=== PATIENT | female | born 1985 | race Caucasian/White ===

== ENCOUNTER → 2016-06-10 | Outpatient (CLI) | payer BC ==
[~2016-06-10] MED LIST: DOCO200C7 PO; ESOM20CA PO; HYDR-3989 PO; LEVO50TA4 PO
== END ==
LOC: LAB 12:55
PROVIDERS: ATTEND Obstetrics & Gynecology Reproductive Endocrinology
DX: N97.9 Female infertility, unspecified (principal)
CPT/HCPCS: 36415; 82670; 84144; 84702

== ENCOUNTER 2017-07-24 15:45 | Inpatient (IN) ==
[2017-07-24] MEDS ORDERED: FAMOTIDINE PB 20 MG/50 ML BAG IV ONE (18:03)
[2017-07-24] MEDS ORDERED: CEFAZOLIN PREMIX (MC ONLY) 2 GM/50 ML BAG IV ONE (18:03)
[2017-07-24] MEDS ORDERED: CEFAZOLIN 1 G INJECTION IVP ONE (18:03)
[2017-07-24] MEDS ORDERED: CITRIC ACID/SODIUM CITRATE 30ml PO ONE (18:03)
--- OUTSIDE RECORDS SUMMARY | 2017-07-24 18:21 | External Medical Summary | Continuity of Care Document ---
:1985 Author Organization [facility] Address [address] [place], [place] [address] Phone Care Team Providers Name Role Phone Slava Cullen MD Unavailable Unavailable Allergies, Adverse Reactions, Alerts Substance Reaction Severity Status ciprofloxacin Hives & Nausea Unknown Active CIPROFLOXACIN HCL Hives & Nausea Unknown Active Medications Medication Instructions Dosage Effective Status Comments Dates (start - stop) MICRhoGAM - - Active Ultra-Filtered PLUS 250 unit (50 mcg) intramuscular syringe Synthroid 75 mcg take 1 tablet by 75 MCG - Active tablet oral route every day 27 mg-0.8 take 1 tablet by Not Available - Active mg tablet oral route every day Synthroid 50 mcg TAKE ONE TABLET BY - No Longer tablet MOUTH DAILY Active Endometrin 100 mg insert 1 vaginal 100 MG - No Longer vaginal inserts insert by vaginal Active route 2 times every day Problems Condition Effective Dates (start - stop) Clinical Status 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) w/o 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 Follow-Up, Routine - Supervision of other high risk - pregnancies, first trimester Twin , - dichorionic/diamniotic, first trimester Encntr screen for infections w sexl - mode of transmiss Encounter for screening for oth - infec/parastc diseases Encounter for screening of - mother 10 weeks gestation of - Hemorrhage in early , - unspecified Twin , - dichorionic/diamniotic, first trimester 12 weeks gestation of - Hypothyroidism, unspecified Follow-Up, Routine Hypothyroidism, unspecified Spotting complicating , first - trimester 12 weeks gestation of - Spotting complicating , first - trimester 13 weeks gestation of - Thyroid Dysfunction w/ Routine Care, Multigravida 38 weeks gestation of - Active Procedures Procedure Date Initial OB Visit No 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 Culture OB Panel With An HIV TSH Venpnctr fngr/heel/ear stick routne Infct antign, chlamydia trac, ampl Neisseria Gonorrhoeae, Amplification Cult, bactr, ident isolate, urine Results Test Name Date and Time Measure Units Reference Range Abnormal Flag Comments Panel Description: OBSTETRIC PANEL WHITE BLOOD CELL 13.2 Thousand/uL 3.8-10.8 H COUNT 13:44:00 RED BLOOD CELL 4.67 Million/uL 3.80-5.10 N COUNT 13:44:00 HEMOGLOBIN 13.4 g/dL 11.7-15.5 N 13:44:00 HEMATOCRIT 40.6 % 35.0-45.0 N 13:44:00 MCV 86.9 fL 80.0-100.0 N 13:44:00 MCH 28.7 pg 27.0-33.0 N 13:44:00 MCHC 33.0 g/dL 32.0-36.0 N 13:44:00 RDW 13.7 % 11.0-15.0 N 13:44:00 PLATELET COUNT 294 Thousand/uL 140-400 N 13:44:00 MPV 10.8 fL 7.5-12.5 N 13:44:00 ABSOLUTE 97797 cells/uL 8963-4242 H NEUTROPHILS 13:44:00 ABSOLUTE 2416 cells/uL 850-3900 N LYMPHOCYTES 13:44:00 ABSOLUTE 541 cells/uL 200-950 N MONOCYTES 13:44:00 ABSOLUTE 79 cells/uL 15-500 N EOSINOPHILS 13:44:00 ABSOLUTE 40 cells/uL 0-200 N BASOPHILS 13:44:00 NEUTROPHILS 76.7 % N 13:44:00 LYMPHOCYTES 18.3 % N 13:44:00 MONOCYTES 4.1 % N 13:44:00 EOSINOPHILS 0.6 % N 13:44:00 BASOPHILS 0.3 % N 13:44:00 ANTIBODY SCREEN, NO ANTIBODIES N RBC W/REFL ID, 13:44:00 DETECTED Reference range TITER AND AG No antibodies detected This assay is a screening test for the detection of red blood cell antibodies. The test is not to be used for pretransfusion screening or for the medical management of an alloimmunized . ABO GROUP A 13:44:00 RH TYPE RH (D) 13:44:00 NEGATIVE RPR (DX) W/REFL NON-REACTIVE NON-REACTIV N TITER AND 13:44:00 E CONFIRMATORY TESTING HEPATITIS B NON-REACTIVE NON-REACTIV N SURFACE ANTIGEN 13:44:00 E RUBELLA ANTIBODY 3.86 index N Index (IGG) 13:44:00 Interpretation ----- <0.90 Not consistent with Immunity 0.90-0.99 Equivocal > or=1.00 Consistent with Immunity The presence of rubella IgG antibody suggests immunization or past or current infection withrubella virus.Test performed at [facility] [id number] [place] [address]Gcuacmr r: SHY CRUZ DO,MPH Panel Description: HIV 1/2 ANTIGEN/ANTIBODY,FOURTH GENERATION W/RFL HIV NON-REACTIVE NON-REACTIVE N HIV-1 antigen and HIV-1/HIV- 2 antibodies were AG/AB, 13:44:00 notdetected. There is no laboratory evidence of 4TH GEN HIVinfection. PLEASE NOTE: This information has been disclosed toyou from records whose confidentiality may beprotected by state law. If your state requires suchprotection, then the state law prohibits you frommaking any further disclosure of the informationwithout the specific written consent of the personto whom it pertains, or as otherwise permitted by law.A general authorization for the release of medical orother information is NOT sufficient for this purpose. For additional information please refer tohttp://education.[employer]/faq/IMI131(This link is being provided for informational/educational purposes only.) The performance of this assay has not been clinicallyvalidated in patients less than 2 years old. [place] [id number]: SHY CRUZ DO,MPH Panel Description: Thyrotropin [Units/volume] in Serum or Plasma TSH 13:44:00 0.70 mIU/L N Reference Range > or=20 Years 0.40-4.50 Ranges First trimester 0.26-2.66 Second trimester 0.55-2.73 Third trimester 0.43-2.91REPORT COMMENT:FASTING:NOTest performed at [facility] [address]Csxhoxqb: SHY CRUZ DO,MPH Panel Description: Bacteria identified in Urine by Culture CULTURE, URINE, SEE NOTE CULTURE, URINE, ROUTINE MICRO ROUTINE 13:46:00 NUMBER: [id number] TEST STATUS: FINAL SPECIMEN SOURCE: URINE SPECIMEN QUALITY: ADEQUATE RESULT: Multiple organisms present, each less than 10,000 CFU/mL. These organisms, commonly found on external and internal genitalia, are considered to be colonizers. No further testing performed.REPORT COMMENT:RFASTING:[place]KNOWNTest [place] [address]Hdllnjmg: SHY CRUZ DO,MPH Panel Description: CHLAMYDIA/N. GONORRHOEAE RNA, TMA CHLAMYDIA NOT DETECTED NOT DETECTED N TRACHOMATIS RNA, 13:44:00 TMA NEISSERIA NOT DETECTED NOT DETECTED N GONORRHOEAE RNA, 13:44:00 TMA [id number] SEE NOTE This test was 13:44:00 performed using the APTIMA COMBO2 Assay([employer] The analytical performance characteristics of this assay, when used to test [employer] specimens havebeen determined by [facility]. REPORT COMMENT:FASTING:UNKNO WNTest performed at [facility] [id number] [place] [address]Tbvdbehq: SHY CRUZ DO,MPH Panel Description: Pap Smear With HPV Reflex If ASCUS Document Pap Smear 13:15:00 See scanned report Advance Directives Directive Yes / No Effective Date File Name Unknown Encounters Encounter Practice Location Reason(s) Diagnoses Date Provider Care Team Description For Visit Members Ben Corbett Spotting Dec-0 Cordell Referring In Womens complicating 5-201 El. 700 Provider: Gustavo DIMAS, , first 7 Medical El [address] [id number] weeks [place] Cordell R, 1522, gestation of Jori Lopezta, 120, Medical [facility] [id number], [place], [facility] 120, [place] [id number] [place], tel:+[phone] , [place]. [place], tel: [phone]. [id number] tel:[phone] Ben Corbett Spotting Nov-3 Cordell Referring In Womens complicating 0-201 El. 700 Provider: Gustavo DIMAS, , first 7 Medical El [address] [id number] weeks Center Cordell R, 1522, gestation of Jori Lopez, 120, Medical [facility] [id number], [place], [facility] 120, [place] [id number] [place], tel:+[phone] , . [place], tel: [phone]. [id number] tel:[phone] Ben Corbett Hemorrhage in early Nov-2 [place] Referring In Womens , 9-201 [place]. Provider: Gustavo DIMAS, aylaTwin 7 700 El [address] , Medical Cordell R, 1522, dichorionic/diamnio Center 700 [place], tay, first , [facility], [id number] weeks 120, [place] [id number], gestation of Corbett, [facility] 120, Aric IBARRA, tel: [phone] [place], , [place]. [id number]. tel: tel: [phone] Ben Corbett Supervision of Cordell Referring In Womens other high risk 5-201 Printer. 700 Provider: Health JUDIE, pregnancies, first 7 Medical Printer PO Box trimesterTwin Center Cordell R, 1522, , , Jori 700 [place], dichorionic/diamnio 120, Medical STACEY, [facility], [facility] Aric, [place] [id number], trimesterEncntr [place], [facility] 120, screen for [id number] Corbett, tel: infections w sexl , [place]. [place], mode of tel: [phone]. 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 700 Provider: Gustavo DIMAS, w/o 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 6 [facility] Tommy [facility] PO Box Center L, [address], , Jori 609, [place], [facility], [place], [place], [place], [address]. , [place], tel: [place] [phone] tel: , [place]. tel: [phone] Ben Corbett Hypothyroidism, Apr- Cordell Referring In Womens unspecified 6-201 Printer. 700 Provider: Gustavo DIMAS, 6 Medical [facility] PO Box Center L, [address], , Jori [address], [place], 120, [place], [place], [place], [address]. , [place], tel: [place] [phone] tel: , [place]. tel: [phone] Ben Corbett Hypothyroidism, Dec-0 Cordell Referring In Womens unspecifiedPostpart 1-201 Printer. 700 Provider: Gustavo DIMAS, Follow-Up, 5 Medical Tommy [place] PO Box Routine Center L, [address], , Jori [address], [place], 120, [place], [place], [place], [address]. [id number], [place], tel: [place] [phone] tel: , [place]. tel: [phone] Ben Corbett Oct-2 Cordell Referring In Womens Follow-Up, Routine 0-201 Printer. 700 Provider: Gustavo DIMAS, Medical Tommy Ruiz PO Box Center L, [address], , Jori [address], [place], 120, [place], [place], [place], [address]. [id number], [place], tel: [phone] tel: , [place]. tel: [phone] Ben Corbett Thyroid Dysfunction Oct-0 Cordell Referring In Womens w/ PregnancyRoutine 1-201 Printer. 700 Provider: Gustavo DIMAS, [facility], 5 Medical Tommy [facility] PO Box [id number] Center L, [address], weeks gestation of , Jori [address], [place], 120, [place], [place], [place], [address]. [id number], [place], tel: [phone] tel: , [place]. tel: [phone] Ben Corbett Sep-1 [place] Referring In Womens 7-201 [place]. Provider: Gustavo DIMAS, [address] [place] [address] PO Box Medical Cordell R, 1522, Center [address] Dr Chang, [facility], 120, [place] [id number], [place], [facility] 120, [facility], A[place], tel:[phone] [place], , [place]. [id number]. tel: tel: [phone] Ben Corbett Mayo-1 Cordlel Referring In Womens 6-201 Printer. 700 Provider: Gustavo DIMAS, 5 Medical Printer PO Box Center Cordell R, 1522, , Jori 700 [place], [facility], Medical [place], [facility] [id number], [place], [facility] 120, [id number] [place], tel: , . [place], tel: [phone]. [id number] tel:[phone] Associates [place] Jesus-3 Cordell Referring In Womens 0-201 Printer. 700 Provider: Health PA, 3 [facility] PO Box Center L, [address], , Jori [address], [place], [facility], [place], [place], [place], [address]. , [place], tel: [phone] tel: , . tel: [phone] Associates [place] Mar-0 Cordell Referring In Womens 3-201 Printer. 700 Provider: Health PA, 2 Medical [facility] PO Box Center L, [address], , Jori [address], [place], [facility], [place], [place], [place], [address]. , [place], tel: [phone] tel: , [place]. tel: [phone] Family History Family Member Diagnosis Age At Onset Maternal Grandmother Cardiovascular Disease Close relative Cancer, breast Sister Gynecological Problem No family history of Ovarian Cancer Paternal Grandmother Thyroid Disorder No family history of Hypertension Paternal Grandmother Renal disease Maternal Grandmother Uterine Cancer Sister Cardiovascular Disorder No family history of Colon Cancer Maternal Grandmother Cancer, breast No family history of Diabetes Immunizations Vaccine Date Status Comments Influenza, injectable, completed Source: Source Unspecified quadrivalent, preservative free, 3 yrs or older Tdap completed Source: New Immunization Record Influenza, seasonal, injectable, completed Source: New Immunization Record preservative free, 3 yrs or older Rhophylac completed Source: New Immunization Record Payers Payer name Insurance type Covered alliance party ID Authorization(s) [facility] [place] [id number] [facility] [place] [id number] [place] [id number] [place] [id number] Social History Type Description Quantity Date Captured Alcohol Use Details No Caffeine Use Details No Tobacco Use Status Never smoked tobacco Smoking Status Never smoker Vital Signs Date / Height Weight BMI Pulse Blood Temperature Respiratory Body Head BMI Time: Rate Pressure Rate Surface Circumference percentile Area 261.10 40.8 132/72 -2017 lbs 9 mm[Hg] 1:18 kg/m PM eter (2) 261.10 40.8 -2017 lbs 9 1:17 kg/m PM eter (2) Chief Complaint And Reason For Visit Unknown Chief Complaint And Reason For Visit Reason For Referral Reason For Referral Unknown Plan Of Care Date Type Action Status Appointment Biju Pollard BOOKED Future Order: Lab Order Pap Smear With HPV Reflex If ASCUS Ordered ([id number]) Date Type Problem Goal Intervention Status Start Date Unknown. History Of Present Illness Encounter Date Complaint History Of Present Illness This patient has no known history of present illness Functional Status Encounter Date Functional Assessment Cognitive Assessment Unknown Medications Administered Medication Instructions Dosage Effective Dates (start - stop) Status Comments Drug Treatment Unknown Instructions Date Instruction Additional Information travel use of any medications (including supplements, vitamins, herbs, OTC drugs) domestic violence seat belt use childbirth classes / hospital facilities hospital registration genetic testing HIV and other routine tests risk factors identified by history anticipated course of care nutrition and weight gain counseling, special diet toxoplasmosis precautions (cats / raw meat) sexual activity exercise indications for ultrasound influenza vaccine environmental / work hazards
--- OUTSIDE RECORDS SUMMARY | 2017-07-24 18:21 | External Medical Summary | Continuity of Care Document ---
:1985 Author Organization [facility] [employer] [facility] Address [address] [place], [place] [address] Phone Care Team Providers Name Role Phone Slava Cullen MD Unavailable Unavailable Allergies, Adverse Reactions, Alerts Substance Reaction Severity Status ciprofloxacin Hives & Nausea Unknown Active CIPROFLOXACIN HCL Hives & Nausea Unknown Active No Known Drug Allergies Unknown No longer active Medications Medication Instructions Dosage Effective Dates Status Comments (start - stop) MICRhoGAM - - Active Ultra-Filtered PLUS 250 unit (50 mcg) intramuscular syringe Synthroid 75 mcg take 1 tablet by 75 MCG - Active tablet oral route every day 27 mg-0.8 take 1 tablet by Not Available - Active mg tablet oral route every day Problems Condition Effective Dates (start - stop) Clinical Status 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) w/o 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 Follow-Up, Routine - Hemorrhage in early , - unspecified Twin , - dichorionic/diamniotic, first trimester 12 weeks gestation of - Supervision of other high risk - pregnancies, first trimester Twin , - dichorionic/diamniotic, first trimester Encntr screen for infections w sexl - mode of transmiss Encounter for screening for oth - infec/parastc diseases Encounter for screening of - mother 10 weeks gestation of - Hypothyroidism, unspecified Follow-Up, Routine Hypothyroidism, unspecified Spotting complicating , first - trimester 12 weeks gestation of - Spotting complicating , first - trimester 13 weeks gestation of - Spotting complicating , - second trimester Twin , - dichorionic/diamniotic, second trimester 14 weeks gestation of - Thyroid Dysfunction w/ Routine Care, Multigravida 38 weeks gestation of - Active Procedures Procedure Date OB Visit No Charge RhIG, human, mini-dose, intramuscular use Injection Administration Results Test Name Date and Time Measure Units Reference Range Abnormal Flag Comments Unknown Advance Directives Directive Yes / No Effective Date File Name Unknown Encounters Encounter Practice Location Reason(s) Diagnoses Date Provider Care Team Description For Visit Members Ben Corbett Spotting Dec-1 [place]ell Referring In Womens complicating 3-201 El. 700 Provider: Gustavo DIMAS, , second 7 Medical El BONNER Box trimesterTwin [place], 1522, , Jori Lopez [place], dichorionic/diamnio 120, Medical STACEY, [facility], [facility] [id number], [email or web address] weeks STACEY [facility] 120, [place] gestation of [id number] [place], tel: , [place]. [place], tel: [phone]. [id number] tel:[phone] Ben Jennings Dec-0 Cordell Referring In Womens complicating 5-201 El. 700 Provider: Gustavo DIMAS, , first 7 Medical lE [address] Box [id number] weeks Emily [place], 1522, gestation of Jori Lopez [place], 120, Medical STACEY [facility] [id number], [facility] 120, [place] [id number] [place], tel: , [facility], tel: [phone]. [id number] tel:[phone] Ben Corbett Spotting Nov-3 [place] Referring In Womens complicating 0-201 El. 700 Provider: Gustavo DIMAS, , first 7 Medical El PO Box [id number] weeks Center Cordell R, 1522, gestation of Jori Lopez 700 [place], 120, Medical [place] IBARRA, [place] [id number], [place], [facility] 120, [place] [id number] [place], tel: , [place]. [place], tel: [phone]. [phone] tel:[phone] Ben Corbett Hemorrhage in early Nov-2 [place] Referring In Womens , 9-201 [place]. Provider: Gustavo DIMAS, unspecifiedTwin 7 700 El PO Box , Medical Cordell R, 1522, dichorionic/diamnio Center 700 tay [place], first Lopez, [facility], [id number] weeks 120, Center [id number], gestation of Corbett, [facility] 120, [place] IBARRA, tel: [phone] [place], , [place]. [id number]. tel: tel: [phone] Ben Corbett Supervision of Jan-1 Cordell Referring In Womens other high risk 5-201 [place]. 700 Provider: Gustavo DIMAS, pregnancies, first 7 Medical El PO Box trimesterTwin Center Cordell R, 1522, , Jori Lopez, dichorionic/diamnio 120, Medical STACEY [facility], [facility] Aric [place] [id number], trimesterEncntr [place], [facility] 120, [place] screen for [id number] [place], tel: infections w sexl , [place]. [place], mode of tel: [phone]. 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 700 Provider: Gustavo DIMAS, w/o 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 6 Medical Tommy Irisel PO Box Center L, [address], Jori Lopez, Chang 120, [place], [place], [place], [address]. , [place], tel: [place] [phone] tel: , [place]. tel: [phone] Associates [place] Hypothyroidism, b- Cordell Referring In Womens unspecified 6 [place]. 700 Provider: Gustavo DIMAS, 6 Medical Tommy Ruiz PO Box Center L, [address], Jori Lopez, [place], 120, [place], [place], [place], [address]. , [place], tel: [phone] tel: , [place]. tel: [phone] Associates [place] Hypothyroidism, Dec-0 Cordell Referring In Womens unspecifiedPostpart [place]. 700 Provider: Gustavo DIMAS Follow-Up, 5 Medical Tommy Ruiz PO Box Routine Center L, [address], Jori Lopez, [place], [facility], [place], [place], [place], [address]. , [place], tel: [phone] tel: , [place]. tel: [phone] Ben Corbett Oct-2 Cordell Referring In Womens Follow-Up, Routine 0-201 [place]. 700 Provider: Gustavo DIMAS, 5 Medical Tommy Ruiz PO Box Center L, [address], Jori Lopez, [place], [facility], [place], [place], [place], [address]. , [place], tel: [phone] tel: , [place]. tel: [phone] Associates [place] Thyroid Dysfunction Oct-0 Cordell Referring In Womens w/ PregnancyRoutine [place]. 700 Provider: Gustavo DIMAS [facility], 5 Medical Tommyrneata Ruiz PO Box [id number] Center L, [address], weeks gestation of Jori Lopez, [place], 120, [place], [place], [place], [address]. , [place], tel: [phone] tel: , [place]. tel: [phone] Ben Corbett Sep-1 [place] Referring In Womens 7-201 [place]. Provider: Health JUDIE, [address] [place] [address] Cordell Cornell, 1522, Center [address] Chang, [facility], 120, [place] [id number], [place], [facility] 120, [email or web address] [place], tel: [phone] [place], , [place]. [id number]. tel: tel: [phone] Ben Corbett Mayo-1 Cordell Referring In Womens 6-201 [place]. 700 Provider: Health PA, 5 [facility] Cordell Cornell, 1522, , Jori 700 [place], [facility], [facility], [place], [place] [id number], [place], [facility] 120, [id number] [place], tel: , [place], tel: [phone]. [id number] tel:[phone] Ben Corbett Jesus-3 Cordell Referring In Womens 0-201 [place]. 700 Provider: Health JUDIE, 3 [facility] Box Center L, [address], , Jori 609, [place], [facility], [place], [place], [place], [address]. [id number], [place], tel: [phone] tel: , [place]. tel: [phone] Ben Corbett Jesus-0 Cordell Referring In Womens 3-201 [place]. 700 Provider: Health PA, 2 [facility] Box Center L, [address], , Jori 609, [place], 120, [place], [place], [place], [address]. [id number], [place], tel: [phone] tel: , [place]. tel: [phone] Family History Family Member Diagnosis Age At [...] Record Payers Payer name Insurance type Covered libertarian ID Authorization(s) [facility] [id number] [facility] [id number] [facility] [id number] [facility] [id number] Social History Type Description Quantity Date Captured Alcohol Use Details No Caffeine Use Details Unknown Tobacco Use Status Unknown Smoking Status Never smoker Vital Signs Date / Height Weight BMI Pulse Blood Temperature Respiratory Body Head BMI Time: Rate Pressure Rate Surface Circumference percentile Area 264.10 41.3 122/68 2017 lbs 6 mm[Hg] 8:28 kg/m AM eter (2) Chief Complaint And Reason For [...]
--- OUTSIDE RECORDS SUMMARY | 2017-07-24 18:22 | External Medical Summary | Continuity of Care Document ---
:1985 Author Organization [facility] Address [address] [place], [place] [id number] Phone Care Team Providers Name Role Phone Slava Cullen MD Unavailable Unavailable Allergies, Adverse Reactions, Alerts Substance Reaction Severity Status ciprofloxacin Hives & Nausea Unknown Active CIPROFLOXACIN HCL Hives & Nausea Unknown Active Medications Medication Instructions Dosage Effective Dates Status Comments (start - stop) iron 325 mg (65 mg take 1 tablet by 325 MG - Active iron) tablet ORAL route every day loratadine 10 mg take 1 tablet by 10 MG - Active tablet oral route every day Stool Softener 50 take 1 capsule by 50 MG - Active mg capsule oral route every day at bedtime as needed Rhophylac 1,500 - Active unit (300 mcg)/2 mL injection syringe folic acid 800 mcg take 3 tablet by 2.4 MG - Active tablet oral route every day Synthroid 75 mcg take 1 tablet by 75 MCG - Active tablet oral route every day 27 mg-0.8 take 1 tablet by Not Available - Active mg tablet oral route every day Problems Condition Effective Dates (start - stop) Clinical Status 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) w/o 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 Follow-Up, Routine - Twin , - dichorionic/diamniotic, third trimester 29 weeks gestation of - Twin , - dichorionic/diamniotic, second trimester Previous Low Transverse - Endo, nutritional and metab diseases - comp preg, second tri 22 weeks gestation of - Twin , - dichorionic/diamniotic, third trimester 31 weeks gestation of - Hypothyroidism, unspecified Follow-Up, Routine Hypothyroidism, unspecified Supervision of other high risk - pregnancies, first trimester Twin , - dichorionic/diamniotic, first trimester Encntr screen for infections w sexl - mode of transmiss Encounter for screening for oth - infec/parastc diseases Encounter for screening of - mother 10 weeks gestation of - Hemorrhage in early , - unspecified Twin , - dichorionic/diamniotic, first trimester 12 weeks gestation of - Spotting complicating , first - trimester 12 weeks gestation of - Spotting complicating , first - trimester 13 weeks gestation of - Spotting complicating , - second trimester Endo, nutritional and metab diseases - comp preg, second tri 15 weeks gestation of - Spotting complicating , - second trimester Twin , - dichorionic/diamniotic, second trimester 14 weeks gestation of - Spotting complicating , - second trimester Twin , - dichorionic/diamniotic, second trimester Previous Low Transverse - 27 weeks gestation of - Oth related conditions, - second trimester Twin , - dichorionic/diamniotic, second trimester 17 weeks gestation of - Twin , - dichorionic/diamniotic, second trimester Previous Low Transverse - Endo, nutritional and metab diseases - comp preg, second tri 19 weeks gestation of - Twin , - dichorionic/diamniotic, second trimester 19 weeks gestation of - Twin , - dichorionic/diamniotic, second trimester 27 weeks gestation of - Twin , - dichorionic/diamniotic, second trimester 25 weeks gestation of - Twin , - dichorionic/diamniotic, second trimester Endo, nutritional and metab diseases - comp preg, second tri 25 weeks gestation of - Type A blood, Rh negative - Thyroid Dysfunction w/ Routine Care, Multigravida 38 weeks gestation of - Active Procedures Procedure Date OB Visit No Charge Results Test Name Date and Time Measure Units Reference Range Abnormal Flag Comments Unknown Advance Directives Directive Yes / No Effective Date File Name Unknown Encounters Encounter Practice Location Reason(s) Diagnoses Date Provider Care Team Description For Visit Members [facility] Twin , Cord[place] Referring In Womens dichorionic/diamn 2-201 El. [place] Provider: katrin Finley, third 8 Medical El [address] [id number] weeks [place], 1522, gestation of Jori Lopez, 120, Medical [facility] [id number], STACEY, [facility] 120, [id number] [place], tel: , . ST[place]Y, [id number] tel: [phone]. [id number] tel:[phone] Ben [place] Twin , Cordell Referring In Womens dichorionic/diamn 8-201 El. [facility] Provider: katrin Finley, third 8 Medical El PO [address] [id number] weeks [place], 1522, gestation of Jori Lopez, 120, Medical Aric IBARRAFormerly [facility] [id number], [place], Jori 120, [place] [id number] [place], tel: , [place]. [place], tel:[phone]. [id number] tel:[phone] Ben [place] Mar- Hutchinson Referring In Womens 6-201 [place]. Provider: Gustavo DIMAS, 8 700 [facility] [place], 1522, [place] [address], [facility] [place], 120, [place] [id number], [place], Jori 120, [place] Airc IBARRA, tel:[phone] [place], , [place]. [id number]. tel: tel: [phone] Ben [place] Twin , May- Cordell Referring In Womens dichorionic/diamn 4-201 [place]. 700 Provider: katrin Finley, second 8 Medical [facility] Box weeks [place], 1522, gestation of Dr [facility] Saskia Downing, 120, Medical Aric IBARRAFormerly [facility] [id number], [place], Jori 120, [place] [id number] Aric, tel: , [place]. [place], tel: [phone]. [id number] tel:[phone] Ben [place] Spotting May- Cordell Referring In Womens Ultrasound complicating -201 [place]. 700 Provider: Gustavo DIMAS, , second 8 Medical [facility] Shayla trimesterTwin [place] Cornell, 1522, , Dr Jori Saskia Downign, dichorionic/diamn 120, Medical STACEY, iot, [facility] [id number], trimesterPrevious [place], [facility] 120, [place] Low Transverse [id number] Aric, tel: C-[id number] weeks , [place]. [place], gestation of tel:[phone]. [id number] tel:[phone] Ben [place] Twin , Fe- Cordell Referring In Womens dichorionic/diamn 7-201 [place]. 700 Provider: Gustavo DIMAS iotblake, second 8 Medical [facility] Box trimesterEndo, [place], 1522, nutritional and [place] Lopez, metab diseases 120, Medical [place], comp preg, second AricFormerly [facility] [id number], tri25 weeks [place], [facility] 120, [place] gestation of [id number] Aric, tel: pregnancyType A , [place]. [place], blood, Rh tel:[phone]. negative [id number] tel:[phone] Ben [place] Twin , Feb-2 [place]ell Referring In Womens dichorionic/diamn 3-201 [place]. 700 Provider: Health JUDIE iotic, second 8 Medical El PO Box [id number] weeks Center [place] Cornell, 1522, gestation of [place] Lopez, 120, Medical [place], [place], [place] [id number], [place], [facility] 120, [place] [id number] Aric, tel: , [place]. [place], tel:[phone]. [id number] tel:[phone] Ben [place] Twin , Feb-0 [place]ell Referring In Womens dichorionic/diamn 8-201 [place]. 700 Provider: Health JUDIE iotic, second 8 Medical [place] PO Box trimesterPrevious Center Cordell R, 1522, Low Transverse Dr Jori Saskia Downing, C-SectionEndo, 120, Medical [place], nutritional and AricFormerly [facility] [id number], metab diseases [place], [facility] 120, [place] comp preg, second [id number] [place], tel: tri22 weeks , [place]. [place], gestation of tel:[phone]. [id number] tel:[phone] Ben [place] Feb-0 Cordell In Womens 1-201 [place]. 700 Health [place], 8 Medical PO Box Center 1522, Jori Lopez, 120, STACEY, [place], [id number], [place], [place] [id number] tel: , [place]. tel: [phone] Ben [place] Oth Jesus-2 Cord[place] Referring In Womens related 4-201 [place]. 700 Provider: Health donald DIMAS, 8 Medical [place] PO Box second trimester Center Cord[place] Cornell, 1522, Jori Lopez, 120, Medical A[place] IBARRA, [place] [id number], [place], Jori 120, [place] [id number] Aric, tel: , [place]. [place], tel:[phone]. [id number] tel:[phone] [facility] Twin , Jesus-1 Cordell Referring In Womens dichorionic/diamn 8-201 El. 700 Provider: katrin Finley, second 8 Medical El PO Box [id number] weeks Center [place] Cornell, 1522, gestation of Jori Lopez, 120, Medical Aric IBARRA, [place] [id number], [place], Jori 120, [place] [id number] Aric, tel: , [place]. [place], tel:[phone]. [id number] tel:[phone] [facility] Twin , Jesus-1 Cordell Referring In Womens Ultrasound dichorionic/diamn 8-201 El. 700 Provider: katrin Finley, second 8 Medical El PO Box trimesterPrevious Center [place] Cornell, 1522, Low Transverse Jori Lopez, C-SectionEndo, 120, Medical STACEY, nutritional and AricFormerly [facility] [id number], metab diseases [place], Jori 120, [place] comp preg, second [id number] Aric, tel: tri19 weeks , [place]. [place], gestation of tel: [phone]. [id number] tel:[phone] Ben [place] Twin , Jesus-0 Cordell Referring In Womens dichorionic/diamn 3-201 El. 700 Provider: Gustavo DIMAS iotblake, second 8 Medical El PO Box [id number] weeks Center [place] Cornell, 1522, gestation of Jori Lopez, 120, Medical Aric IBARRA, [place] [id number], [place], Jori 120, [place] [id number] Aric, tel: , [place]. [place], tel:[phone]. [id number] tel:[phone] [facility] Spotting Dec-2 Cordell Referring In Womens complicating 0-201 El. 700 Provider: Gustavo DIMAS, , second 7 Medical El PO Box trimesterEndo, Center [place] Cornell, 1522, nutritional and [place] Lopez, metab diseases 120, Medical [place], comp preg, second AricFormerly [facility] [id number], tri15 weeks [place], [place]ori 120, [place] gestation of [id number] Aric, tel: , [place]. [place], tel: [phone]. [id number] tel:[phone] [facility] Spotting Dec-1 Cordell Referring In Womens complicating 3-201 El. 700 Provider: Gustavo DIMAS, , second 7 Medical El PO Box trimesterTwin Center Cordell R, 1522, , J[place] Lopez, dichorionic/diamn 120, Medical [place], iotic, second AricFormerly [facility] [id number], weeks [place], Jori 120, [place] gestation of [id number] Aric, tel: , [place]. [place], tel: [phone]. [id number] tel:[phone] Ben [place] Spotting Dec-0 Cordell Referring In Womens complicating 5-201 El. 700 Provider: Gustavo DIMAS, , first 7 Medical El PO Box [id number] weeks Center Cord[place] R, 1522, gestation of Jori Lopez, 120, Medical Aric IBARRAFormerly [facility] [id number], [place], Jori 120, [place] [id number] Aric, tel: , [place]. [place], tel: [phone]. [id number] tel:[phone] Ben [place] Spotting Nov-3 Cordell Referring In Womens complicating 0-201 El. 700 Provider: Gustavo DIMAS, , first 7 Medical El PO Box [email or web address] weeks Center Cordell R, 1522, gestation of Jori Lopez, 120, Medical Aric IBARRAFormerly [facility] [id number], [place], Jori 120, [place] [id number] Aric, tel: , [place]. [place], tel: [phone]. [id number] tel:[phone] Ben [place] Hemorrhage in Nov-2 [place] Referring In Womens early , 9-201 [place]. Provider: Gustavo DIMAS, unspecifiedTwin 7 700 El PO Box , Medical [place] R, 1522, dichorionic/diamn Center 700 [place], iotic, first , [facility], [id number] weeks 120, [place] [id number], gestation of Kamrar, Ojri 120, [place] Aric IBARRA, tel:[phone] [place], , [place]. [id number]. tel: tel: [phone] Ben [place] Supervision of Cordell Referring In Womens other high risk 5-201 [place]. 700 Provider: Health [place], pregnancies, 7 Medical [place] PO Box first Center Cord[place] R, 1522, trimesterTwin , Jori 700 [place], , 120, Medical [place], dichorionic/diamn CorbettFormerly [facility] [id number], [facility], [facility], Jori 120, [place] trimesterEncntr [id number] Aric, tel: screen for , [place]. [place], infections w sexl tel: [phone]. 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 700 Provider: Health JUDIE, (routine) w/o abn 6 [facility] PO Box findings Center L, [address], , Jori 609, [place], 120, [place], [place], [place], [address]. , [place], tel: [place] [phone] tel: , [place]. tel: [phone] Ben [place] Hypothyroidism, Apr- Cordell Referring In Womens unspecified -201 [place]. 700 Provider: Health JUDIE, 6 [facility] PO Box Center L, [address], , Jori 609, [place], 120, [place], [place], [place], [address]. , [place], tel: [place] [phone] tel: , . tel: [phone] Ben [place] Hypothyroidism, Dec-0 Cord[place] Referring In Womens unspecifiedPostpa 1-201 [place]. 700 Provider: Health JUDIE, rtum Follow-Up, 5 [facility] PO Box Routine Center L, [address], , Jori 609, [place], 120, [place], [place], [place], [address]. [id number], [place], tel: [place] [phone] tel: , [place]. tel: [phone] Ben [place] Oct-2 Cordell Referring In Womens Follow-Up, 0-201 [place]. 700 Provider: Health JUDIE, Routine 5 Medical [facility] PO Box Center L, [address], , [address] 609, [place], 120, [place], [place], [place], [address]. [id number], [place], tel: [phone] tel: , [place]. tel: [phone] Ben [place] Thyroid Oct-0 [place] Referring In Womens Dysfunction w/ -201 [place]. 700 Provider: Health JUDIE, PregnancyRoutine 5 Medical [facility] PO Box Care, Center L, [address], [id number] , Jori [address], [place], weeks gestation 120, [place], [place], [place], [address]. , [place], tel: [phone] tel: , [place]. tel: [phone] Ben [place] Sep-1 [place] Referring In Womens 7-201 [place]. Provider: Health [place], 5 700 [facility] Box Medical Cord[place] R, 1522, Center [address] Dr Chang, [facility], 120, [place] [id number], Aric, [facility] 120, [facility], [place], tel:[phone] [place], , [place]. [id number]. tel: tel: [phone] Ben [place] Mayo-1 [place]ell Referring In Womens 6-201 [place]. 700 Provider: Health JUDIE, 5 Medical [facility] Box Center Cord[place] R, 1522, , Jori 700 [place], 120, Medical [place], AricFormerly [facility] [id number], [place], Jori 120, [place] [id number] [place], tel: , [place]. [place], tel: [phone]. [id number] tel:[phone] [facility] Mar-3 [place] Referring In Womens 0-201 [place]. 700 Provider: Health PA, 3 Medical [facility] PO Box Center L, [address], Dr Jori [address], [place], [facility], [place], [place], [place], [address]. [id number], [place], tel: [place] [phone] tel: , [place]. tel: [phone] [facility] Mar-0 [place] Referring In Womens 3-201 [place]. 700 Provider: Health PA, 2 Medical [facility] PO Box Center L, [address], , Jori [address], [place], [facility], [place], [place], [place], [address]. , [place], tel: [phone] tel: , [place]. tel: [phone] Family History Family Member Diagnosis Age At [...] of Diabetes Immunizations Vaccine Date Status Comments Tdap completed Source: New Immunization Record Rhophylac completed Source: New Immunization Record Influenza, injectable, completed Source: Source Unspecified quadrivalent, preservative free, 3 yrs or older Tdap completed Source: New Immunization Record Influenza, seasonal, injectable, completed Source: New Immunization Record preservative free, 3 yrs or older Rhophylac completed Source: New Immunization Record Payers Payer name Insurance type Covered libertarian ID Authorization(s) [facility] [id number] [facility] [id number] [place] [id number] [place] [id number] [place] [id number] [place] [id number] Social History Type Description Quantity Date Captured Alcohol Use Details No Caffeine Use Details Unknown Tobacco Use Status Unknown Smoking Status Never smoker Vital Signs Date / Height Weight BMI Pulse Blood Temperature Respiratory Body Head BMI Time: Rate Pressure Rate Surface Circumference percentile Area 283.40 44.3 138/74 -2018 lbs 8 mm[Hg] 1:43 kg/m PM eter (2) Chief Complaint And Reason For Visit Unknown Chief Complaint And Reason For Visit Reason For Referral Reason For Referral Unknown Plan Of Care Date Type Action Status Appointment Biju Pollard BOOKED Appointment Dago Pollard BOOKED Appointment Biju Pollard BOOKED Appointment Biju Pollard [facility] [place] Future Order: Radiology Order Ultrasound OB Follow-up ([id number]) Ordered Future Order: Radiology Order Complete OB Ultrasound > 14 Ordered Weeks ([id number]) Future Order: Lab Order Pap Smear With [...]
--- OUTSIDE RECORDS SUMMARY | 2017-07-24 18:22 | External Medical Summary | Continuity of Care Document ---
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) w/o 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 Follow-Up, Routine - Twin , - dichorionic/diamniotic, third trimester Previous Low Transverse - Anemia complicating , third - trimester Endo, nutritional and metab diseases - comp preg, third tri Twin , - dichorionic/diamniotic, second trimester Previous Low Transverse - Endo, nutritional and metab diseases - comp preg, second tri 22 weeks gestation of - Twin , - dichorionic/diamniotic, third trimester 31 weeks gestation of - Twin , - dichorionic/diamniotic, third trimester 33 weeks gestation of - Hypothyroidism, unspecified Follow-Up, [...] Transverse - 27 weeks gestation of - Spotting complicating , third - trimester Twin , - dichorionic/diamniotic, third trimester Previous Low Transverse - 32 weeks gestation of - Oth related conditions, [...] - Type A blood, Rh negative - Twin , - dichorionic/diamniotic, third trimester Previous Low Transverse - Endo, nutritional and metab diseases - comp preg, third tri Type A blood, Rh negative - Twin , - dichorionic/diamniotic, third trimester 29 weeks gestation of - Thyroid Dysfunction w/ Routine Care, Multigravida 38 weeks gestation of - Active Procedures Procedure Date OB Visit No Charge Automated hemogram (CBC) Assay thyroid stimulating hormone Venpnctr fngr/heel/ear stick routne Results Test Name Date and Time Measure Units Reference Range Abnormal Flag Comments Panel Description: CBC With Differential/Platelet WBC 09:19:00 11.4 x10E3/uL 3.4-10.8 H RBC 09:19:00 4.12 x10E6/uL 3.77-5.28 Hemoglobin 09:19:00 11.2 g/dL 11.1-15.9 Hematocrit 09:19:00 36.0 % 34.0-46.6 MCV 09:19:00 87 fL 79-97 MCH 09:19:00 27.2 pg 26.6-33.0 MCHC 09:19:00 31.1 g/dL 31.5-35.7 L RDW 09:19:00 15.7 % 12.3-15.4 H Platelets 09:19:00 262 x10E3/uL 150-379 Neutrophils 09:19:00 81 % Not Estab. Lymphs 09:19:00 13 % Not Estab. Monocytes 09:19:00 4 % Not Estab. Eos 09:19:00 1 % Not Estab. Basos 09:19:00 0 % Not Estab. Immature Cells 09:19:00 Neutrophils (Absolute) 09:19:00 9.3 x10E3/uL 1.4-7.0 H Lymphs (Absolute) 09:19:00 1.5 x10E3/uL 0.7-3.1 Monocytes(Absolute) 09:19:00 0.4 x10E3/uL 0.1-0.9 Eos (Absolute) 09:19:00 0.1 x10E3/uL 0.0-0.4 Baso (Absolute) 09:19:00 0.0 x10E3/uL 0.0-0.2 Immature Granulocytes 09:19:00 1 % Not Estab. Immature Grans (Abs) 09:19:00 0.1 x10E3/uL 0.0-0.1 NRBC 09:19:00 Hematology Comments: 09:19:00 Panel Description: Thyrotropin [Units/volume] in Serum or Plasma by Detection limit <=0.05 mIU/L TSH 09:19:00 1.800 uIU/mL 0.450-4.500 Reference Interval : First Trimester 0.100 - 2.500 Second Trimester 0.200 - 3.000 Third Trimester 0.300 - 3.000 . Non- Adult 0.450 - 4.500 Advance Directives Directive Yes / No Effective Date File Name Unknown Encounters Encounter Practice Location Reason(s) Diagnoses Date Provider Care Team Description For Visit Members Ben Corbett Twin , Sobbing Referring In Womens dichorionic/diamn 3-201 [place]. Provider: katrin Finley, third 8 700 [facility] trimesterPrevious Medical Cordell Cornell, 1522, Low Transverse Center [address] [place], [place] [address], nutritional and [facility] [id number], metab diseases 120, Jori 120, [place] comp preg, third Aric Corbett, tel: triType A blood, [place], [place], Rh negative [address], [id number]. [place]. tel: tel: [phone] Ben Corbett Twin , Apr-2 Cordell Referring In Womens dichorionic/diamn 5-201 [place]. [facility] Provider: Gustavo DIMAS [email or web address], third 8 Medical [facility] Box [email or web address] weeks Center Cordell Cornell, 1522, gestation of Jori Lopez, 120, Medical [facility] [id number], [place], Jori 120, [place] [id number] Aric, tel: , [place]. [place], tel: [phone]. [id number] tel:[phone] Ben Corbett Spotting Apr-1 Cordell Referring In Womens Ultrasound complicating -201 [place]. 700 Provider: Gustavo DIMAS, , third 8 Medical El PO Box trimesterTwin Center Cordell Cornell, 1522, , [place] Lopez, dichorionic/diamn 120, Medical STACEY, iotic, third Aric [place] [id number], trimesterPrevious [place], J[place] 120, [place] Low Transverse [id number] Aric, tel: C-[id number] weeks , [place]. [place], gestation of tel:[phone]. [id number] tel:[phone] Ben Corbett Twin , Apr-1 Cordell Referring In Womens dichorionic/diamn 9-201 [place]. 700 Provider: Health PA, iotic, third 8 Medical El PO Box trimesterPrevious Center Cordell Cornell, 1522, Low Transverse J[place] Lopez, C-SectionAnemia 120, Medical STACEY, complicating Aric [place] [id number], , third [place], Jori 120, [place] trimesterEndo, [id number] Aric, tel: nutritional and , [place]. [place], metab diseases tel:[phone]. comp preg, third [id number] tel: tri [phone] Ben Corbett Twin , Apr-1 Cordell Referring In Womens dichorionic/diamn 2-201 [place]. 700 Provider: Health PA, iotic, third 8 Medical El PO Box [email or web address] weeks Center Cordell Cornell, 1522, gestation of Jori Lopez, 120, Medical [facility] [id number], [place], Jori 120, [place] [id number] Aric, tel: , [place]. [place], tel:[phone]. [id number] tel:[phone] Ben Corbett Twin , Mar-2 Cordell Referring In Womens dichorionic/diamn 8-201 [place]. 700 Provider: Health PA, iotic, third 8 Medical El PO Box [id number] weeks Center Cordell Cornell, 1522, gestation of Jori Lopez, 120, Medical A[facility] [id number], [place], Jori 120, [place] [id number] Aric, tel: , [place]. [place], tel:[phone]. [id number] tel:[phone] Ben Corbett Mar-1 [place] Referring In Womens 6-201 [place]. Provider: Health JUDIE, 8 700 [facility] Cordell Cornell, 1522, Center [address], [facility] [place], 120, Center [id number], Corbett, [facility] 120, [place] Aric IBARRA, tel: [phone] [place], , [place]. [id number]. tel: tel: [phone] Ben Corbett Twin , May- Cordell Referring In Womens dichorionic/diamn 4-201 [place]. 700 Provider: Health JUDIE, iotic, second 8 Medical [facility] Box [email or web address] weeks Center Cordell Cornell, 1522, gestation of Dr [facility] Saskia Downing, 120, Medical [facility] [id number], [place], [facility] 120, [place] [id number] Aric, tel: , [place]. [place], tel:[phone]. [id number] tel:[phone] Ben Corbett Spotting May- Cordell Referring In Womens Ultrasound complicating [place]. 700 Provider: Health JUDIE, , second 8 Medical [facility] Box trimesterTwin Center Cordell Cornlel, 1522, , Dr [facility] Saskia Downing, dichorionic/diamn 120, Medical STACEY, iotic, [facility] [id number], trimesterPrevious [place], [facility] 120, [place] Low Transverse [id number] Aric, tel: C-[id number] weeks , [place]. [place], gestation of tel:[phone]. [id number] tel:[phone] Ben Corbett Twin , Apr- Cordell Referring In Womens dichorionic/diamn 7-201 [place]. 700 Provider: Health JUDIE iotic, second 8 Medical [facility] Box trimesterEndo, [place] Cordell R, 1522, nutritional and Dr [place] [address] [place], metab diseases 120, Medical [place], comp preg, second [facility] [id number], tri25 weeks [place], [facility] 120, [place] gestation of [id number] Aric, tel: pregnancyType A , [place]. [place], blood, Rh tel:[phone]. negative [id number] tel:[phone] Associates Aric Twin , Apr-2 Cordell Referring In Womens dichorionic/diamn 3-201 [place]. 700 Provider: Health JUDIE iotic, second 8 Medical El PO Box [id number] weeks Center Cordell R, 1522, gestation of Jori Lopez, 120, Medical STACEY, Aric, [place] [id number], [place], Jori 120, [place] [id number] Aric, tel: , [place]. [place], tel:[phone]. [id number] tel:[phone] Associates Aric Twin , Apr-0 Cordell Referring In Womens dichorionic/diamn 8-201 [place]. 700 Provider: katrin Finley, second 8 Medical El PO Box trimesterPrevious Center Cordell R, 1522, Low Transverse Jori Lopez, C-SectionEndo, 120, Medical STACEY, nutritional and [facility] [id number], metab diseases [place], Jori 120, [place] comp preg, second [id number] Aric, tel: tri22 weeks , [place]. [place], gestation of tel:[phone]. [id number] tel:[phone] Ben Corbett Oth Jesus- Cordell Referring In Womens related 4-201 [place]. 700 Provider: Gustavo DIMAS, conditions, 8 Medical El PO Box second trimester Center Cordell R, 1522, Jori Lopez, 120, Medical Aric [facility] [id number], [place], Jori 120, [place] [id number] Aric, tel: , [place]. [place], tel: [phone]. [id number] tel:[phone] Associates Aric Twin , Mar- Cordell Referring In Womens dichorionic/diamn 8-201 [place]. 700 Provider: Health JUDIE iotic, second 8 Medical El PO Box weeks Center Cordell R, 1522, gestation of Jori Lopez, 120, Medical STACEY, [facility] [id number], [place], Jori 120, [place] [id number] Aric, tel: , [place]. [place], tel: [phone]. [id number] tel:[phone] Ben Corbett Twin , Jesus-1 Cordell Referring In Womens Ultrasound dichorionic/diamn 8-201 [place]. 700 Provider: katrin Finley, second 8 Medical El PO Box trimesterPrevious Center Cordell Cornell, 1522, Low Transverse Jori Lopez, C-SectionEndo, 120, Medical STACEY, nutritional and Aric, [place] [id number], metab diseases [place], Jori 120, [place] comp preg, second [id number] Aric, tel: tri19 weeks , [place]. [place], gestation of tel: [phone]. [id number] tel:[phone] Ben Corbett Twin , Jesus-0 Cordell Referring In Womens dichorionic/diamn 3-201 [place]. 700 Provider: katrin Finley, second 8 Medical El PO Box [email or web address] weeks Center Cordell Cornell 1522, gestation of Jori Lopez, 120, Medical STACEY, [facility] [id number], [place], Jori 120, [place] [id number] Aric, tel: , [place]. [place], tel: [phone]. [id number] tel:[phone] Ben Corbett Spotting Dec-2 Cordell Referring In Womens complicating 0-201 [place]. 700 Provider: Gustavo DIMAS, , second 7 Medical El PO Box trimesterEndo, Center Cordell Cornell 1522, nutritional and Jori Lopez, metab diseases 120, Medical STACEY, comp preg, second [facility] [id number], tri15 weeks [place], Jori 120, [place] gestation of [id number] Aric, tel: , [place]. [place], tel: [phone]. [id number] tel:[phone] Ben Corbett Spotting Dec-1 Cordell Referring In Womens complicating 3-201 [place]. 700 Provider: Gustavo DIMAS, , second 7 Medical El PO Box trimesterTwin Center Cordell Cornell 1522, , Jori Lopez, dichorionic/diamn 120, Medical STACEY, iotic, second [facility] [id number], [email or web address] weeks [place], [facility] 120, [place] gestation of [id number] Aric, tel: , [place]. [place], tel:[phone]. [id number] tel:[phone] Ben Corbett Spotting Dec-0 Cordell Referring In Womens complicating 5-201 [place]. 700 Provider: Gustavo DIMAS, , first 7 Medical El PO Box [email or web address] weeks Center Cordell R, 1522, gestation of Dr [place], 120, Medical Aric [facility] [id number], [place], [facility] 120, [place] [id number] Aric, tel: , [place]. [place], tel:[phone]. [id number] tel:[phone] Ben Corbett Spotting Nov-3 Cordell Referring In Womens complicating 0-201 [place]. 700 Provider: Gustavo DIMAS, , first 7 Medical El PO Box [id number] weeks Center Cordell R, 1522, gestation of Dr [facility] [place]ia [place], 120, Medical A[facility] [id number], [place], [facility] 120, [place] [id number] Aric, tel: , [place]. [place], tel:[phone]. [id number] tel:[phone] Ben Corbett Hemorrhage in Nov- [place] Referring In Womens early , 9-201 [place]. Provider: Gustavo DIMAS, unspecifiedTbernardo 7 700 El PO Box , Medical Cordell R, 1522, dichorionic/diamn Center 700 katrin Downing, [facility] , [facility] STACEY, [email or web address] weeks 120, [place] [id number], gestation of Aric, [facility] 120, [place] Aric IBARRA, tel:[phone] [place], , [place]. [id number]. tel: tel: [phone] Ben Corbett Supervision of Jan- Cordell Referring In Womens other high risk 5-201 [place]. 700 Provider: Gustavo DIMAS, pregnancies, 7 Medical El PO Box first Center Cordell R, 1522, trimesterTwin Dr, [address], , 120, Medical [place], dichorionic/diamn [facility] [id number], iotic, first [place], Jori 120, [place] trimesterEncntr [id number] Aric, tel: screen for , [place]. [place], infections w sexl tel: [phone]. 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 700 Provider: Health PA, (routine) w/o abn 6 Medical Tommy Irisel PO Box findings Center L, [address], , Jori 609, [place], [facility], [place], [place], [place], [address]. , [place], tel: [phone] tel: , [place]. tel: [phone] Ben Corbett Hypothyroidism, Apr- Cordell Referring In Womens unspecified 6 [place]. 700 Provider: Health PA, 6 Medical Tommy Irisdebra PO Box Center L, [address], , Jori 609, [place], [facility], [place], [place], [place], [address]. , [place], tel: [phone] tel: , [place]. tel: [phone] Ben Corbett Hypothyroidism, Feb-0 Cordell Referring In Womens unspecifiedPostpa 1-201 [place]. 700 Provider: Health PA, rtum Follow-Up, 5 Medical Tommy Irisdebra PO Box Routine Center L, [address], , Jori 609, [place], [facility], [place], [place], [place], [address]. , [place], tel: [phone] tel: , [place]. tel: [phone] Ben Corbett Oct-2 Cordell Referring In Womens Follow-Up, 0-201 [place]. 700 Provider: Health PA, Routine 5 [facility] PO Box Center L, [address], , Jori 609, [place], 120, [place], [place], [place], [address]. [id number], [place], tel: [place] [phone] tel: , [place]. tel: [phone] Ben Ricketts Oct-0 Cordell Referring In Womens Dysfunction w/ 1-201 [place]. 700 Provider: Health JUDIE, PregnancyRoutine [address] [facility] Care, Center L, [address], [id number] , Jori 609, [place], weeks gestation 120, [place], [place], [place], [address]. [id number], [place], tel: [place] [phone] tel: , [place]. tel: [phone] Ben Corbett Sep- [place] Referring In Womens 7-201 [place]. Provider: Health JUDIE, [address] [place] [address] Cordell R, 1522, Center [address] Dr Chang, [facility], 120, [place] [id number], [place], [facility] 120, Aric IBARRA, tel:[phone] [place], , [place]. [id number]. tel: tel: [phone] Ben Corbett Sep-1 Cordell Referring In Womens 6-201 [place]. 700 Provider: Health JUDIE, 5 [facility] Cordell R, 1522, , Jori 700 [place], 120, Medical Aric IBARRA, [place] [id number], [place], [facility] 120, [place] [id number] Aric, tel: , . [place], tel: [phone]. [id number] tel:[phone] Ben Corbett Jesus-3 Cordell Referring In Womens 0-201 [place]. 700 Provider: Gustavo DIMAS, 3 [facility] Box Center L, [address], , Jori 609, [place], 120, [place], [place], [place], [address]. , [place], tel: [phone] tel: , . tel: [phone] Associates Aric Mar-0 Cordell Referring In Womens 3-201 [place]. 700 Provider: Gustavo DIMAS, Zackery Medical Tommy Ruiz PO Box Center L, [address], , Jori 609, [place], 120, [place], [place], [place], [address]. [id number], [place], tel: [phone] tel: , . tel: [phone] Family History Family Member Diagnosis Age At [...] Record Payers Payer name Insurance type Covered constitution party ID Authorization(s) [facility] [id number] [facility] [id number] [facility] [id number] [facility] [id number] [facility] [id number] [facility] [id number] Social History Type Description Quantity Date Captured Alcohol Use Details No Caffeine Use Details Unknown Tobacco Use Status Unknown Smoking Status Never smoker Vital Signs Date / Height Weight BMI Pulse Blood Temperature Respiratory Body Head BMI Time: Rate Pressure Rate Surface Circumference percentile Area 287.00 44.9 138/78 -2018 lbs 5 mm[Hg] 8:43 kg/m AM eter (2) Chief Complaint And Reason For Visit Unknown Chief Complaint And Reason For Visit Reason For Referral Reason For Referral Unknown Plan Of Care Date Type Action Status Appointment Biju Pollard TWINS BOOKED Appointment Biju Pollard BOOKED Appointment Biju Pollard [place] R C/S, PPTL BOOKED Future Order: Radiology Order Ultrasound OB Follow-up ([id number]) Ordered Future Order: Radiology Order Ultrasound OB Follow-up ([id number]) Ordered Future Order: Radiology Order Complete OB Ultrasound > 14 Ordered Weeks ([id number]) Future Order: Lab Order Pap Smear With [...]
--- OUTSIDE RECORDS SUMMARY | 2017-07-24 18:22 | External Medical Summary | Continuity of Care Document ---
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) w/o 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 Follow-Up, Routine - Spotting complicating , third - trimester Twin , - dichorionic/diamniotic, third trimester Previous Low Transverse - 32 weeks gestation of - Twin , - [...] preg, third tri Twin , - dichorionic/diamniotic, third trimester Previous Low Transverse - Endo, nutritional and metab diseases - comp preg, third tri Type A blood, Rh negative - Twin , - dichorionic/diamniotic, third trimester 29 weeks gestation of - Thyroid Dysfunction w/ Routine Care, Multigravida 38 weeks gestation of - Active Procedures Procedure Date Ultrasnd preg uterus, flwup/repeat Ultrasnd preg uterus, flwup/repeat Apr-19-2018 Results Test Name Date and Time Measure Units Reference Range Abnormal Flag Comments Unknown Advance Directives Directive Yes / No Effective Date File Name Unknown Encounters Encounter Practice Location Reason(s) Diagnoses Date Provider Care Team Description For Visit Members Ben Corbett Twin , July-0 [place] Referring In Womens dichorionic/diamn 3-201 Jun. Provider: katrin Finley, third 8 700 El PO Box trimesterPrevious Medical Cordell Cornell, 1522, Low Transverse Center Saskia Downing, C-SectionEndo, [facility], [facility], nutritional and [facility] [id number], metab diseases 120, Jori 120, [place] comp preg, third Aric Corbett, tel: triType A blood, [place], [place] [address], [id number]. [place]. tel: tel: [phone] Ben Corbett Twin , Apr-2 Cordell Referring In Womens dichorionic/diamn El. 700 Provider: katrin Finley, third 8 Medical El PO Box [id number] weeks Center Cordell Cornell, 1522, gestation of Dr [facility] Saskia Mortensenta, 120, Medical [facility] [id number], [place], Jori 120, [place] [id number] Corb[place], tel: , [place]. [place], tel:[phone]. [id number] tel:[phone] Ben Corbett Spotting Apr-1 Cordell Referring In Womens Ultrasound complicating [place]. 700 Provider: Gustavo DIMAS, , third 8 Medical El PO Box trimesterTwin Center Cordell Cornell 1522, , Jori Lopez, dichorionic/diamn 120, Medical [place], iotic, third [facility] [id number], trimesterPrevious [place], Jori 120, [place] Low Transverse [id number] Aric, tel: C-Mxaqzwj83 weeks , [place]. [place], gestation of tel:[phone]. [id number] tel:[phone] Ben Corbett Twin , Apr-1 Cordell Referring In Womens dichorionic/diamn [place]. 700 Provider: katrin Finley, third 8 Medical El PO Box trimesterPrevious Center Cordell R, 1522, Low Transverse [place] Lopez, C-SectionAnemia 120, Medical [place], complicating [facility] [id number], , third [place], Jori 120, [place] trimesterEndo, [id number] Aric, tel: nutritional and , [place]. [place], metab diseases tel: [phone]. comp preg, third [id number] tel: [phone] Ben Corbett Twin , Apr- Cordell Referring In Womens dichorionic/diamn 2-201 El. 700 Provider: Health katrin DIMAS, third 8 Medical El PO Box [id number] weeks Center Cordell R, 1522, gestation of [place]ori Lopez, 120, Medical [facility] [id number], [place], [facility] 120, [place] [id number] Aric, tel: , [place]. [place], tel: [phone]. [id number] tel:[phone] Ben Corbett Twin , Mar-2 Cordell Referring In Womens dichorionic/diamn 8-201 [place]. 700 Provider: Gustavo DIMAS iotic, third 8 Medical El PO Box weeks Center Cordell R, 1522, gestation of Jori Lopez, 120, Medical WYAric, [place] [id number], [place], [facility] 120, [place] [id number] Aric, tel: , [place]. [place], tel: [phone]. [id number] tel:[phone] Ben Corbett Mar-1 [place] Referring In Womens 6-201 [place]. Provider: Health PA, 8 700 El PO Box Medical Cordell R, 1522, Center Saskia [address]ing [facility] [place], 120, [place] [id number], Aric, [facility] 120, [place] Aric IBARRA, tel:[phone] [place], , [place]. [id number]. tel: tel: [phone] Ben Corbett Twin , Mar-1 Cordell Referring In Womens dichorionic/diamn 4-201 [place]. 700 Provider: Health JUDIE iotic, second 8 Medical El PO Box [id number] weeks Center Cordell R, 1522, gestation of Jori Lopez, 120, Medical Aric IBARRA, [place] [id number], [place], Jori 120, [place] [id number] Aric, tel: , [place]. [place], tel:[phone]. [id number] tel:[phone] Ben Corbett Spotting Mar-1 Cordell Referring In Womens Ultrasound complicating 4-201 El. 700 Provider: Health PA, , second 8 Medical El PO Box trimesterTwin Center Cordell R, 1522, , Jori Lopez, dichorionic/diamn 120, Medical STACEY, iotic, [facility] [id number], trimesterPrevious [place], Jori 120, [place] Low Transverse [id number] Aric, tel: C-Ctfkicq10 weeks , [place]. [place], gestation of tel:[phone]. [id number] tel:[phone] Ben Corbett Twin , Feb-2 Cordell Referring In Womens dichorionic/diamn 7-201 [place]. 700 Provider: Health JUDIE iotic, second 8 Medical [facility] Box trimesterEndo, Center Cordell R, 1522, nutritional and [place] Lopez, metab diseases 120, Medical STACEY, comp preg, [facility] [id number], tri25 weeks [place], Jori 120, [place] gestation of [id number] Aric, tel: pregnancyType A , [place]. [place], blood, Rh tel:[phone]. negative [id number] tel:[phone] Ben Corbett Twin , Feb-2 Cordell Referring In Womens dichorionic/diamn 3-201 [place]. 700 Provider: Health JUDIE iotic, second 8 Medical El PO Box [id number] weeks Center Cordell R, 1522, gestation of Jori Lopez, 120, Medical Aric [facility] [id number], [place], Jori 120, [place] [id number] Aric, tel: , [place]. [place], tel:[phone]. [id number] tel:[phone] Ben Corbett Twin , Apr-0 Cordell Referring In Womens dichorionic/diamn 8-201 El. 700 Provider: katrin Finley, second 8 Medical El PO Box trimesterPrevious Center Cordell Cornell, 1522, Low Transverse Dr Jori 700 Chang C-SectionEndo, 120, Medical STACEY, nutritional and [facility] [id number], metab diseases [place], Jori 120, [place] comp preg, second [id number] Aric, tel: tri22 weeks , [place]. [place], gestation of tel: [phone]. [id number] tel:[phone] Ben Corbett Oth Mar- Cordell Referring In Womens related El. 700 Provider: Gustavo DIMAS conditions, 8 Medical El PO Box second trimester Center Cordell Cornell, 1522, oJri Lopez, 120, Medical STACEY, [facility] [id number], [place], Jori 120, [place] [id number] Aric, tel: , [place]. [place], tel: [phone]. [id number] tel:[phone] Ben Corbett Twin , Cordell Referring In Womens dichorionic/diamn 8- [place]. 700 Provider: katrin Finley, second 8 Medical El PO Box [id number] weeks Center Cordell Cornell, 1522, gestation of Jori Lopez, 120, Medical STACEY, [facility] [id number], [place], Jori 120, [place] [id number] Aric, tel: , [place]. [place], tel:[phone]. [id number] tel:[phone] Ben Corbett Twin , Cordell Referring In Womens Ultrasound dichorionic/diamn 8- [place]. 700 Provider: katrin Finley, second 8 Medical El PO Box trimesterPrevious Center Cordell R, 1522, Low Transverse Dr Jori Rosendo Agustin-SectionEndo, 120, Medical STACEY, nutritional and [facility] [id number], metab diseases [place], Jori 120, [place] comp preg, second [id number] Aric, tel: tri19 weeks , [place]. [place], gestation of tel: [phone]. [id number] tel:[phone] Associates Aric Twin , Jesus-0 Cordell Referring In Womens dichorionic/diamn 3-201 El. 700 Provider: Health PA, iotic, second 8 Medical El PO Box [id number] weeks Center Cordell Cornell, 1522, gestation of Jori Lopez, 120, Medical Aric IBARRA, [place] [id number], [place], Jori 120, [place] [id number] Arci, tel: , [place]. [place], tel:[phone]. [id number] tel:[phone] Associates Aric Spotting Dec-2 Cordell Referring In Womens complicating 0-201 El. 700 Provider: Health PA, , second 7 Medical El PO Box trimesterEndo, Center Cordell Cornell, 1522, nutritional and Jori Lopez, metab diseases 120, Medical STACEY, comp preg, second [facility] [id number], tri15 weeks [place], [facility] 120, [place] gestation of [id number] Aric, tel: , [place]. [place], tel: [phone]. [id number] tel:[phone] Associates Aric Spotting Dec-1 Cordell Referring In Womens complicating 3-201 El. 700 Provider: Health PA, , second 7 Medical El PO Box trimesterTwin Center Cordell R, 1522, , Jori Lopez, dichorionic/diamn 120, Medical STACEY, iotic, second [facility] [id number], [id number] weeks [place], [facility] 120, [place] gestation of [id number] Aric, tel: , [place]. [place], tel: [phone]. [id number] tel:[phone] Associates Aric Spotting Dec-0 Cordell Referring In Womens complicating 5-201 El. 700 Provider: Health PA, , first 7 Medical El PO Box [id number] weeks Center Cordell Cornell, 1522, gestation of Jori Lopez, 120, Medical Aric IBARRA, [place] [id number], [place], [facility] 120, [place] [id number] Aric, tel: , [place]. [place], tel:[phone]. [id number] tel:[phone] Ben Corbett Spotting Nov-3 Cordell Referring In Womens complicating 0-201 El. 700 Provider: Health JUDIE, , first 7 Medical [facility] Box [email or web address] weeks Center Cordell R, 1522, gestation of , [facility] 700 [place], 120, Medical STACEY, [facility] [id number], [place], Jori 120, [place] [id number] Aric, tel: , [place]. [place], tel:[phone]. [id number] tel:[phone] Ben Corbett Hemorrhage in Nov-2 [place] Referring In Womens early , 9-201 [place]. Provider: Health JUDIE, unspecifiedTwin 7 700 [facility] Box , Medical Cordell R, 1522, dichorionic/diamn [place] [address] [place], katrin [facility] , [facility], weeks 120, [place] [id number], gestation of Corbett, [facility] 120, [place] Aric IBARRA, tel:[phone] [place], , [place]. [id number]. tel: tel: [phone] Ben Corbett Supervision of Jan- Cordell Referring In Womens other high risk 5-201 [place]. 700 Provider: Health JUDIE, pregnancies, 7 Medical [facility] Box first [place] Cordell R, 1522, trimesterTbernardo Lopez, [place] [address] [place], , 120, Medical [place], dichorionic/diamn [facility] [id number], iotblake, first [place], [facility] 120, [place] trimesterEncntr [id number] Aric, tel: screen for , [place]. [place], infections w sexl tel:[phone]. 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 700 Provider: Gustavo DIMAS, (routine) w/o abn 6 Medical Tommy Wedel PO Box findings Center L, [address], , Jori Freddie, [place], 120, [place], [place], [place], [address]. , [place], tel: [phone] tel: , [place]. tel: [phone] Associates Aric Hypothyroidism, b- Cordell Referring In Womens unspecified [place]. 700 Provider: Gustavo DIMAS, 6 Medical Tommy Wedel PO Box Center L, [address], , Jori Frazier, [place], 120, [place], [place], [address]. , [place], tel: [place] [phone] tel: , [place]. tel: [phone] Associates Aric Hypothyroidism, Dec-0 Cordell Referring In Womens unspecifiedPostpa [place]. 700 Provider: Gustavo DIMAS, rtum Follow-Up, 5 Medical Tommy Wedel PO Box Routine Center L, [address], Jori Lopez, [place], 120, [place], [place], [place], [address]. , [place], tel: [phone] tel: , [place]. tel: [phone] Ben Corbett Oct-2 Cordell Referring In Womens Follow-Up, [place]. 700 Provider: Gustavo DIMAS, Routine 5 Medical Tommy Wedel PO Box Center L, [address], Dr Jori Freddie, [place], 120, [place], [place], [place], [address]. , [place], tel: [place] [phone] tel: , [place]. tel: [phone] Associates Aric Thyroid Oct-0 Cordell Referring In Womens Dysfunction w/ - [place]. 700 Provider: Gustavo DIMAS, PregnancyRoutine 5 Medical Tommy Wedel PO Box Care, Center L, [address], [id number] , Jori 60Eunice, [place], weeks gestation 120, [place], [place], [place], [address]. , [place], tel: [place] [phone] tel: , [place]. tel: [phone] Associates Aric Sep-1 Holdeman Referring In Womens 7-201 [place]. Provider: Health JUDIE, [address] [place] [address] Cordell Cornell, 1522, Center [facility] Dr Chang, [facility], 120, [place] [id number], [facility] 120, [facility], Corbett, tel: [phone] [place], , [place]. [id number]. tel: tel: [phone] Associates Aric Mayo-1 Cordell Referring In Womens 6-201 [place]. 700 Provider: Health PA, 5 [facility] Cordell Cornell, 1522, , [address], 120, [facility] [id number], [place], [facility] 120, [place] [id number] Aric, tel: , [place]. [place], tel: [phone]. [id number] tel:[phone] Ben Corbett Jesus-3 Cordell Referring In Womens 0-201 [place]. 700 Provider: Health PA, 3 [facility], [address], , Jori 60Eunice, [place], 120, [place], [place], [place], [address]. , [place], tel: [phone] tel: , [place]. tel: [phone] Associates Aric Jesus-0 Cordell Referring In Womens 3-201 [place]. 700 Provider: Health PA, 2 [facility] PO Box Center , [address], , Jori 609, [place], 120, [place], [place], [place], [address]. , [place], tel: [phone] tel: , [place]. tel: [phone] Family History Family Member Diagnosis Age At [...] Insurance type Covered constitution party ID Authorization(s) [place] [id number] [place] [id number] [place] [id number] [place] [id number] [place] [id number] [place] [id number] Social History Type Description Quantity Date Captured Unknown Vital Signs Date / Height Weight BMI Pulse Blood Temperature Respiratory Body Head BMI Time: Rate Pressure Rate Surface Circumference percentile Area Unknown Chief Complaint And Reason For Visit Unknown Chief Complaint And Reason For Visit Reason For Referral Reason For Referral Unknown Plan Of Care Date Type Action Status Appointment Biju Polalrd TWINS BOOKED Appointment Biju Pollard BOOKED Appointment Biju Pollard [facility] R C/S, PPTL BOOKED Future Order: Radiology Order Ultrasound OB Follow-up ([id number]) Ordered Future Order: Radiology Order Ultrasound OB Follow-up ([id number]) Ordered Future Order: Radiology Order Complete OB Ultrasound > 14 Ordered Weeks ([id number]) Future Order: Lab Order Pap Smear With [...]
--- OUTSIDE RECORDS SUMMARY | 2017-07-24 18:22 | External Medical Summary | Continuity of Care Document ---
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) w/o 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 Follow-Up, Routine - Spotting complicating , - second trimester Endo, nutritional and metab diseases - comp preg, second tri 15 weeks gestation of - Supervision of other [...] second trimester 14 weeks gestation of - Twin , - dichorionic/diamniotic, second trimester 17 weeks gestation of - Thyroid Dysfunction w/ Routine Care, Multigravida 38 weeks gestation of - Active Procedures Procedure Date OB Visit No Charge OB Prepayment Agreement Results Test Name Date and Time Measure Units Reference Range Abnormal Flag Comments Unknown Advance Directives Directive Yes / No Effective Date File Name Unknown Encounters Encounter Practice Location Reason(s) Diagnoses Date Provider Care Team Description For Visit Members Ben Corbett Twin , Mar- Cordell Referring In Womens dichorionic/diamnio 3-[address] [facility] Provider: Health PA, tic, second 8 Medical El PO Box [id number] weeks [place] Cordell Cornell 1522, gestation of Jori Lopez, 120, Medical [place], [facility] [id number], [place], [facility] 120, [place] [id number] Corbett, tel: , . STACEY, 907897 tel: [phone]. [id number] tel:[phone] Associates Aric Spotting Dec-2 Cordell Referring In Womens complicating 0-201 [place]. 700 Provider: Health PA, , second 7 Medical El PO Box trimesterEndo, [place] Cordell Cornell, 1522, nutritional and Jori Lopez, metab diseases comp 120, Medical [place], preg, second tri15 [facility] [id number], weeks gestation of [place], Jori 120, [place] [id number] Aric, tel: , [place]. [place], tel: [phone]. [id number] tel:[phone] Associates Aric Spotting Dec-1 Cordell Referring In Womens complicating 3-201 [place]. 700 Provider: Gustavo DIMAS, , second 7 Medical El PO Box trimesterTwin Center Cordell R, 1522, , Jori Lopez, dichorionic/diamnio 120, Medical STACEY, tic, second [facility] [id number], [id number] weeks [place], Jori 120, [place] gestation of [id number] Aric, tel: , [place]. [place], tel: [phone]. 31157940 tel:[phone] Ben Corbett Spotting Dec-0 Cordell Referring In Womens complicating 5-201 El. 700 Provider: Gustavo DIMAS, , first 7 Medical El PO Box [id number] weeks Center Cordell R, 1522, gestation of Jori Lopez, 120, Medical Aric [facility] [id number], [place], Jori 120, [place] [id number] Aric, tel: , [place]. [place], tel: [phone]. [id number] tel:[phone] Ben Corbett Spotting Nov-3 Cordell Referring In Womens complicating 0-201 El. 700 Provider: Gustavo DIMAS, , first 7 Medical El PO Box [email or web address] weeks Center Cordell R, 1522, gestation of Jori Lopez, 120, Medical Aric [facility] [id number], [place], Jori 120, [place] [id number] Aric, tel: , [place]. [place], tel: [phone]. [id number] tel:[phone] Ben Corbett Hemorrhage in early Nov-2 [place] Referring In Womens , 9-201 [place]. Provider: Gustavo DIMAS, unspecifiedTwin 7 700 El PO Box , Medical Cordell R, 1522, dichorionic/diamnio Center Saskia Downing, [facility], first , [facility], weeks 120, [place] [id number], gestation of [place], [facility] 120, Aric IBARRA, tel: [phone] [place], , [place]. [id number]. tel: tel: [phone] Ben Corbett Supervision of Jan- Cordell Referring In Womens other high risk 5-201 [place]. 700 Provider: Health JUDIE, pregnancies, first 7 Medical [place] PO Box trimesterTwin Center Cordell R, 1522, , , Jori 700 [place], dichorionic/diamnio 120, Medical [place], [facility], first Corbett, [place] [id number], trimesterEncntr [place], [facility] 120, [place] screen for [id number] Aric, tel: infections w sexl , [place]. [place], mode of tel: [phone]. 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 700 Provider: Gustavo DIMAS, w/o 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 6 [facility] PO Box Center L, [address], Dr Jori 609, [place], [facility], [place], [place], [place], [address]. , [place], tel: [phone] tel: , [place]. tel: [phone] Ben Corbett Hypothyroidism, Apr- Cordell Referring In Womens unspecified 6-201 El. 700 Provider: Gustavo DIMAS, 6 [facility] PO Box Center L, [address], Dr Jori 60Eunice, [place], [facility], [place], [place], [place], [address]. , [place], tel: [place] [phone] tel: , [place]. tel: [phone] Ben Corbett Hypothyroidism, Dec-0 Cordell Referring In Womens unspecifiedPostpart 1-201 El. 700 Provider: Gustavo DIMAS, Follow-Up, 5 [facility] PO Box Routine Center L, [address], , Jori 609, [place], 120, [place], [place], [place], [address]. [id number], [place], tel:+ [place] [phone] tel: , [place]. tel: [phone] Ben Corbett Oct-2 Cordell Referring In Womens Follow-Up, Routine 0-201 [place]. 700 Provider: Gustavo DIMAS, [address] [place] [address] PO Box Center L, [address], , Jori 60Eunice, [place], 120, [place], [place], [place], [address]. [id number], [place], tel: [place] [phone] tel: , [place]. tel: [phone] Ben Corbett Thyroid Dysfunction Oct-0 Cordell Referring In Womens w/ PregnancyRoutine 1-201 [place]. 700 Provider: Gustavo DIMAS, [facility] [place], 5 [facility] PO Box [id number] Center L, [address], weeks gestation of Dr Jori 60Eunice, [place], 120, [place], [place], [place], [address]. [id number], [place], tel:+ [phone] tel: , [place]. tel: [phone] Ben Corbett Sep-1 [place] Referring In Womens 7-201 [place]. Provider: [facility] JUDIE, [address] [place] [address] Cordell R, 1522, Center [address] Dr Chang, [facility], 120, [place] [id number], Aric, [facility] 120, Aric IBARRA, tel: [phone] [place], , [place]. [id number]. tel: tel:+ [phone] Ben Corbett Mayo-1 Cordell Referring In Womens 6-201 [place]. 700 Provider: Gustavo DIMAS, [address] [place] [address] Cordell R, 1522, , [facility] 700 [place], 120, Medical Aric IBARRA, [place] [id number], [place], Jori 120, [place] [id number] Corb[place], tel: , [place]. [place], tel: [phone]. [id number] tel:[phone] Associates Aric Mar-3 Cordell Referring In Womens 0-201 [place]. 700 Provider: Health PA, [address] [facility] PO Box Center L, [address], , Jori 609, [place], 120, [place], [place], [place], [address]. , [place], tel: [phone] tel: , . tel: [phone] Associates Aric Mar-0 Cordell Referring In Womens 3-201 [place]. 700 Provider: Health PA, [address] [facility] PO Box Center L, [address], , Jori 609, [place], 120, [place], [place], [place], [address]. , [place], tel: [phone] tel: , . tel: [phone] Family History Family Member Diagnosis Age At [...] Record Payers Payer name Insurance type Covered democrat ID Authorization(s) [facility] [place] [id number] [facility] [place] [id number] [place] [id number] [place] [id number] Social History Type Description Quantity Date Captured Alcohol Use Details No Caffeine Use Details Unknown Tobacco Use Status Unknown Smoking Status Never smoker Vital Signs Date / Height Weight BMI Pulse Blood Temperature Respiratory Body Head BMI Time: Rate Pressure Rate Surface Circumference percentile Area 265.20 41.5 118/84 -2017 lbs 3 mm[Hg] 1:36 kg/m PM eter (2) Chief Complaint And Reason For Visit Unknown Chief Complaint And Reason For Visit Reason For Referral Reason For Referral Unknown Plan Of Care Date Type Action Status Appointment Dago Pollard BOOKED Appointment Biju Pollard BOOKED Future Order: Lab [...]
--- OUTSIDE RECORDS SUMMARY | 2017-07-24 18:22 | External Medical Summary | Continuity of Care Document ---
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 [place]ia Provider: katrin Finley, second 8 Monica Gallegos Box [id number] weeks [place] Cordell [place], 1522, gestation of Jori Lopez 700 [place], 120, Medical [place], Aric [place] [id number], STACEY, [facility] 120, [place] [id number] Aric, tel:[phone] , [place]. STACEY, [id number] tel: [phone]. [id number] tel:[phone] Associates Aric Twin , Jesus-1 Cordell Referring In Womens Ultrasound dichorionic/diamn 8-201 El. 700 Provider: katrin Finley, second 8 Medical El PO Box trimesterPrevious Center Cordell R, 1522, Low Transverse , Jori 700 [place], C-SectionEndo, 120, Medical STACEY, nutritional and Aric [place] [id number], metab diseases [place], Jori 120, [place] comp preg, second [id number] Aric, tel: tri19 weeks , [place]. [place], gestation of tel: [phone]. [id number] tel:[phone] Ben [place] Twin , Jesus-0 Cordell Referring In Womens dichorionic/diamn 3-201 El. 700 Provider: katrin Finley, second 8 Medical El PO Box weeks Center Cordell Cornell, 1522, gestation of Jori Lopez, 120, Medical Aric [facility] [id number], [place], Jori 120, [place] [id number] [place], tel: , [place]. [place], tel: [phone]. [id number] tel:[phone] Ben [place] Spotting Dec-2 Cordell Referring In Womens complicating 0-201 El. 700 Provider: Gustavo DIMAS, , second 7 Medical El PO Box trimesterEndo, Center Cord[place] Cornell, 1522, nutritional and , Jori Saskia Downing, metab diseases 120, Medical [place], comp preg, second Aric [place] [id number], tri15 weeks STACEY, Jori 120, [place] gestation of [id number] Aric, tel: , [place]. [place], tel: [phone]. [id number] tel:[phone] Associates Aric Spotting Dec-1 Cordell Referring In Womens complicating 3-201 El. 700 Provider: Health JUDIE, , second 7 Medical El PO Box trimesterTwin Center Cordell Cornell, 1522, , Dr Jori Saskia [place], dichorionic/diamn 120, Medical STACEY, iotic, second Aric [place] [id number], [id number] weeks [place], Jori 120, [place] gestation of [id number] Aric, tel: , [place]. [place], tel: [phone]. [id number] tel:[phone] Ben [place] Spotting Dec-0 Cordell Referring In Womens complicating 5-201 El. 700 Provider: Health JUDIE, , first 7 Medical El PO Box [email or web address] weeks Center Cordell Cornell, 1522, gestation of Jori Lopez, 120, Medical Aric [facility] [id number], [place], [facility] 120, [place] [id number] Aric, tel: , [place]. [place], tel: [phone]. [id number] tel:[phone] Ben [place] Spotting Cordell Referring In Womens complicating 0-201 El. 700 Provider: Gustavo DIMAS, , first 7 Medical El PO Box [email or web address] weeks [place] Cordell Cornell, 1522, gestation of Jori Lopez, 120, Medical Aric [facility] [id number], [place], [facility] 120, [place] [id number] Aric, tel: , [place]. [place], tel: [phone]. [id number] tel:[phone] Ben [place] Hemorrhage in [place] Referring In Womens early , 9-201 [place]. Provider: Health JUDIE, unspecifiedTwin 7 700 El PO Box , Medical Cordell R, 1522, dichorionic/diamn [place] katrin Agustin first Dr [facility], [id number] weeks 120, [place] [id number], gestation of Aric, [facility] 120, [place] Aric IBARRA, tel: [phone] [place], , [place]. [id number]. tel: tel: [phone] Ben [place] Supervision of Cordell Referring In Womens other high risk 5-201 El. 700 Provider: Health JUDIE, pregnancies, 7 Medical El PO Box first [place] Cordell Cornell, 1522, trimesterTwin Dr Jori Saskia Downing, , 120, Medical [place], dichorionic/diamn [address] [place] [address] [id number], iotic, first [place], Jori 120, [place] trimesterEncntr [id number] Aric, tel: screen for , [place]. [place], infections w sexl tel: [phone]. 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 700 Provider: Health JUDIE, (routine) w/o abn 6 Medical Tommy Wedel PO Box findings Center L, [address], , Jori 609, [place], 120, [place], [place], [place], [address]. , [place], tel: [place] [phone] tel: , [place]. tel: [phone] Associates Aric Hypothyroidism, Apr- Cordell Referring In Womens unspecified 6-201 [place]. 700 Provider: Health PA, 6 Medical Tommy Wedel PO Box Center L, [address], , Jori 609, [place], 120, [place], [place], [place], [address]. , [place], tel: [place] [phone] tel: , [place]. tel: [phone] Associates Aric Hypothyroidism, Feb- Cordell Referring In Womens unspecifiedPostpa 1-201 El. 700 Provider: Health JUDIE, rtum Follow-Up, 5 Medical Tommy Wedel PO Box Routine Center L, [address], , Jori 609, [place], 120, [place], [place], [place], [address]. , [place], tel: [place] [phone] tel: , [place]. tel: [phone] Ben [place] Oct-2 Cordell Referring In Womens Follow-Up, 0-201 El. 700 Provider: Health JUDIE, Routine 5 Medical Tommy Wedel PO Box Center L, [address], , Jori 609, [place], 120, [place], [place], [place], [address]. [id number], [place], tel: [place] [phone] tel: , [place]. tel: [phone] Ben Ricketts Oct-0 Cordell Referring In Womens Dysfunction w/ 1-201 [place]. 700 Provider: Health [facility], PregnancyRoutine 5 [facility], Center L, [address], [id number] , Jori 609, [place], weeks gestation 120, [place], [place], [place], [address]. , [place], tel: [place] [phone] tel: , [place]. tel: [phone] Ben [place] Sep-1 [place] Referring In Womens 7-201 [place]. Provider: Health JUDIE, [address] [place] [address] Cordell R, 1522, Center [facility] Dr Chang, [facility], 120, [place] [id number], [facility] 120, [facility], [place], tel: [phone] [place], , [place]. [id number]. tel: tel: [phone] Ben [place] Sep-1 Cordell Referring In Womens 6-201 [place]. 700 Provider: Health JUDIE, 5 [facility] Cordell R, 1522, , Jori 700 [place], 120, Medical Aric IBARRA, [place] [id number], [place], [facility] 120, [place] [id number] Aric, tel: , . [place], tel: [phone]. [id number] tel:[phone] Ben [place] Jesus-3 Cordell Referring In Womens 0-201 [place]. 700 Provider: Health PA, 3 [facility] L, [address], , Jori 609, [place], 120, [place], [place], [place], [address]. [id number], [place], tel: [phone] tel: , [place]. tel:[phone] Associates Aric Cordell Referring In Womens 3-201 El. 700 Provider: Gustavo DIMAS, Zackery Medical Tommy Ruiz PO Box Center L, [address], , Jori 609, [place], 120, [place], [place], [address]. [id number], [place], tel: [phone] tel: , . 887949 tel: [phone] Family History Family Member Diagnosis Age At [...] Insurance type Covered alliance party ID Authorization(s) [facility] [id number] [facility] [id number] [facility] [id number] [facility] [id number] Social History Type Description Quantity Date Captured Alcohol Use Details No Caffeine Use Details Unknown Tobacco Use Status Unknown Smoking Status Never smoker Vital Signs Date / Height Weight BMI Pulse Blood Temperature Respiratory Body Head BMI Time: Rate Pressure Rate Surface Circumference percentile Area 268.40 42.0 /2018 lbs 3 mm[Hg] 1:38 kg/m PM eter (2) Chief Complaint And Reason For Visit Unknown Chief Complaint And Reason For Visit Reason For Referral Reason For Referral Unknown Plan Of Care Date Type Action Status Appointment Biju Pollard BOOKED Future Order: Radiology Order Complete OB Ultrasound > 14 Ordered Weeks (22524) Nov-10-2016 Future Order: Lab Order Pap Smear With [...]
--- OUTSIDE RECORDS SUMMARY | 2017-07-24 18:23 | External Medical Summary | Continuity of Care Document ---
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 700 Provider: Gustavo DIMAS, , second 7 Medical El BONNER Box [facility] Cordell Cornell, 152, nutritional and Dr Jori 700 [place], metab diseases comp 120, Medical [place], preg, second tri[address] [place] [address] [id number], weeks gestation of STACEY [facility] 120, [place] [id number] Aric, tel: , [place]. [place], tel: [phone]. [id number] tel:[phone] Ben Jennings Feb- Cordell Referring In Womens complicating 3-201 El. 700 Provider: Gustavo DIMAS, , second 7 Medical El Box trimesterTwin [place] Cordell Cornell, 1522, , Dr Jori 700 [place], dichorionic/diamnio 120, Medical [place], tic, second Emily [place] Dr [id number], [id number] weeks STACEY Jori 120, [place] gestation of [id number] Aric, tel: , [place]. [place], tel: [phone]. [id number] tel:[phone] Ben [place] Spotting Dec-0 Cordell Referring In Womens complicating 5-201 El. 700 Provider: Gustavo DIMAS, , first 7 Medical El PO Box [email or web address] weeks Center Cordell R, 1522, gestation of Jori Lopez 700 [place], 120, Medical Aric IBARRA, [place] [id number], [place], [facility] 120, [place] [id number] Aric, tel: , [place]. [place], tel: [phone]. [id number] tel:[phone] Ben [place] Spotting Nov-3 Cordell Referring In Womens complicating 0-201 El. 700 Provider: Gustavo DIMAS, , first 7 Medical El PO Box weeks Center Cordell R, 1522, gestation of Jori Lopez, 120, Medical Aric [facility] [id number], [place], [facility] 120, [place] [id number] Aric, tel: , [place]. [place], tel: [phone]. [id number] tel:[phone] Ben [place] Hemorrhage in early Jan- [place] Referring In Womens , 9-201 [place]. Provider: Gustavo DIMAS, unspecifiedTwin 7 700 El PO Box , Medical Cordell R, 1522, dichorionic/diamnio Center 700 tay Downing, first Lopez [facility] Monica IBARRA, weeks 120, [place] [id number], gestation of Aric [facility] 120, [place] Aric IBARRA, tel: [phone] [place], , [place]. [id number]. tel: tel: [phone] Ben [place] Supervision of Cordell Referring In Womens other high risk 5-201 El. 700 Provider: Gustavo DIMAS, pregnancies, first 7 Medical El PO Box trimesterTwin Center Cordell R, 1522, , Jori Lopez, dichorionic/diamnio 120, Medical tay IBARRA, Emily [address] [id number], trimesterEncntr STACEY, Jori 120, [place] screen for [id number] Aric, tel: infections w sexl , [place]. [place], mode of tel: [phone]. 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 700 Provider: Gustavo DIMAS, w/o 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 6 Medical Tommy [facility] PO Box Center L, [address], , Jori 609, [place], 120, [place], [place], [place], [address]. , [place], tel: [phone] tel: , [place]. tel: [phone] Associates Aric Hypothyroidism, Apr- Cordell Referring In Womens unspecified 6-201 El. 700 Provider: Gustavo DIMAS, 6 Medical Tommy [facility] PO Box Center L, [address], , Jori 609, [place], 120, [place], [place], [place], [address]. , [place], tel: [phone] tel: , [place]. tel: [phone] Associates Aric Hypothyroidism, Dec-0 Cordell Referring In Womens unspecifiedPostpart 1-201 El. 700 Provider: Gustavo DIMAS, um Follow-Up, 5 Medical Tommy [facility] PO Box Routine Center L, [address], , Jori 609, [place], 120, [place], [place], [place], [address]. , [place], tel: [place] [phone] tel: , [place]. tel: [phone] Ben [place] Oct-2 Cordell Referring In Womens Follow-Up, Routine 0-201 El. 700 Provider: Gustavo DIMAS, 5 [facility] PO Box Center L, [address], , Jori 609, [place], 120, [place], [place], [place], [address]. , [place], tel: [place] [phone] tel: , [place]. tel: [phone] Ben [place] Thyroid Dysfunction Oct-0 Cordell Referring In Womens w/ PregnancyRoutine 1-201 [place]. 700 Provider: Health JUDIE, Care, 5 [facility] Box [id number] Center L, [address], weeks gestation of , Jori 609, [place], 120, [place], [place], [place], [address]. [id number], [place], tel: [place] [phone] tel: , [place]. tel: [phone] Ben [place] Sep-1 [place] Referring In Womens 7-201 [place]. Provider: Gustavo DIMAS, [address] [place] [address] R, 1522, Center [address] Dr Chang, [facility], 120, [place] [id number], [place], [facility] 120, [facility], tel: [phone] [place], , [place]. [id number]. tel: tel: [phone] Ben [place] Sep-1 Cordell Referring In Womens 6-201 [place]. 700 Provider: Health JUDIE, 5 [facility] Cordell R, 1522, , Jori 700 [place], 120, Medical STACEY, Aric, [place] [id number], [place], [facility] 120, [place] [id number] Aric, tel: , . [place], tel: [phone]. [id number] tel:[phone] Ben [place] Jesus-3 Cordell Referring In Womens 0-201 [place]. 700 Provider: Health JUDIE, 3 [facility] Center L, [address], , Jori 60Eunice, [place], 120, [place], [place], [place], [address]. , [place], tel: [place] [phone] tel: , [place]. tel: [phone] Ben [place] Jesus-0 Cordell Referring In Womens 3-201 [place]. 700 Provider: Gustavo DIMAS, 2 Medical Tommy Ruiz PO Box Center L, [address], Dr, Jori 609, [place], 120, STACEY [place], [place], [address]. [id number], [place], tel: [phone] tel: , [place]. [address]997 tel: [phone] Family History Family Member Diagnosis Age At [...] Insurance type Covered constitution party ID Authorization(s) [facility] [id number] [facility] [id number] [facility] [id number] [facility] [id number] Social History Type Description Quantity Date Captured Alcohol Use Details No Caffeine Use Details Unknown Tobacco Use Status Unknown Smoking Status Never smoker Vital Signs Date / Height Weight BMI Pulse Blood Temperature Respiratory Body Head BMI Time: Rate Pressure Rate Surface Circumference percentile Area 260.40 40.7 128/78 2017 lbs 8 mm[Hg] 8:34 kg/m AM eter (2) Chief Complaint And [...]
--- OUTSIDE RECORDS SUMMARY | 2017-07-24 18:23 | External Medical Summary | Continuity of Care Document ---
:1985 Author Organization [facility] Address [address] [place], [place] [id number] Phone Care Team Providers Name Role Phone Slava Cullen MD Unavailable Unavailable Allergies, Adverse Reactions, Alerts Substance Reaction Severity Status ciprofloxacin Hives & Nausea Unknown Active CIPROFLOXACIN HCL Hives & Nausea Unknown Active Medications Medication Instructions Dosage Effective Dates Status Comments (start - stop) Synthroid 75 mcg take 1 tablet by 75 MCG - Active tablet oral route every day Keflex 500 mg take 1 capsule by 500 MG - Active capsule ORAL route 3 times every day MICRhoGAM - - Active Ultra-Filtered PLUS 250 unit (50 mcg) intramuscular syringe 27 mg-0.8 take 1 tablet by Not Available - Active mg tablet oral route every day Problems Condition Effective Dates (start - stop) 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 Follow-Up, Routine - Twin , - dichorionic/diamniotic, second trimester Previous Low Transverse - Endo, nutritional and metab diseases - comp preg, second tri 19 weeks gestation of - Hemorrhage in early , - unspecified Twin , - dichorionic/diamniotic, first trimester 12 weeks gestation of - Oth related conditions, - second trimester Hypothyroidism, unspecified Follow-Up, Routine Hypothyroidism, unspecified Supervision of other high risk - pregnancies, first trimester Twin , - dichorionic/diamniotic, first trimester Encntr screen for infections w sexl - mode of transmiss Encounter for screening for oth - infec/parastc diseases Encounter for screening of - mother 10 weeks gestation of - Spotting complicating , [...] gestation of - Active Procedures Procedure Date Ultrasound exam of preg uterus, complete Ultrasound exam of preg uterus, complete, Each Addtl Gestation Results Test Name Date and Time Measure Units Reference Range Abnormal Flag Comments Unknown Advance Directives Directive Yes / No Effective Date File Name Unknown Encounters Encounter Practice Location Reason(s) Diagnoses Date Provider Care Team Description For Visit Members Ben Corbett Cordell In Womens 1-[address], [address] [place], [place] [address], , Jori Downing, [facility], [place], [place], [id number], [place], [id number] tel: , [place]. tel: [phone] Associates Aric Oth Jesus-2 Cordell Referring In Womens related 4-201 [facility]. 700 Provider: Health PA, conditions, 8 Medical El PO Box second trimester Center Cordell R, 1522, Jori Lopez, 120, Medical STACEY, Aric, [place] [id number], [place], Jori 120, [place] [id number] Aric, tel: , [place]. [place], tel: [phone]. [id number] tel:[phone] Associates [facility] Twin , Jesus-1 Cordell Referring In Womens dichorionic/diamn 8-201 [facility]. 700 Provider: Health JUDIE iotic, second 8 Medical El PO Box [email or web address] weeks Center Cordell R, 1522, gestation of Jori Lopez, 120, Medical Aric IBARRA, [place] [id number], [place], Jori 120, [place] [id number] Aric, tel: , [place]. [place], tel: [phone]. [id number] tel:[phone] Associates Aric Twin , Jesus-1 Cordell Referring In Womens Ultrasound dichorionic/diamn 8-201 [facility]. 700 Provider: Health JUDIE iotic, second 8 Medical El PO Box trimesterPrevious Center Cordell R, 1522, Low Transverse Jori Lopez, C-SectionEndo, 120, Medical STACEY, [facility] [id number], metab diseases [place], Jori 120, [place] comp preg, second [id number] Aric, tel: tri19 weeks , [place]. [place], gestation of tel: [phone]. [id number] tel:[phone] Ben Corb[place] Twin , Jesus-0 Cordell Referring In Womens dichorionic/diamn 3-201 [facility]. 700 Provider: Health JUDIE iotic, second 8 Medical El PO Box [email or web address] weeks Center Cordell Cornell, 1522, gestation of Jori Lopez, 120, Medical Aric BIARRA, [place] [id number], [place], Jori 120, [place] [id number] Aric, tel: , [place]. [place], tel: [phone]. [id number] tel:[phone] Associates Aric Spotting Dec-2 Cordell Referring In Womens complicating 0-201 El. 700 Provider: Health JUDIE, , second 7 Medical El PO Box trimesterEndo, Center Cordell Cornell, 1522, nutritional and Jori Lopez [place], metab diseases 120, Medical STACEY, comp preg, [facility] [id number], tri15 weeks [place], Jori 120, [place] gestation of [id number] Aric, tel: , [place]. [place] tel: [phone]. [id number] tel:[phone] Associates Aric Spotting Dec-1 Cordell Referring In Womens complicating 3-201 El. 700 Provider: Health JUDIE, , second 7 Medical El PO Box trimesterTwin Center Cordell Cornell, 1522, , Jori Lopez, dichorionic/diamn 120, Medical STACEY, iotic, [facility] [id number], [email or web address] weeks [place], Jori 120, [place] gestation of [id number] Aric, tel: , [place]. [place] tel: [phone]. [id number] tel:[phone] Ben Corbett Spotting Dec-0 Cordell Referring In Womens complicating 5-201 El. 700 Provider: Health JUDIE, , first 7 Medical El PO Box [email or web address] weeks Center Cordell Cornell, 1522, gestation of Jori Lopez, 120, Medical [facility] [id number], [place], Jori 120, [place] [id number] Aric, tel: , [place]. [place], tel: [phone]. [id number] tel:[phone] Associates Aric Spotting Nov-3 Cordell Referring In Womens complicating 0-201 El. 700 Provider: Health JUDIE, , first 7 Medical El PO Box weeks Center Cordell Cornell, 1522, gestation of Jori Lopez, 120, Medical Airc IBARRA [place] [id number], [place], Jori 120, [place] [id number] Aric, tel: , [place]. [place], tel: [phone]. [id number] tel:[phone] Ben Corbett Hemorrhage in Jan- Hutchinson Referring In Womens early , 9-201 Lindsay. Provider: Gustavo DIMAS, unspecifiedTwin 7 700 [facility] PO Box , Medical Cordell R, 1522, dichorionic/diamn Center 700 [place], iotblake, [facility] , [facility], [id number] weeks 120, [place] [id number], gestation of [place], Jori 120, [place], [place], tel:[phone] [place], , [place]. [id number]. tel: tel: [phone] Ben Corbett Supervision of Cordell Referring In Womens other high risk - [facility]. 700 Provider: Gustavo DIMAS, pregnancies, 7 Medical [facility] Box first Center Cordell R, 1522, trimesterTwin , Jori 700 [place], , 120, Medical [place], dichorionic/diamn [facility] [id number], iot, [facility], Jori 120, [place] trimesterEncntr [id number] Aric, tel: screen for , [place]. [place], infections w sexl tel: [phone]. 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 700 Provider: Health JUDIE, (routine) w/o abn 6 Medical Tommy Ruiz PO Box findings Center L, [address], Dr, Jori 609, [place], 120, [place], [place], STACEY [place], [address]. [id number], [place], tel: [place] [phone] tel: , [place]. tel: [phone] Ben Corb[place] Hypothyroidism, Apr- Cordell Referring In Womens unspecified 6-201 [facility]. 700 Provider: Health JUDIE, 6 Medical Tommy [facility] PO Box Center L, [address], , Jori 609, [place], 120, [place], [place], [place], [address]. , [place], tel: [place] [phone] tel: , [place]. tel: [phone] Associates Aric Hypothyroidism, Dec-0 Cordell Referring In Womens unspecifiedPostpa 1-201 El. 700 Provider: Gustavo DIMAS, rtum Follow-Up, 5 Medical [facility] PO Box Routine Center L, [address], , Jori 60Eunice, [place], 120, [place], [place], [place], [address]. , [place], tel: [phone] tel: , [place]. tel: [phone] Ben Corbett Oct-2 Cordell Referring In Womens Follow-Up, 0-201 El. 700 Provider: Gustavo DIMAS, Routine 5 Medical Tommy [facility] PO Box Center L, [address], , Jori 60Eunice, [place], 120, [place], [place], [place], [address]. , [place], tel: [phone] tel: , [place]. tel: [phone] Ben Corbett Thyroid Oct-0 Cordell Referring In Womens Dysfunction w/ 1-201 El. 700 Provider: Gustavo DIMAS, PregnancyRoutine 5 Medical [facility] PO Box Care, Center L, [address], [id number] , Jori Freddie, [place], weeks gestation 120, [place], [place], [place], [address]. , [place], tel: [phone] tel: , [place]. tel: [phone] Ben Corbett Sep-1 Holdeman Referring In Womens 7-201 Christy. Provider: Gustavo DIMAS, 5 700 El PO Box Medical Cordell R, 1522, Center [address] Dr Chang, [facility] Medical [place], 120, Center [id number], Aric Jori 120, [facility], tel: [phone] [place], , [place]. [id number]. tel: tel: [phone] Ben Corbett Sep-1 Cordell Referring In Womens 6-201 [facility]. 700 Provider: Health JUDIE, 5 [facility] PO Box Center Cordell R, 1522, , Jori 700 [place], [facility], [facility], [facility] [id number], [place], [facility] 120, [id number] Aric, tel: , . [place], tel: [phone]. [id number] tel:[phone] Ben Corbett Mar-3 Cordell Referring In Womens 0-201 [facility]. 700 Provider: Health JUDIE, 3 [facility] PO Box Center L, [address], , Jori 609, [place], [facility], [place], [place], [place], [address]. , [place], tel: [phone] tel: , . tel: [phone] Ben Corbett Mar-0 Cordell Referring In Womens 3-201 [facility]. 700 Provider: Health JUDIE, [address] [facility] Box Center L, [address], , Jori 609, [place], [facility], [place], [place], [place], [address]. [id number], [place], tel: [phone] tel: , [place]. tel: [phone] Family History Family Member Diagnosis Age At [...] name Insurance type Covered democrat ID Authorization(s) [place] [id number] [place] [id number] [place] [id number] [place] [id number] Social History Type Description Quantity Date Captured [...] Complete OB Ultrasound > 14 Ordered Weeks (90632) Future Order: Lab Order Pap Smear With [...]
--- OUTSIDE RECORDS SUMMARY | 2017-07-24 18:23 | External Medical Summary | Continuity of Care Document ---
:1986 Author Organization [facility] Address [address] [place], [place] [id number] Phone Care Team Providers Name Role Phone [...] (start - stop) Clinical Status Encntr for recenterer exam (general) - (routine) w/o 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 [...] tri Twin , - dichorionic/diamniotic, third trimester 29 weeks gestation of - Thyroid Dysfunction w/ Routine Care, Multigravida 38 weeks gestation of - Active Procedures Procedure Date Immuniz admnin, 1 vac, sngl/combo 20 Yrs + TDAP VACCINE >7 IM OB Visit No Charge Results Test Name Date and Time Measure Units Reference Range Abnormal Flag Comments Unknown Advance Directives Directive Yes / No Effective Date File Name Unknown Encounters Encounter Practice Location Reason(s) Diagnoses Date Provider Care Team Description For Visit Members Ben Corbett Twin , Apr-2 Cordell Referring In Womens dichorionic/diamn 5-201 [place]. 700 Provider: Health JUDIE, iotic, third 8 Medical El PO Box [id number] weeks Center Cordell Cornell, 1522, gestation of Jori Lopez, 120, Medical Aric IBARRA, [place] [id number], [place], Jori 120, [place] [id number] Aric, tel: , [place]. [place], tel:[phone]. [id number] tel:[phone] Ben Corbett Spotting Apr-1 Cordell Referring In Womens Ultrasound complicating 9-201 Ava. 700 Provider: Health JUDIE, , third 8 Medical El PO Box trimesterTwin Center Cordell Cornell, 1522, , Jori Lopez, dichorionic/diamn 120, Medical [place], iotic, third [place], [place] [id number], trimesterPrevious [place], Jori 120, [place] Low Transverse [id number] Aric, tel: C-Fujheiv48 weeks , [place]. [place], gestation of tel:[phone]. [id number] tel:[phone] Ben Corbett Twin , Apr-1 Cordell Referring In Womens dichorionic/diamn 9-201 Ava. 700 Provider: Health JUDIE, iotic, third 8 Medical El PO Box trimesterPrevious Center Cordell R, 1522, Low Transverse Jori Lopez, C-SectionAnemia 120, Medical [place], complicating Aric [place] [id number], , third [place], Jori 120, [place] trimesterEndo, [id number] Aric, tel: nutritional and , [place]. [place], metab diseases tel:[phone]. comp preg, third [id number] tel: [phone] Ben Corbett Twin , Apr-1 Cordell Referring In Womens dichorionic/diamn 2-201 Ava. 700 Provider: Health JUDIE iotic, third 8 Medical El PO Box [id number] weeks Center Cordell Cornell, 1522, gestation of Jori Lopez, 120, Medical Aric IBARRA, [place] [id number], [place], Jori 120, [place] [id number] Aric, tel: , [place]. [place], tel: [phone]. [id number] tel:[phone] Ben Corb[place] Twin , Mar-2 Cordell Referring In Womens dichorionic/diamn - El. 700 Provider: katrin Finley, third 8 Medical El PO Box [email or web address] weeks Center Cordell R, 1522, gestation of Jori Lopez, 120, Medical Aric IBARRA, [place] [id number], [place], Jori 120, [place] [id number] Aric, tel: , [place]. [place], tel: [phone]. [id number] tel:[phone] Ben Corbett Mar-1 Hutchinson Referring In Womens 6- Lindsay. Provider: Gustavo DIMAS, [address] [place] [address] Box [facility] Cordell R, 1522, Center [address], [facility], 120, [place] [id number], Aric, [facility] 120, [place] Aric IBARRA, tel:[phone] [place], , [place]. [id number]. tel: tel: [phone] Ben Corbett Twin , Mar-1 Cordell Referring In Womens dichorionic/diamn - Ava. 700 Provider: Health JUDIE, katrin, second 8 Medical El PO Box [email or web address] weeks Center Cordell R, 1522, gestation of Jori Lopez, 120, Medical Aric [facility] [id number], [place], Jori 120, [place] [id number] Aric, tel: , [place]. [place], tel: [phone]. [id number] tel:[phone] Associates Aric Spotting Mar-1 Cordell Referring In Womens Ultrasound complicating El. 700 Provider: Health JUDIE, , second 8 Medical El PO Box trimesterTwin Center Cordell R, 1522, , Jori Lopez, dichorionic/diamn 120, Medical STACEY, katrin, second [facility] [id number], trimesterPrevious [place], Jori 120, [place] Low Transverse [id number] Aric, tel: C-Qvjtqbx52 weeks , [place]. [place], gestation of tel:[phone]. [id number] tel:[phone] Ben Corbett Twin , Feb-2 Cordell Referring In Womens dichorionic/diamn 7-201 El. 700 Provider: katrin Finley, second 8 Medical El PO Box trimesterEndo, Center Cordell Cornell, 1522, nutritional and , Jori 700 [place], metab diseases 120, Medical [place], comp preg, second Aric, [place] [id number], tri25 weeks [place], [facility] 120, [place] gestation of [id number] [place], tel: pregnancyType A , [place]. [place], blood, Rh tel:[phone]. negative [id number] tel:[phone] Ben Corbett Twin , Feb-2 Cordell Referring In Womens dichorionic/diamn 3-201 El. 700 Provider: katrin Finley, second 8 Medical El PO Box weeks Center Cordell Cornell, 1522, gestation of , Jori Saskia Downing, 120, Medical STACEY, Aric, [place] [id number], [place], [facility] 120, [place] [id number] [place], tel: , [place]. [place], tel:[phone]. [id number] tel:[phone] Ben Corbett Twin , Feb-0 Cordell Referring In Womens dichorionic/diamn 8-201 El. 700 Provider: katrin Finley, second 8 Medical El PO Box trimesterPrevious Center Cordell Cornell, 1522, Low Transverse , Jori 700 [place], C-SectionEndo, 120, Medical STACEY, nutritional and Aric, [place] [id number], metab diseases [place], Jori 120, [place] comp preg, second [id number] Aric, tel: tri22 weeks , [place]. [place], gestation of tel:[phone]. 64361700 tel:[phone] Ben Corbett Oth Jesus-2 Cordell Referring In Womens related 4-201 El. 700 Provider: donald Finley, 8 Medical El PO Box second trimester Center Cordell Cornell, 1522, Dr Jori Saskia Downing, 120, Medical STACEY, [place], [place] [id number], [place], Jori 120, [place] [id number] Aric, tel: , [place]. [place], tel:[phone]. [id number] tel:[phone] Ben Corb[place] Twin , Jesus-1 Cordell Referring In Womens dichorionic/diamn 8-201 El. 700 Provider: Health JUDIE iotblake, second 8 Medical El PO Box [email or web address] weeks Center Cordell R, 1522, gestation of Jori Lopez, 120, Medical Aric IBARRA, [place] [id number], [place], Jori 120, [place] [id number] Aric, tel: , [place]. [place], tel:[phone]. [id number] tel:[phone] Ben Corb[place] Twin , Jesus-1 Cordell Referring In Womens Ultrasound dichorionic/diamn 8-201 El. 700 Provider: Gustavo DIMAS iotblake, second 8 Medical El PO Box trimesterPrevious Center Cordell R, 1522, Low Transverse , Jori Saskia Downing, C-SectionEndo, 120, Medical [place], nutritional and Aric, [place] [id number], metab diseases [place], Jori 120, [place] comp preg, second [id number] Aric, tel: tri19 weeks , [place]. [place], gestation of tel: [phone]. 36343636 tel:[phone] Ben Corb[place] Twin , Jesus-0 Cordell Referring In Womens dichorionic/diamn 3-201 El. 700 Provider: Health JUDIE iotic, second 8 Medical El PO Box [email or web address] weeks Center Cordell R, 1522, gestation of Jori Lopez, 120, Medical Aric IBARRA, [place] [id number], [place], Jori 120, [place] [id number] Aric, tel: , [place]. [place], tel: [phone]. [id number] tel:[phone] Ben Corbett Spotting Dec-2 Cordell Referring In Womens complicating 0-201 El. 700 Provider: Health PA, , second 7 Medical El PO Box trimesterEndo, Center Cordell Cornell, 1522, nutritional and Jori Lopez [place], metab diseases 120, Medical STACEY, comp preg, second [facility] [id number], tri15 weeks [place], [facility] 120, [place] gestation of [id number] Aric, tel:+ , [place]. [place], tel: [phone]. [id number] tel:[phone] Ben Corbett Spotting Dec-1 Cordell Referring In Womens complicating 3-201 El. 700 Provider: Health JUDIE, , second 7 Medical El PO Box trimesterTwin Center Cordell Cornell, 1522, , Jori Lopez, dichorionic/diamn 120, Medical STACEY, iotic, second [facility] [id number], [id number] weeks [place], Jori 120, [place] gestation of [id number] Aric, tel:+ , [place]. [place], tel: [phone]. 68471060 tel:[phone] Ben Corbett Spotting Dec-0 Cordell Referring In Womens complicating 5-201 El. 700 Provider: Health JUDIE, , first 7 Medical El PO Box [id number] weeks Center Cordell Cornell, 1522, gestation of Jori Lopez, 120, Medical Aric [facility] [id number], [place], [facility] 120, [place] [id number] Aric, tel:+ , [place]. [place], tel: [phone]. [id number] tel:[phone] Ben Corbett Spotting Nov-3 Cordell Referring In Womens complicating 0-201 El. 700 Provider: Health JUDIE, , first 7 Medical El PO Box [id number] weeks Center Cordell Cornell, 1522, gestation of Jori Lopez, 120, Medical Aric [facility] [id number], [place], Jori 120, [place] [id number] Aric, tel:+ , [place]. [place], tel: [phone]. 66818504 tel:[phone] Ben Corbett Hemorrhage in Nov-2 Hutchinson Referring In Womens early , 9-201 Lindsay. Provider: Health PA, unspecifiedTwin 7 700 Ava PO Box , Medical Cordell R, 1522, dichorionic/diamn Center 700 [place], katrin, [facility] , [facility], [id number] weeks 120, [place] [id number], gestation of [place], Jori 120, [place], Aric, tel: [phone] [place], , [place]. [id number]. tel: tel: [phone] Ben Corbett Supervision of Cordell Referring In Womens other high risk - Ava. 700 Provider: Health JUDIE, pregnancies, 7 Medical Ava PO Box first Center Cordell R, 1522, trimesterTbernardo Lopez, [facility] 700 [place], , 120, Medical [place], dichorionic/diamn [place], [place] [id number], iot, [facility], Jori 120, [place] trimesterEncntr [id number] Aric, tel: screen for , [place]. [place], infections w sexl tel: [phone]. mode of [id number] tel: transmissEncounte [id number] r for screening for oth infec/parastc diseasesEncounter for screening of weeks gestation of Associates Aric Encntr for recenterer Cordell Referring In Womens exam (general) 0- Ava. 700 Provider: Health JUDIE, (routine) w/o abn 6 Medical Tommy [facility] PO Box findings Center L, [address], Dr Jori 609, [place], 120, [place], [place], [place], [address]. , [place], tel: US [phone] tel: , [place]. tel: [phone] Ben Corbett Hypothyroidism, Cordell Referring In Womens unspecified - Ava. 700 Provider: Health JUDIE, 6 Medical Tommy Wedel PO Box Center L, [address], Dr Jori 609, [place], 120, [place], [place], [place], [address]. , [place], tel: [phone] tel: , [place]. tel: [phone] Ben Corbett Hypothyroidism, Dec-0 Cordell Referring In Womens unspecifiedPostpa 1-201 Ava. 700 Provider: Health JUDIE, rtum Follow-Up, 5 Medical Tommyrenata Ruiz PO Box Routine Center L, [address], , Jori 609, [place], 120, [place], [place], [place], [address]. , [place], tel: [place] [phone] tel: , [place]. tel: [phone] Ben Corbett Oct-2 Cordell Referring In Womens Follow-Up, 0-201 Ava. 700 Provider: Gustavo DIMAS, Routine 5 Medical Tommy Ruiz PO Box Center L, [address], , Jori 609, [place], [facility], [place], [place], [place], [address]. [id number], [place], tel: [phone] tel: , [place]. tel: [phone] Ben Corbett Thyroid Oct-0 Cordell Referring In Womens Dysfunction w/ 1-201 Ava. 700 Provider: Health JUDIE, PregnancyRoutine 5 Medical Tommy Garnet [facility] PO Box Care, Center L, [address], [id number] , Jori 609, [place], weeks gestation 120, [place], [place], [place], [address]. , [place], tel: [phone] tel: , [place]. tel: [phone] Ben Corbett Sep-1 Holdeman Referring In Womens 7-201 Christy. Provider: Health JUDIE, 5 700 El PO Box Medical Cordell R, 1522, Center [address] Dr Chang, [facility], 120, [place] [id number], Aric, [facility] 120, STACEY, Aric, tel: [phone] [place], , [place]. [id number]. tel: tel: [phone] Ben Corbett Mayo-1 Cordell Referring In Womens 6-201 Ava. 700 Provider: Health JUDIE, 5 [facility] Box [place] Cordell R, 1522, , Jori 700 [place], [facility], [facility], [facility] [id number], [place], [place] [address], [id number] [place], tel: , . [place], tel: [phone]. [id number] tel:[phone] Associates Aric Mar-3 Cordell Referring In Womens 0-201 Ava. 700 Provider: Health JUDIE, 3 [facility] Box Center L, [address], , Jori 609, [place], [facility], [place], [place], [place], [address]. [id number], [place], tel: [phone] tel: , [place]. tel: [phone] Associates Aric Jesus-0 Cordell Referring In Womens 3-201 Ava. 700 Provider: Gustavo DIMAS, 2 [facility] Box Center L, [address], , Jori 609, [place], [facility], [place], [place], [place], [address]. [id number], [place], tel: [phone] tel: , [place]. tel: [phone] Family History Family Member Diagnosis Age At [...] name Insurance type Covered libertarian ID Authorization(s) [place] [id number] [place] [id number] [place] [id number] [place] [id number] [place] [id number] [place] [id number] Social History Type Description Quantity Date Captured Alcohol Use Details No Caffeine Use Details Unknown Tobacco Use Status Unknown Smoking Status Never smoker Vital Signs Date / Height Weight BMI Pulse Blood Temperature Respiratory Body Head BMI Time: Rate Pressure Rate Surface Circumference percentile Area 283.00 44.3 134/74 2018 lbs 2 mm[Hg] 9:10 kg/m AM eter (2) Chief Complaint And Reason For Visit Unknown Chief Complaint And Reason For Visit Reason For Referral Reason For Referral Unknown Plan Of Care Date Type Action Status Appointment Biju Pollard BOOKED Appointment Biju Pollard [facility] C/S, PPTL BOOKED Future Order: Radiology Order Ultrasound OB Follow-up ([id number]) Ordered Future Order: Radiology Order Ultrasound OB Follow-up ([id number]) Ordered Future Order: Radiology Order Complete OB Ultrasound > 14 Ordered Weeks (30370) Future Order: Lab Order Pap Smear With [...]
--- OUTSIDE RECORDS SUMMARY | 2017-07-24 18:23 | External Medical Summary | Continuity of Care Document ---
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 STACEY, tel: [phone]. [phone] tel:[phone] Ben Jennings Feb- Cordell Referring In Womens complicating 3-201 El. 700 Provider: Gustavo DIMAS, , second 7 Medical El Box trimesterTwin [place] Cordell Cornell, 1522, , Dr Jori 700 [place], dichorionic/diamnio 120, Medical [place], tic, second Emily [address] [id number], [id number] weeks STACEY Jori 120, [place] gestation of [id number] Aric, tel: , [place]. [place], tel: [phone]. [phone] tel:[phone] Ben Corbett Spotting Dec-0 Cordell Referring In Womens complicating 5-201 El. 700 Provider: Gustavo DIMAS, , first 7 Medical El PO Box [id number] weeks Center Cordell R, 1522, gestation of Jori Lopez 700 [place], 120, Medical Aric IBARRA, [place] [id number], [place], [facility] 120, [place] [id number] Aric, tel: , [place]. [place], tel: [phone]. [phone] tel:[phone] Ben Corbett Spotting Nov-3 Cordell Referring In Womens complicating 0-201 El. 700 Provider: Gustavo DIMAS, , first 7 Medical El PO Box [id number] weeks Center Cordell R, 1522, gestation of Jori Lopez, 120, Medical Aric [facility] [id number], [place], [facility] 120, [place] [id number] Aric, tel: , [place]. [place], tel: [phone]. [phone] tel:[phone] Ben Corbett Hemorrhage in early Jan- Hutchinson Referring In Womens , 9-201 Lindsay. Provider: Gustavo DIMAS, unspecifiedTwin 7 700 El PO Box , Medical Cordell R, 1522, dichorionic/diamnio Center 700 tay Downing, first Lopez [facility] Monica IBARRA, [email or web address] weeks 120, [place] [id number], gestation of Aric [facility] 120, [place] Aric IBARRA, tel: [phone] [place], , [place]. [id number]. tel: tel: [phone] Ben Corbett Supervision of Cordell Referring In Womens other high risk 5-201 El. 700 Provider: Gustavo DIMAS, pregnancies, first 7 Medical El PO Box trimesterTwin Center Cordell R, 1522, , Jori Lopez, dichorionic/diamnio 120, Medical tay IBARRA, Emily [address] Dr [id number], trimesterEncntr STACEY, Jori 120, [place] screen for [id number] Aric, tel: infections w sexl , [place]. [place], mode of tel: [phone]. 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 700 Provider: Gustavo DIMAS, w/o 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 6 Medical Tommy [facility] PO Box Center L, [address], , Jori 609, [place], 120, [place], [place], [place], [address]. , [place], tel: [phone] tel: , [place]. tel: [phone] Associates Aric Hypothyroidism, Apr- Cordell Referring In Womens unspecified 6-201 El. 700 Provider: Gustavo DIMAS, 6 Medical Tommy [facility] PO Box Center L, [address], , Jori 609, [place], 120, [place], [place], [place], [address]. , [place], tel: [phone] tel: , [place]. tel: [phone] Associates Aric Hypothyroidism, Dec-0 Cordell Referring In Womens unspecifiedPostpart 1-201 El. 700 Provider: Gustavo DIMAS, um Follow-Up, 5 Medical Tommy [facility] PO Box Routine Center L, [address], , Jori 609, [place], 120, [place], [place], [place], [address]. , [place], tel: [place] [phone] tel: , [place]. tel: [phone] Ben Corbett Oct-2 Cordell Referring In Womens Follow-Up, Routine 0-201 El. 700 Provider: Gustavo DIMAS, 5 [facility] PO Box Center L, [address], , Jori 609, [place], 120, [place], [place], [place], [address]. , [place], tel: [place] [phone] tel: , [place]. tel: [phone] Ben Corbett Thyroid Dysfunction Oct-0 Cordell Referring In Womens w/ PregnancyRoutine 1-201 [place]. 700 Provider: Health JUDIE, Care, 5 [facility] Box [id number] Center L, [address], weeks gestation of , Jori 609, [place], 120, [place], [place], [place], [address]. [id number], [place], tel: [place] [phone] tel: , [place]. tel: [phone] Ben Corbett Sep-1 [place] Referring In Womens 7-201 [place]. Provider: Gustavo DIMAS, [address] [place] [address] R, 1522, Center [address] Dr Chang, [facility], 120, [place] [id number], [place], [facility] 120, [facility], tel: [phone] [place], , [place]. [id number]. tel: tel: [phone] Ben Corbett Sep-1 Cordell Referring In Womens 6-201 [place]. 700 Provider: Health JUDIE, 5 [facility] Cordell R, 1522, , Jori 700 [place], 120, Medical STACEY, Aric, [place] [id number], [place], [facility] 120, [place] [id number] Aric, tel: , . [place], tel: [phone]. [phone] tel:[phone] Ben Corbett Jesus-3 Cordell Referring In Womens 0-201 [place]ing. 700 Provider: Health JUDIE, 3 [facility] Center L, [address], , Jori 60Eunice, [place], 120, [place], [place], [place], [address]. , [place], tel: [place] [phone] tel: , [place]. tel: [phone] Ben Corbett Jesus-0 Cordell Referring In Womens 3-201 [place]. 700 Provider: Gustavo DIMAS, 2 Medical Tommy Ruiz PO Box Center L, [address], , Jori 609, [place], 120, [place], [place], [address]. [id number], [place], tel: [phone] tel: , [place]. [address] tel: [phone] Family History Family Member Diagnosis Age At [...] Insurance type Covered constitution party ID Authorization(s) [facility] [id number] [facility] [id number] [facility] [id number] [facility] [id number] Social History Type Description Quantity Date Captured [...]
--- OUTSIDE RECORDS SUMMARY | 2017-07-24 18:23 | External Medical Summary | Continuity of Care Document ---
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) - (routine) w/o 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 Follow-Up, Routine - Twin , - dichorionic/diamniotic, second trimester Endo, nutritional and metab diseases - comp preg, second tri 25 weeks gestation of - Type A blood, Rh negative - Twin , - dichorionic/diamniotic, second trimester Previous Low Transverse - Endo, nutritional and metab diseases - comp preg, second tri 22 weeks gestation of - Hypothyroidism, unspecified Follow-Up, [...] second trimester 25 weeks gestation of - Thyroid Dysfunction w/ Routine Care, Multigravida 38 weeks gestation of - Active Procedures Procedure Date OB Visit No Charge RBC antibody screen, each Glucose test Hemoglobin count, colorimetric Hematocrit blood count Venpnctr fngr/heel/ear stick routne Results Test Name Date and Time Measure Units Reference Range Abnormal Flag Comments Panel Description: Glucose [Mass/volume] in Serum or Plasma --1 hour post 50 g glucose PO GLUCOSE, 106 mg/dL <140 N Test performed at [employer] SCREEN 09:39:00 XIHA (50G)-[address] [place] [address]Phoizxrd: SHY CRUZ DO,MPH Panel Description: HEMOGLOBIN + HEMATOCRIT HEMOGLOBIN 09:39:00 10.7 g/dL 11.7-15.5 L HEMATOCRIT 09:39:00 33.2 % 35.0-45.0 L Test performed at [facility] [facility] [place] [place] [address]Mhlohinb: SHY CRUZ DO,MPH Panel Description: ANTIBODY SCREEN, RBC W/REFL ID, TITER AND AG ANTIBODY NO ANTIBODIES N Reference SCREEN, RBC 09:39:00 DETECTED range No W/REFL ID, antibodies detected This TITER AND AG assay is a screening test for the detection of red blood cell antibodies. The test is not to be used for pretransfusion screening or for the medical management of an alloimmunized . REPORT COMMENT:FASTING:NOTest performed at [facility] and CoVET[facility] [address]Yambvktx: SHY CRUZ DO,MPH Advance Directives Directive Yes / No Effective Date File Name Unknown Encounters Encounter Practice Location Reason(s) Diagnoses Date Provider Care Team Description For Visit Members Ben Corbett May- Hutchinson Referring In Womens [place]. Provider: Javon Finley [address] [place] [address] Cordell Cornell, 1522, Center [address], [facility], 120, Center [id number], Corbett, [facility] 120, [place] Aric IBARRA, tel:[phone] [place], , [place]. [id number]. tel: tel: [phone] Ben Corbett Twin , Cordell Referring In Womens dichorionic/diamn [place]. 700 Provider: katrin Finley, second 8 Medical [facility] Box [id number] weeks [place] Cordell Cornell, 1522, gestation of Dr [facility] Saskia [place], 120, Medical [place], [facility] [id number], [place], [facility] 120, [place] [id number] Corbett, tel: , [place]. [place], tel: [phone]. [phone] tel:[phone] Ben Corbett Spotting Cordell Referring In Womens Ultrasound complicating El. 700 Provider: Gustavo DIMAS, , second 8 Medical [facility] Box trimesterTwin [place] Cordell Cornell, 1522, , Dr Jori Saskia Downing, dichorionic/diamn 120, Medical STACEY, iotic, second [facility] [id number], trimesterPrevious STACEY, Jori 120, [place] Low Transverse [id number] Aric, tel: C-Tcrjbjj05 weeks , [place]. [place], gestation of tel: [phone]. [phone] tel:[phone] Ben Corbett Twin , Apr- Cordell Referring In Womens dichorionic/diamn El. 700 Provider: Gustavo DIMAS iotblake, second 8 Medical [facility] Box trimesterEndo, [place] Cordell R, 1522, nutritional and Dr Jori Saskia Downing, metab diseases 120, Medical STACEY, comp preg, second [facility] [id number], tri25 weeks [place], Jori 120, [place] gestation of [id number] Aric, tel: pregnancyType A , [place]. [place], blood, Rh tel:[phone]. negative [id number] tel:[phone] Ben Corbett Twin , Feb-2 Cordell Referring In Womens dichorionic/diamn 3-201 [place]. 700 Provider: katrin Finley, second 8 Medical El PO Box [id number] weeks Center Cordell Cornell, 1522, gestation of Jori Lopez, 120, Medical Aric [facility] [id number], [place], Jori 120, [place] [id number] Aric, tel: , [place]. [place], tel:[phone]. [id number] tel:[phone] Ben Corbett Twin , Feb-0 Cordell Referring In Womens dichorionic/diamn 8-201 [place]. 700 Provider: katrin Finley, second 8 Medical [facility] Box trimesterPrevious Center Cordell R, 1522, Low Transverse Dr Jori Saskia Downing, C-SectionEndo, 120, Medical [place], nutritional and [facility] [id number], metab diseases [place], Jori 120, [place] comp preg, second [id number] Aric, tel: tri22 weeks , [place]. [place], gestation of tel:[phone]. [phone] tel:[phone] Ben Corbett Feb-0 Cordell In Womens 1-201 [place]. 700 Health JUDIE, 8 Medical PO Box Center 1522, Jori Lopez, 120, [place], [place], [id number], [place], [place] [id number] tel: , [place]. tel: [phone] Ben Corbett Oth Jesus-2 Cordell Referring In Womens related 4-201 [place]. 700 Provider: donald Finley, 8 Medical [place] PO Box second trimester Center Cordell Cornell, 1522, Jori Lopez, 120, Medical Aric [facility] [id number], [place], Jori 120, [place] [id number] Aric, tel: , [place]. [place], tel: [phone]. [phone] tel:[phone] Associates Aric Twin , Jesus-1 Cordell Referring In Womens dichorionic/diamn 8-201 El. 700 Provider: Gustavo DIMAS iotblake, second 8 Medical El PO Box [id number] weeks Center Cordell R, 1522, gestation of Jori Lopez, 120, Medical STACEY, Aric, [place] [id number], [place], Jori 120, [place] [id number] Aric, tel: , [place]. [place], tel: [phone]. [phone] tel:[phone] Associates Aric Twin , Jesus-1 Cordell Referring In Womens Ultrasound dichorionic/diamn 8-201 El. 700 Provider: katrin Finley, second 8 Medical El PO Box trimesterPrevious Center Cordell R, 1522, Low Transverse Jori Lopez, C-SectionEndo, 120, Medical [place], nutritional and [facility] [id number], metab diseases [place], Jori 120, [place] comp preg, second [id number] Aric, tel: tri19 weeks , [place]. [place], gestation of tel: [phone]. [phone] tel:[phone] Ben Corbett Twin , Jesus-0 Cordell Referring In Womens dichorionic/diamn 3-201 El. 700 Provider: Gustavo DIMAS iotblake, second 8 Medical El PO Box [id number] weeks Center Cordell R, 1522, gestation of Jori Lopez, 120, Medical STACEY, Aric, [place] [id number], [place], Jori 120, [place] [id number] Aric, tel: , [place]. [place], tel: [phone]. [id number] tel:[phone] Associates Aric Spotting Dec-2 Cordell Referring In Womens complicating 0-201 El. 700 Provider: Health JUDIE, , second 7 Medical El PO Box trimesterEndo, Center Cordell Cornell, 1522, nutritional and Jori Lopez, metab diseases 120, Medical [place], comp preg, second Aric Dawson [id number], tri15 weeks [place], [facility] 120, [place] gestation of [id number] Aric, tel: , [place]. [place], tel: [phone]. [phone] tel:[phone] Associates Aric Spotting Dec-1 Cordell Referring In Womens complicating 3-201 El. 700 Provider: Health JUDIE, , second 7 Medical El PO Box trimesterTwin Center Cordell Cornell, 1522, , Jori Lopez, jefforionic/diamn 120, Medical STACEY, iotblake, second [facility] [id number], [id number] weeks [place], [facility] 120, [place] gestation of [id number] Aric, tel: , [place]. [place], tel: [phone]. [phone] tel:[phone] Ben Corbett Spotting Dec-0 Cordell Referring In Womens complicating 5-201 El. 700 Provider: Gustavo DIMAS, , first 7 Medical El PO Box [id number] weeks [place] Cordell Cornell, 1522, gestation of Jori Lopez, 120, Medical Aric [facility] [id number], [place], [facility] 120, [place] [id number] Aric, tel: , [place]. [place], tel: [phone]. [phone] tel:[phone] Ben Corbett Spotting Nov-3 Cordell Referring In Womens complicating 0-201 El. 700 Provider: Gustavo DIMAS, , first 7 Medical El PO Box [id number] weeks Center Cordell Cornell, 1522, gestation of Jori Lopez, 120, Medical Aric [facility] [id number], [place], [facility] 120, [place] [id number] Aric, tel: , [place]. [place], tel: [phone]. [phone] tel:[phone] Associates Aric Hemorrhage in Nov-2 [place]inson Referring In Womens early , 9-201 [place]. Provider: Gustavo DIMAS, unspecifiedTwin 7 700 El PO Box , Medical Cordell Cornell, 1522, dichorionic/diamn katrin Leroy first Dr, [facility], [id number] weeks 120, [place] [id number], gestation of Corbett, [facility] 120, [place], Corbett, tel:[phone] [place], , [place]. [id number]. tel: tel: [phone] Ben Corbett Supervision of Cordell Referring In Womens other high risk -201 [place]. 700 Provider: Health PA, pregnancies, 7 Medical [place] PO Box first Center Cordell R, 1522, trimesterTwin , Jori 700 [place], , 120, Medical [place], [facility]n [facility] [id number], iotic, [facility], [facility] 120, [place] trimesterEncntr [id number] Aric, tel: screen for , [place]. [place], infections w sexl tel: [phone]. 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 700 Provider: Health JUDIE, (routine) w/o abn 6 [facility] PO Box findings Center L, [address], , Jori 609, [place], [facility] [place], [place], [place], [place], [address]. , [place], tel: [phone] tel: , [place]. tel: [phone] Ben Corbett Hypothyroidism, Apr- Cordell Referring In Womens unspecified -201 [place]. 700 Provider: Health JUDIE, 6 [facility] PO Box Center L, [address], , Jori 609, [place], 120, [place], [place], [place], [address]. , [place], tel: [phone] tel: , [place]. tel: [phone] Ben Corbett Hypothyroidism, Feb- Cordell Referring In Womens unspecifiedPostpa - [place]. 700 Provider: Health JUDIE, rtum Follow-Up, 5 Medical Tommyrenata Ruiz PO Box Routine Center L, [address], , Jori 609, [place], 120, [place], [place], [place], [address]. [id number], [place], tel: [place] [phone] tel: , [place]. tel: [phone] Ben Corbett Oct-2 Cordell Referring In Womens Follow-Up, 0-201 [place]. 700 Provider: Gustavo DIMAS, Routine 5 Medical [facility] PO Box Center L, [address], , Jori 609, [place], 120, [place], [place], [place], [address]. , [place], tel: [place] [phone] tel: , [place]. tel: [phone] Ben Corbett Thyroid Oct-0 Cordell Referring In Womens Dysfunction w/ 1-201 El. 700 Provider: Gustavo DIMAS, PregnancyRoutine 5 Medical [facility] PO Box Care, Center L, [address], [id number] , Jori 609, [place], weeks gestation 120, [place], [place], [place], [address]. , [place], tel: [place] [phone] tel: , [place]. tel: [phone] Ben Corbett Sep-1 [place] Referring In Womens 7-201 [place]. Provider: Gustavo DIMAS, [address] [place] [address] Cordell R, 1522, Center 700 Dr Chang, [facility], 120, [place] [id number], Aric, [facility] 120, [place] Aric IBARRA, tel:[phone] [place], , [place]. [id number]. tel: tel: [phone] Ben Corbett Mayo-1 Cordell Referring In Womens 6-201 El. 700 Provider: Gustavo DIMAS, 5 [facility] Box Center Cordell R, 1522, , Jori 700 [place], 120, Medical [place], Corbett, [place] [id number], [place], Jori 120, [place] [id number] Aric, tel: , [place]. [place], tel: [phone]. [phone] tel:[phone] Associates Aric Jesus-3 Cordell Referring In Womens 0-201 [place]. 700 Provider: Health PA, 3 Medical [facility] PO Box Center L, [address], , Jori 609, [place], 120, [place], [place], [place], [address]. , [place], tel: [phone] tel: , [place]. tel: [phone] Associates Aric Jesus-0 Cordell Referring In Womens 3-201 [place]. 700 Provider: Health PA, 2 Medical Tommy [facility] PO Box Center L, [address], , Jori 609, [place], 120, [place], [place], [place], [address]. , [place], tel: [phone] tel: , . tel: [phone] Family History Family Member Diagnosis Age At [...] of Diabetes Immunizations Vaccine Date Status Comments [facility] completed Source: New Immunization Record Influenza, injectable, completed Source: Source Unspecified quadrivalent, preservative free, 3 yrs or older Tdap completed Source: New Immunization Record Influenza, seasonal, injectable, completed Source: New Immunization Record preservative free, 3 yrs or older Rhophylac completed Source: New Immunization Record Payers Payer name Insurance type Covered green party ID Authorization(s) [facility] [place] [id number] BS [place] [id number] [place] [id number] [place] BL [id number] BS [place] BL [id number] Social History Type Description Quantity Date Captured Alcohol Use Details No Caffeine Use Details Unknown Tobacco Use Status Unknown Smoking Status Never smoker Vital Signs Date / Height Weight BMI Pulse Blood Temperature Respiratory Body Head BMI Time: Rate Pressure Rate Surface Circumference percentile Area 277.80 43.5 118/78 -2018 lbs 1 mm[Hg] 8:32 kg/m AM eter (2) Chief Complaint And Reason For Visit Unknown Chief Complaint And Reason For Visit Reason For Referral Reason For Referral Unknown Plan Of Care Date Type Action Status Appointment Biju Pollard BOOKED Appointment Biju Pollard COC R C/S, PPTL BOOKED Future Order: Radiology Order Ultrasound OB Follow-up (12063) Ordered Future Order: Radiology Order Complete OB Ultrasound > 14 Ordered Weeks (41299) Future Order: Lab Order Pap Smear With [...]
--- OUTSIDE RECORDS SUMMARY | 2017-07-24 18:24 | External Medical Summary | Continuity of Care Document ---
:1985 Author Organization [facility] Allergies Active Description Code Type Severity Reaction Onset Reported/ Identified Relationship Clinical to Patient Status Yes Ciprofloxaci 06937 Drug Moderate nausea n HCl 004AW Aller gy Yes ciprofloxaci 2882 1 N/A Hives T n Nausea Yes CIPROFLOXACI 3577 1 N/A Hives T N HCL Nausea Yes No Known 57753 3 N/A N/A 02/06/1100 Drug 0 Allergies Yes Quinolones cipro Aller N/A N/A 04/19/2011 floxa gy michael Medications Medication Packaging Start Stop Route Dosage Sig Date Date PO 200 mg DAILY Dha 5 Unspecified 01/17/20 Add MUPIROCIN 5 16 Betamethasone ointment 0.1% (15gms) to which is added Nystatin powder to a concentration of 2% Nystatin. Apply sparingly after each feeding. Do not wash or wipe off. Tablet 01/17/20 take FLUCONAZOLE 6 16 2 tabs by mouth the first day, take 1 tab by mouth everyday for 14 days Tablet 10/25/19 TAKE SYNTHROID 6 16 ONE TABLET BY MOUTH DAILY Package 11/24/19 take KARIVA 6 16 1 tablet by oral route every day Tablet 01/18/20 TAKE SYNTHROID 6 16 ONE TABLET BY MOUTH DAILY Tablet 01/18/20 TAKE KARIVA 6 16 ONE TABLET BY MOUTH DAILY Tablet 01/22/20 TAKE KARIVA 6 17 ONE TABLET BY MOUTH DAILY Tablet 01/23/20 TAKE SYNTHROID 6 17 ONE TABLET BY MOUTH DAILY Tablet 01/22/20 TAKE SYNTHROID 7 17 ONE TABLET BY MOUTH DAILY Tablet TAKE SYNTHROID 7 ONE TABLET BY MOUTH DAILY Syringe 05/23/19 MICRHOGAM 7 18 DIRECTED ULTRA-FILTERED PLUS Capsule 04/16/19 take KEFLEX 8 18 1 capsule by ORAL route 3 times every day Tablet 07/03/19 take SYNTHROID 8 18 1 tablet by oral route every day Tablet take FOLIC ACID 8 3 tablet by oral route every day Syringe RHOPHYLAC 8 IRON Tablet take 8 1 tablet by ORAL route every day Tablet take SYNTHROID 8 1 tablet by oral route every day Problems Date Dx Attending Type Code Diagnosis Diagnosed By Coded 11/24/2014 El Landa 648.13 Thyroid Disorder, Antepartum 11/24/2014 Christy Romero 648.13 Thyroid Disorder, S Antepartum 11/24/2014 Christy Romero 656.13 Rh Isoimmunization, S Antepartum 11/24/2014 Christy Romero 788.41 Urinary Frequency S 11/24/2014 Christy Romero V22.1 Supervision Of S , Multigravida 11/24/2014 Christy Romero V23.0 With S History Of Infertility 11/24/2014 Christy Romero V28.6 Lab Screening For S Group B Strep 05/01/2015 El Landa E03.9 Hypothyroidism, unspecified 02/05/2017 Lindsay Hutchinson O20.9 Hemorrhage in early , unspecified 02/05/2017 Lindsay Hutchinson 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 , dichorionic/diamnio tic, first trimester 02/05/2017 Lindsay Hutchinson Z3A.12 12 weeks gestation of 02/06/2017 Lindsay Hutchinson O20.9 Hemorrhage in early , unspecified 02/06/2017 Lindsay Hutchinson 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 , dichorionic/diamnio tic, first trimester 02/06/2017 Lindsay Hutchinson Z3A.12 12 weeks gestation of 03/27/2017 El Landa O30.042 Twin , dichorionic/diamnio tic, second trimester 03/27/2017 El Landa O34.211 Previous Low Transverse 03/27/2017 El Landa O99.282 Endo, nutritional and metab diseases comp preg, second tri 03/27/2017 El Landa Z3A.19 19 weeks gestation of 03/28/2017 Rajiv JEAN, Jose Angel F 786.2 Cough Ritchie 04/04/2017 El Landa O26.892 Oth related conditions, second trimester 04/04/2017 El Landa O26.892 Oth related conditions, second trimester 05/21/2017 El Landa O26.852 Spotting complicating , second trimester 05/21/2017 El Landa O30.042 Twin , dichorionic/diamnio tic, second trimester 05/21/2017 El Landa W O34.211 Previous Low Transverse 05/21/2017 El Landa Z3A.27 27 weeks gestation of 06/26/2017 El Landa O26.853 Spotting complicating , third trimester 06/26/2017 El Landa O30.043 Twin , dichorionic/diamnio tic, third trimester 06/26/2017 El Landa W O34.211 Previous Low Transverse 06/26/2017 El Landa W Z3A.32 32 weeks gestation of 07/17/2017 El Landa O30.043 Twin , dichorionic/diamnio tic, third trimester 07/17/2017 El Landa O34.211 Previous Low Transverse 07/17/2017 El Landa O36.5931 Matern care for oth or susp poor fetl grth, third tri, fts1 07/17/2017 El Landa W Z3A.35 35 weeks gestation of 07/24/2017 W O30.043 Twin , dichorionic/diamnio tic, third trimester 07/24/2017 W O34.211 Previous Low Transverse 07/24/2017 W O40.3xx1 Polyhydramnios, third trimester, fetus 1 07/24/2017 W Z3A.36 36 weeks gestation of Procedures Code Description [place] [address] Ultrasnd preg 11/24/2014 uterus, flwup/repeat 61219 OB Visit No 11/24/2014 Charge 78777 Routine care 12/21/2014 and delivery 49334 Venpnctr 04/25/2015 fngr/heel/ear stick routne 35929 Assay thyroid 04/25/2015 stimulating hormone 14513 OB Visit No 02/05/2017 Charge 78625 RhIG, human, 02/05/2017 mini-dose, intramusc 86250 Injection 02/05/2017 Administration 42229 Ultrasnd exam 03/27/2017 of preg uterus, compl 40030 Ultrasnd,preg 03/27/2017 cow[place]itz compl aft 1st tri 47691 Influenza, A 03/28/2017 or B, antigen detection by enzyme immunoassay 82941 Office visit - 03/28/2017 new pt, level 2 56915 Cult, bactr, 04/02/2017 maile colonycnt, urine 14712 Ultrasnd preg 05/21/2017 uterus, flwup/repeat 23398 Ultrasnd preg 06/26/2017 uterus, flwup/repeat 65309 Ultrasnd preg 07/17/2017 uterus, flwup/repeat 45360 biophys 07/17/2017 prfl w/o nstress test 99873 biophys 07/24/2017 prfl w/o nstress test Results Test Result Range L200.0020 - 05/02/16 08:48 ICTERUS < 2 0-7 HEMOLYSIS < 15 0-25 TURBIDITY < 20 0-20 SODIUM 139 MEQ/L 134-144 POTASSIUM 4.4 MEQ/L 3.6-5 CHLORIDE 109 MEQ/L 98-107 CO2 - CARBON DIOXIDE 22 MEQ/L 22-30 ANION GAP 8 MEQ/L 5-15 BLOOD UREA NITROGEN 9.0 MG/DL 7-17 CREATININE 0.8 MG/DL 0.7-1.2 BUN/CREATININE RATIO 11 RATIO 6-26 GLOMERULAR FILTRATION RATE 85 GLUCOSE 90 MG/DL 65-110 OSMOLALITY,CALCULATED 267 MOSM/KG 261-280 CALCIUM 9.3 MG/DL 8.4-10.2 BILIRUBIN,TOTAL 0.50 MG/DL 0.20-1.30 ALKALINE PHOSPHATASE 93 U/L 38-126 TOTAL PROTEIN 7.7 G/DL 6.3-8.2 ALBUMIN 4.0 G/DL 3.5-5.0 GLOBULIN 3.7 G/DL 2.4-3.6 ALBUMIN/GLOBULIN RATIO 1.1 RATIO 1.1-2.2 AST (SGOT) 18 U/L 14-36 ALT (SGPT) 24 U/L 9-52 L200.6775 - 05/02/16 08:48 HEMOGLOBIN A1C 5.3 % 6.1-7.9 L200.3850 - 05/02/16 08:48 THYROID STIM HORMONE-TSH 2.41 MIU/L 0.47-4.68 L750.8895 - 05/02/16 08:48 THYROPEROXIDASE AB - AMS <3 IU/mL 0-6 THYROGLOBULIN AB SCREEN - AMS <3 IU/mL 0-5 L200.1350 - 05/02/16 08:48 CHOLESTEROL 177 MG/DL 132-199 TRIGLYCERIDES 128 MG/DL 35-135 HDL CHOLESTEROL, DIRECT 49 MG/DL 40-60 LDL CHOLESTEROL,CALCULATED 102.4 66-159 VLDL CHOLESTEROL 25.6 MG/DL 0-28 RISK FACTOR 3.6 RATIO 0-4.0 L200.3700 - 05/02/16 08:48 T3 FREE 3.67 PG/ML 2.77-5.27 L200.3600 - 05/02/16 08:48 FREE T4 (FREE THYROXINE) 0.94 NG/DL 0.78-2.19 L200.2360 - 05/02/16 08:48 VITAMIN B12 317 PG/ML 239-931 L750.9430 - 05/02/16 08:48 VITAMIN D 25-HYDROXY D3 44 ng/mL VITAMIN D 25-HYDROXY D2 <7 ng/mL VITAMIN D 25-HYDROXY TOTAL 44 ng/mL 30-74 L750.9410 - 05/02/16 08:48 PYRIDOXIDAL 5-PHOS, VIT B6-AMS 5 mcg/L 5-50 L100.0050 - 05/02/16 08:49 WBC - WHITE BLOOD COUNT 7.6 T/MM3 4.5-11.0 RED BLOOD COUNT 4.66 M/MM3 4.00-5.20 HGB - HEMOGLOBIN 13.1 GM/DL 12-16 HCT - HEMATOCRIT 40.6 % 36-46 MEAN CORPUSCULAR VOLUME 87.1 UM3 80-100 MEAN CORPUSCULAR HGB 28.1 UUG 26-34 MEAN CORPUSCULAR HGB CONC(MCHC 32.3 GM/DL 31-37 RDW STANDARD DEVIATION 43.1 FL 36.9-50.2 PLT - PLATELET COUNT 302 T/MM3 130-400 MEAN PLATELET VOLUME 10.2 UM3 9.4-12.4 NEUTROPHILS % (AUTO) 65.9 % 33-66 LYMPHOCYTES % (AUTO) 27.7 % 23-45 MONOCYTES % (AUTO) 4.1 % 0-9.0 EOSINOPHILS % (AUTO) 1.7 % 0-4 BASOPHILS % (AUTO) 0.5 % 0-2 IMMATURE GRANULOCYTE % (AUTO) 0.1 % 0.0-0.5 NEUTROPHILS # (AUTO) 5.0 T/MM3 1.8-7.7 LYMPHOCYTES # (AUTO) 2.1 T/MM3 1-4.8 MONOCYTES # (AUTO) 0.3 T/MM3 0-0.8 EOSINOPHILS # (AUTO) 0.1 T/MM3 0-0.5 BASOPHILS # (AUTO) 0.0 T/MM3 0-0.2 IMMATURE GRANULOCYTE # (AUTO) 0.01 T/MM3 0.00-0.03 L575.0899 - 05/03/16 07:[address]REJECT[facility] L[facility] LAB TO RECOLLECT L750.6310 - 05/03/16 08:45 MAGNESIUM (MG) RBCS 4.1 mg/dL 3.5-7.1 L200.3902 - 06/10/16 13:16 HCG-QUANTITATIVE < 2.39 mIU/mL L750.3828 - 06/10/16 13:16 ESTRADIOL - AMS 41 pg/mL L750.7651 - 06/10/16 13:16 PROGESTERONE - AMS <0.1 ng/mL L300.5950 - 09/13/16 09:26 HCG,Quantitative 5.59 mIU/mL NRG L300.5950 - 09/23/16 12:53 HCG,Quantitative 2.82 mIU/mL NRG Parvovirus B19, Human, IgG/IgM - 01/22/17 17:44 Parvovirus B19, IgG 4.0 index 0.0-0.8 Parvovirus B19, IgM 0.1 index 0.0-0.8 Encounters ACCT No. Visit Discharge Status Pt. Type Provider Facility Loc./Unit Complaint Date/Time [id number] 03/28/2017 03/28/2017 DIS Outpatient Fast Sarika JEAN PFC_ H 15:40:10 16:20:34 Jose Angel on Ritchie [id number] 09/23/2016 09/23/2016 DIS Outpatient NITHIN, LAB lab 13 12:41:00 12:42:00 JARRED Thomas [id number] 09/13/2016 09/13/2016 DIS Outpatient NITHIN, LAB lab 42 09:10:00 09:11:00 JARRED Thomas [id number] 06/10/2016 06/10/2016 CLS Outpatient NITHIN Corbett LAB 85 12:55:00 23:59:59 [facility] [id number] 05/03/2016 05/03/2016 CLS Outpatient NGAAUER Corbett LAB 52 08:34:00 23:59:59 , [facility] [id number] 05/02/2016 05/02/2016 CLS Outpatient IJEOMA Corbett LAB 26 08:27:00 23:59:59 , [facility] [id number] 08/01/2017 PEN Preadmit MICKEY Corbett Repeat C 86 07:30:00 , [facility] [id number] 03/28/2017 03/28/2017 DIS Outpatient Fast Sarika JEAN PFC_ H 15:40:10 16:20:34 Jose Angel on Ritchie [id number] 01/24/2017 Document 23 16:23:00 Registrati on [id number] 07/17/2017 07/17/2017 [facility] Outpatient Mickey, 13:50:00 23:59:59 El Cornell [id number] 07/17/2017 07/17/2017 [facility] Outpatient Mickey, 13:15:00 23:59:59 El Cornell [id number] 07/10/2017 07/10/2017 [facility] Outpatient Sobbing, 10:45:00 23:59:59 Jun Mckeon [id number] 07/02/2017 07/02/2017 CLS Outpatient Mickey, 10:15:00 23:59:59 El Cornell [id number] 06/26/2017 06/26/2017 [facility] Outpatient Mickey, 10:30:00 23:59:59 El Cornell [id number] 06/26/2017 06/26/2017 CLS Outpatient Mickey, 08:40:00 23:59:59 El Cornell [id number] 06/19/2017 06/19/2017 CLS Outpatient Mickey, 09:10:00 23:59:59 El Cornell [id number] 06/04/2017 06/04/2017 CLS Outpatient Mickey, 13:30:00 23:59:59 El Cornell [id number] 05/23/2017 05/23/2017 CLS Outpatient Hutchinson, 10:30:00 23:59:59 Lindsay Han [id number] 05/21/2017 05/21/2017 CLS Outpatient Mickey, 11:05:00 23:59:59 El Cornell [id number] 05/21/2017 05/21/2017 CLS Outpatient Mickey, 10:15:00 23:59:59 El Cornell [id number] 05/06/2017 05/06/2017 CLS Outpatient Mickey, 08:30:00 23:59:59 El Cornell [id number] 05/02/2017 05/02/2017 CLS Outpatient Mickey, 11:30:00 23:59:59 El Cornell [id number] 04/17/2017 04/17/2017 CLS Outpatient Mickey, 13:45:00 23:59:59 El Cornell [id number] 04/10/2017 04/10/2017 CLS Outpatient Mickey, 13:56:00 23:59:59 El Cornell [id number] 04/02/2017 04/02/2017 CLS Outpatient Mickey, 09:18:00 23:59:59 El Cornell [id number] 03/27/2017 03/27/2017 CLS Outpatient Mickey, 13:45:00 23:59:59 El Cornell [id number] 03/27/2017 03/27/2017 CLS Outpatient Mickey, 12:45:00 23:59:59 El Cornell [id number] 03/12/2017 03/12/2017 CLS Outpatient Mickey, 13:40:00 23:59:59 El Cornell [id number] 02/26/2017 02/26/2017 CLS Outpatient Mickey, 13:40:00 23:59:59 El Cornell [id number] 02/19/2017 02/19/2017 CLS Outpatient Mickey, 14:00:00 23:59:59 El Cornell [id number] 02/11/2017 02/11/2017 CLS Outpatient Mickey, 08:30:00 23:59:59 El Cornell [id number] 02/06/2017 02/06/2017 CLS Outpatient Mickey, 10:30:00 23:59:59 El Cornell [id number] 02/05/2017 02/05/2017 CLS Outpatient Hutchinson, 08:15:00 23:59:59 Lindsay Han [id number] 01/22/2017 01/22/2017 CLS Outpatient Mickey, 13:15:00 23:59:59 El Cornell [id number] 02/23/2016 02/23/2016 CLS Outpatient Mickey, 14:21:00 23:59:59 El Cornell [id number] 01/18/2016 01/18/2016 CLS Outpatient Mickey, 08:30:00 23:59:59 El Cornell [id number] 12/18/2015 12/18/2015 CLS Outpatient Mickey, 08:07:00 23:59:59 El Cornell [id number] 11/24/2015 11/24/2015 CLS Outpatient Mickey, 13:35:00 23:59:59 El Cornell [id number] 10/25/2015 10/25/2015 CLS Outpatient Mickey, 15:23:00 23:59:59 El Cornell [id number] 2015 2015 CLS Outpatient Mickey, 11:42:00 23:59:59 El Cornell [id number] 05/08/2015 05/08/2015 CLS Outpatient Mickey, 11:21:00 23:59:59 El Cornell [id number] 04/25/2015 04/25/2015 CLS Outpatient Mickey, 15:29:00 23:59:59 El Cornell [id number] 04/06/2015 04/06/2015 CLS Outpatient Mickey, 10:09:00 23:59:59 El Cornell [id number] 03/16/2015 03/16/2015 CLS Outpatient Mickey, 08:35:00 23:59:59 El Cornell [id number] 03/15/2015 03/15/2015 CLS Outpatient Mickey, 09:31:00 23:59:59 El Cornell [id number] 02/08/2015 02/08/2015 CLS Outpatient Mickey, 21:00:00 23:59:59 El Cornell [id number] 02/07/2015 02/07/2015 CLS Outpatient Mickey, 10:00:00 23:59:59 El Cornell [id number] 01/30/2015 01/30/2015 CLS Outpatient Mickey, 13:04:00 23:59:59 El Cornell [id number] 01/13/2015 01/13/2015 CLS Outpatient Mickey, 13:25:00 23:59:59 El Cornell [id number] 01/03/2015 01/03/2015 CLS Outpatient Mickey, 08:38:00 23:59:59 El Cornell [id number] 12/29/2014 12/29/2014 CLS Outpatient Mickey, 15:57:00 23:59:59 El Cornell [id number] 12/27/2014 12/27/2014 CLS Outpatient Mickey, 11:30:00 23:59:59 El Cornell [id number] 12/21/2014 12/21/2014 CLS Outpatient Mickey, 16:03:00 23:59:59 El Cornell [id number] 12/15/2014 12/15/2014 CLS Outpatient Mickey, 08:45:00 23:59:59 El Cornell [id number] 12/09/2014 12/09/2014 CLS Outpatient Mickey, 08:28:00 23:59:59 El Cornell [id number] 12/09/2014 12/09/2014 CLS Outpatient Mickey, 08:01:00 23:59:59 El Cornell [id number] 12/08/2014 12/08/2014 CLS Outpatient Mickey, 09:10:00 23:59:59 El Cornell [id number] 12/05/2014 12/05/2014 CLS Outpatient Mickey, 10:58:00 23:59:59 El Cornell [id number] 12/01/2014 12/01/2014 CLS Outpatient Mickey, 08:45:00 23:59:59 El Cornell [id number] 11/24/2014 11/24/2014 CLS Outpatient Holdeman, 14:00:00 23:59:59 Christy Penny [id number] 11/24/2014 11/24/2014 CLS Outpatient Mickey, 13:45:00 23:59:59 El Cornell [id number] 11/10/2014 11/10/2014 CLS Outpatient Mickey, 16:30:00 23:59:59 El Cornell [id number] 10/27/2014 10/27/2014 CLS Outpatient Mickey, 08:50:00 23:59:59 El Cornell [id number] 07/24/2017 Document 13:15:00 Registrati on [id number] 07/17/2017 07/17/2017 CLS Outpatient Mickey, 13:50:00 23:59:59 El Cornell [id number] 07/17/2017 07/17/2017 CLS Outpatient Mickey, 13:15:00 23:59:59 El Cornell [id number] 07/10/2017 07/10/2017 CLS Outpatient Sobbing, 10:45:00 23:59:59 Jun Mckeon [id number] 07/02/2017 07/02/2017 CLS Outpatient Mickey, 10:15:00 23:59:59 El Cornell [id number] 06/26/2017 06/26/2017 CLS Outpatient Mickey, 10:30:00 23:59:59 El Cornell [id number] 06/26/2017 06/26/2017 CLS Outpatient Mickey, 08:40:00 23:59:59 El Cornell [id number] 06/19/2017 06/19/2017 CLS Outpatient Mickey, 09:10:00 23:59:59 El Cornell [id number] 06/04/2017 06/04/2017 CLS Outpatient Mickey, 13:30:00 23:59:59 El Cornell [id number] 05/23/2017 05/23/2017 CLS Outpatient Hutchinson, 10:30:00 23:59:59 Lindsay Han [id number] 05/21/2017 05/21/2017 CLS Outpatient Mickey, 11:05:00 23:59:59 El Cornell [id number] 05/21/2017 05/21/2017 CLS Outpatient Mickey, 10:15:00 23:59:59 El Cornell [id number] 05/06/2017 05/06/2017 CLS Outpatient Mickey, 08:30:00 23:59:59 El Cornell [id number] 05/02/2017 05/02/2017 CLS Outpatient Mickey, 11:30:00 23:59:59 El Cornell [id number] 04/17/2017 04/17/2017 CLS Outpatient Mickey, 13:45:00 23:59:59 El Cornell [id number] 04/10/2017 04/10/2017 CLS Outpatient Mickey, 13:56:00 23:59:59 El Cornell [id number] 04/02/2017 04/02/2017 CLS Outpatient Mickey, 09:18:00 23:59:59 El Cornell [id number] 03/27/2017 03/27/2017 CLS Outpatient Mickey, 13:45:00 23:59:59 El Cornell [id number] 03/27/2017 03/27/2017 CLS Outpatient Mickey, 12:45:00 23:59:59 El Cornell [id number] 03/12/2017 03/12/2017 CLS Outpatient Mickey, 13:40:00 23:59:59 El Cornell [id number] 02/26/2017 02/26/2017 CLS Outpatient Mickey, 13:40:00 23:59:59 El Cornell [id number] 02/19/2017 02/19/2017 CLS Outpatient Mickey, 14:00:00 23:59:59 El Cornell [id number] 02/11/2017 02/11/2017 CLS Outpatient Mickey, 08:30:00 23:59:59 El Cornell [id number] 02/06/2017 02/06/2017 CLS Outpatient Mickey, 10:30:00 23:59:59 El Cornell [id number] 02/05/2017 02/05/2017 CLS Outpatient Hutchinson, 08:15:00 23:59:59 Lindsay Han [id number] 01/22/2017 01/22/2017 CLS Outpatient Mickey, 13:15:00 23:59:59 El Cornell [id number] 02/23/2016 02/23/2016 CLS Outpatient Mickey, 14:21:00 23:59:59 El Cornell [id number] 01/18/2016 01/18/2016 CLS Outpatient Mickey, 08:30:00 23:59:59 El Cornell [id number] 12/18/2015 12/18/2015 CLS Outpatient Mickey, 08:07:00 23:59:59 El Cornell [id number] 11/24/2015 11/24/2015 CLS Outpatient Imckey, 13:35:00 23:59:59 El Cornell [id number] 10/25/2015 10/25/2015 CLS Outpatient Mickey, 15:23:00 23:59:59 El Cornell [id number] 2015 2015 CLS Outpatient Mickey, 11:42:00 23:59:59 El Cornell [id number] 05/08/2015 05/08/2015 CLS Outpatient Mickey, 11:21:00 23:59:59 El Cornell [id number] 04/25/2015 04/25/2015 CLS Outpatient Mickey, 15:29:00 23:59:59 El Cornell [id number] 04/06/2015 04/06/2015 CLS Outpatient Mickey, 10:09:00 23:59:59 El Cornell [id number] 03/16/2015 03/16/2015 CLS Outpatient Mickey, 08:35:00 23:59:59 El Cornell [id number] 03/15/2015 03/15/2015 CLS Outpatient Mickey, 09:31:00 23:59:59 El Cornell [id number] 02/08/2015 02/08/2015 CLS Outpatient Mickey, 21:00:00 23:59:59 El Cornell [id number] 02/07/2015 02/07/2015 CLS Outpatient Mickey, 10:00:00 23:59:59 El Cornell [id number] 01/30/2015 01/30/2015 CLS Outpatient Mickey, 13:04:00 23:59:59 El Cornell [id number] 01/13/2015 01/13/2015 CLS Outpatient Mickey, 13:25:00 23:59:59 El Cornell [id number] 01/03/2015 01/03/2015 CLS Outpatient Mickey, 08:38:00 23:59:59 El Cornell [id number] 12/29/2014 12/29/2014 CLS Outpatient Mickey, 15:57:00 23:59:59 El Cornell [id number] 12/27/2014 12/27/2014 CLS Outpatient Mickey, 11:30:00 23:59:59 El Cornell [id number] 12/21/2014 12/21/2014 CLS Outpatient Mickey, 16:03:00 23:59:59 El Cornell [id number] 12/15/2014 12/15/2014 CLS Outpatient Mickey, 08:45:00 23:59:59 El Cornell [id number] 12/09/2014 12/09/2014 CLS Outpatient Mickey, 08:28:00 23:59:59 El Cornell [id number] 12/09/2014 12/09/2014 CLS Outpatient Mickey, 08:01:00 23:59:59 El Cornell [id number] 12/08/2014 12/08/2014 CLS Outpatient Mickey, 09:10:00 23:59:59 El Cornell [id number] 12/05/2014 12/05/2014 CLS Outpatient Mickey, 10:58:00 23:59:59 El Cornell [id number] 12/01/2014 12/01/2014 CLS Outpatient Mickey, 08:45:00 23:59:59 El Cornell [id number] 11/24/2014 11/24/2014 CLS Outpatient Holdeman, 14:00:00 23:59:59 Christy Penny [id number] 11/24/2014 11/24/2014 CLS Outpatient Mickey, 13:45:00 23:59:59 El Cornell [id number] 11/10/2014 11/10/2014 CLS Outpatient Mickey, 16:30:00 23:59:59 El Cornell [id number] 10/27/2014 10/27/2014 CLS Outpatient Mickey, 08:50:00 23:59:59 El Cornell [id number] 07/24/2017 Document 13:15:00 Registrati on
--- OUTSIDE RECORDS SUMMARY | 2017-07-24 18:24 | External Medical Summary | Continuity of Care Document ---
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 700 Provider: katrin Finley, third 8 Medical El [address] [id number] weeks Center [place], 1522, gestation of Jori Lopez, 120, Medical [facility] [id number], [place], Jori 120, [place] [id number] [place], tel:+ , [place]. [place], tel:[phone]. [id number] tel:[phone] Ben [place] Twin , Cordell Referring In Womens Ultrasound dichorionic/diamn 0-201 El. 700 Provider: katrin Finley, third 8 Medical El PO Box trimesterPrevious Center [place], 1522, Low Transverse Jori Lopez C-SectionMatern 120, [facility], [facility] [id number], susp poor fetl [place], Jori 120, [place] grth, third tri, [id number] Aric, tel: [id number] weeks , [place]. [place], gestation of tel:[phone]. [id number] tel:[phone] Ben [place] Twin , Sobbing Referring In Womens dichorionic/diamn 3-201 Jun. Provider: katrin Finley, third 8 700 El PO Box trimesterPrevious Medical [place], 1522, Low Transverse Center Rosendo Agustin-SectionEndo, Drive, [facility], nutritional and [facility] [id number], metab diseases 120, Jori 120, [place] comp preg, third Aric [place], tel: triType A blood, [place], [place], Rh negative 25663, [id number]. [place]. tel: tel:[phone] Associates Aric Twin , Apr-2 [place] Referring In Womens dichorionic/diamn 5-201 El. 700 Provider: katrin Finley, third 8 Medical El PO Box [email or web address] weeks Center [place] Cornell, 1522, gestation of [place] Lopez, 120, Medical [place], [facility] [id number], [place], [place]ori 120, [place] [id number] [place], tel: , [place]. [place], tel:[phone]. [id number] tel:[phone] Associates Aric Spotting Apr-1 [place] Referring In Womens Ultrasound complicating 9-201 El. 700 Provider: Gustavo DIMAS, , third 8 Medical El PO Box trimesterTwin Center [place] R, 1522, , [place] Lopez, dichorionic/diamn 120, Medical [place], iotic, third [facility] [id number], trimesterPrevious [place], Jori 120, [place] Low Transverse [id number] Aric, tel: C-Rjwrfpy15 weeks , [place]. [place], gestation of tel:[phone]. [id number] tel:[phone] Ben [place] Twin , Apr-1 [place] Referring In Womens dichorionic/diamn 9-201 [place]. 700 Provider: debbie Finleyic, third 8 Medical El PO Box trimesterPrevious Center [place] R, 1522, Low Transverse Jori Lopez, C-SectionAnemia 120, Medical [place], complicating [facility] [id number], , third [place], Jori 120, [place] trimesterEndo, [id number] Aric, tel: nutritional and , [place]. [place], metab diseases tel:[phone]. comp preg, third [id number] tel: tri [phone] Bne [place] Twin , Apr-1 [place] Referring In Womens dichorionic/diamn 2-201 [place]. 700 Provider: Gustavo DIMAS iotic, third 8 Medical El PO Box weeks Center [place] R, 1522, gestation of Jori Lopez, 120, Medical STACEY Aric, [place] [id number], [place], Jori 120, [place] [id number] Aric, tel:+ , [place]. [place], tel: [phone]. [id number] tel:[phone] Ben [place] Twin , Mar-2 [place] Referring In Womens dichorionic/diamn 8-201 El. 700 Provider: katrin Finley, third 8 Medical El PO Box [id number] weeks Center [place] R, 1522, gestation of Jori Lopez, 120, Medical Aric IBARRA, [place] [id number], [place], Jori 120, [place] [id number] Aric, tel:+ , [place]. [place], tel: [phone]. [id number] tel:[phone] Ben [place] Mar-1 [place] Referring In Womens 6-201 [place]. Provider: Gustavo DIMAS, 8 700 [facility] Cord[place] R, 1522, Center [address], [facility], 120, [place] [id number], [place], [facility] 120, [place] Aric IBARRA, tel: [phone] [place], , [place]. [id number]. tel: tel:[phone] Ben [place] Twin , Mar-1 [place] Referring In Womens dichorionic/diamn 4-201 El. 700 Provider: Gustavo DIMAS iotblake, second 8 Medical El PO Box [id number] weeks Center [place] R, 1522, gestation of Jori Lopez, 120, Medical [facility]ric [facility] [id number], [place], Jori 120, [place] [id number] Aric, tel: , [place]. [place], tel: [phone]. [id number] tel:[phone] Ben [place] Spotting Mar-1 [place] Referring In Womens Ultrasound complicating 4-201 El. 700 Provider: Gustavo DIMAS, , second 8 Medical [facility] Box trimesterTwin Center [place] R, 1522, , Jori Lopez, dichorionic/diamn 120, Medical STACEY, iotic, second [facility] [id number], trimesterPrevious [place], [facility] 120, [place] Low Transverse [id number] Aric, tel: C-Yrxifto14 weeks , [place]. [place], gestation of tel:[phone]. [id number] tel:[phone] Ben [place] Twin , Feb-2 [place] Referring In Womens dichorionic/diamn 7-201 El. 700 Provider: katrin Finley, second 8 Medical El PO Box trimesterEndo, Center [place] R, 1522, nutritional and Dr Jori 700 [place], metab diseases 120, Medical [place], comp preg, second [facility] [id number], tri25 weeks [place], [facility] 120, [place] gestation of [id number] Aric, tel: pregnancyType A , [place]. [place], blood, Rh tel:[phone]. negative [id number] tel:[phone] Ben [place] Twin , Feb-2 [place] Referring In Womens dichorionic/diamn 3-201 El. 700 Provider: katrin Finley, second 8 Medical El PO Box [id number] weeks Center [place] R, 1522, gestation of J[place] Lopez, 120, Medical [place], [facility] [id number], [place], [facility] 120, [place] [id number] Aric, tel: , [place]. [place], tel:[phone]. [id number] tel:[phone] Ben [place] Twin , Feb-0 [place] Referring In Womens dichorionic/diamn 8-201 [place]. 700 Provider: Health katrin DIMAS, second 8 Medical El PO Box trimesterPrevious Center [place] R, 1522, Low Transverse Dr Jori 700 [place], C-SectionEndo, 120, Medical STACEY, nutritional and [facility] [id number], metab diseases [place], [facility] 120, [place] comp preg, second [id number] Aric, tel: tri22 weeks , [place]. [place], gestation of tel:[phone]. [id number] tel:[phone] Ben [place] Oth Jesus-2 [place] Referring In Womens related 4-201 El. 700 Provider: Health PA, conditions, 8 Medical El PO Box second trimester Center [place] Cornell, 1522, Jori Lopez, 120, Medical STACEY, [place], [place] [id number], [place], Jori 120, [place] [id number] Aric, tel: , [place]. [place], tel:[phone]. [id number] tel:[phone] Ben [place] Twin , Jeuss-1 [place] Referring In Womens dichorionic/diamn 8-201 El. 700 Provider: Health JUDIE, iotic, second 8 Medical El PO Box [id number] weeks Center [place] Cornell, 1522, gestation of Jori Lopez, 120, Medical Aric [facility] [id number], [place], [place]ori 120, [place] [id number] Aric, tel: , [place]. [place], tel:[phone]. [id number] tel:[phone] Ben [place] Twin , Mar- [place] Referring In Womens Ultrasound dichorionic/diamn 8-201 [place]. 700 Provider: Gustavo DIMAS iotic, second 8 Medical El PO Box trimesterPrevious Center [place] Cornell, 1522, Low Transverse Jori Lopez, C-SectionEndo, 120, Medical STACEY, nutritional and [facility] [id number], metab diseases [place], Jori 120, [place] comp preg, second [id number] Aric, tel: tri19 weeks , [place]. [place], gestation of tel: [phone]. [id number] tel:[phone] Ben [place] Twin , Jesus-0 [place] Referring In Womens dichorionic/diamn 3-201 El. 700 Provider: Health JUDIE, iotic, second 8 Medical El PO Box [id number] weeks Center [place] Cornell, 1522, gestation of Jori Lopez, 120, Medical STACEY, [place], [place] [id number], [place], Jori 120, [place] [id number] Aric, tel: , [place]. [place], tel:[phone]. [id number] tel:[phone] Associates Aric Spotting Dec-2 [place] Referring In Womens complicating 0-201 El. 700 Provider: Health JUDIE, , second 7 Medical El PO Box trimesterEndo, [place] R, 1522, nutritional and Jori Lopezta, metab diseases 120, Medical [place], comp preg, second [facility] [id number], tri15 weeks [place], Jori 120, [place] gestation of [id number] Aric, tel: , [place]. [place] tel: [phone]. [id number] tel:[phone] Associates Aric Spotting Dec-1 [place] Referring In Womens complicating 3-201 El. 700 Provider: Health JUDIE, , second 7 Medical El PO Box trimesterTwin Center [place] R, 1522, , Jori Lopez, dichorionic/diamn 120, Medical [place], iotic, second [facility] [id number], [id number] weeks [place], Jori 120, [place] gestation of [id number] Aric, tel: , [place]. [place], tel: [phone]. [id number] tel:[phone] Associates Aric Spotting Dec-0 [place] Referring In Womens complicating 5-201 El. 700 Provider: Health JUDIE, , first 7 Medical El PO Box [id number] weeks Center [place] R, 1522, gestation of Jori Lopez, 120, Medical Aric [facility] [id number], [place], Jori 120, [place] [id number] Aric, tel: , [place]. [place], tel: [phone]. [id number] tel:[phone] Associates Aric Spotting Nov-3 [place] Referring In Womens complicating 0-201 El. 700 Provider: Health JUDIE, , first 7 Medical El PO Box [email or web address] weeks Center [place] R, 1522, gestation of Jori Lopez, 120, Medical Aric [facility] [id number], [place], Jori 120, [place] [id number] Aric, tel: , [place]. [place], tel: [phone]. [id number] tel:[phone] Ben [place] Hemorrhage in Nov- [place] Referring In Womens early , 9- [place]. Provider: Gustavo DIMAS, unspecifiedTwin 7 700 El PO Box , Medical [place] R, 1522, dichorionic/diamn Center 700 [place], iotblake, first , [facility], [id number] weeks 120, [place] [id number], gestation of [place], Jori 120, [place] Aric IBARRA, tel:[phone] [place], , [place]. [id number]. tel: tel: [phone] Ben [place] Supervision of Cordell Referring In Womens other high risk - [place]. 700 Provider: Gustavo DIMAS, pregnancies, 7 Medical El PO Box first Center [place] R, 1522, trimesterTwin , Jori 700 [place], , 120, Medical [place], dichorionic/diamn [facility] [id number], iot, On license of [facility], Jori 120, [place] trimesterEncntr [id number] Aric, tel: screen for , [place]. [place], infections w sexl tel: [phone]. 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 700 Provider: Gustavo DIMAS, (routine) w/o abn 6 Medical Tommy Wedel PO Box findings Center L, [address], , Jori 609, [place], 120, [place], [place], [place], [address]. , [place], tel: [place] [phone] tel: , [place]. tel: [phone] Ben [place] Hypothyroidism, Apr- [place] Referring In Womens unspecified - [place]. 700 Provider: Gustavo DIMAS, 6 Medical Tommy Wedel PO Box Center L, [address], , Jori 609, [place], 120, [place], [place], [place], [address]. [id number], [place], tel: [place] [phone] tel: , [place]. tel: [phone] Ben [place] Hypothyroidism, Dec-0 [place] Referring In Womens unspecifiedPostpa 1201 [place]. 700 Provider: Health JUDIE, rtum Follow-Up, [address] [facility] PO Box Routine Center L, [address], , Jori 609, [place], 120, [place], [place], [place], [address]. , [place], tel: [place] [phone] tel: , [place]. tel: [phone] Ben [place] Oct-2 [place] Referring In Womens Follow-Up, 0-201 [place]. 700 Provider: Health JUDIE, Routine 5 Medical Tommy [facility] PO Box Center L, [address], , Jori 60Eunice, [place], 120, [place], [place], [place], [address]. , [place], tel: [phone] tel: , [place]. tel: [phone] Ben [place] Thyroid Oct-0 [place] Referring In Womens Dysfunction w/ - [place]. 700 Provider: Health JUDIE, PregnancyRoutine [address] [facility] PO Box Care, Center L, [address], [id number] , Jori Freddie, [place], weeks gestation 120, [place], [place], [place], [address]. , [place], tel: [phone] tel: , [place]. tel: [phone] Ben [place] Sep-1 [place] Referring In Womens 7-201 [place]. Provider: Health PA, 5 700 El PO Box Medical [place] R, 1522, Center [address] Dr Chang, [facility] Medical [place], 120, Center [id number], Aric Jori 120, [place] STACEY, [place], tel:[phone] [place], , [place]. [id number]. tel: tel: [phone] Associates Aric Sep-1 [place] Referring In Womens 6-201 [place]. 700 Provider: Health PA, 5 [facility] PO Box Center Cord[place] R, 1522, , Jori 700 [place], [facility], Medical [place], [facility] [id number], [place], [place] [address], [id number] [place], tel: , . [place], tel: [phone]. [id number] tel:[phone] Associates Aric Mar-3 [place] Referring In Womens 0-201 [place]. 700 Provider: Health JUDIE, 3 [facility] Box Center L, [address], , Jori 609, [place], [facility], [place], [place], [place], [address]. , [place], tel: [phone] tel: , . tel: [phone] Associates Aric Mar-0 [place] Referring In Womens 3-201 [place]. 700 Provider: Health JUDIE, 2 [facility] Box Center L, [address], , Jori 609, [place], [facility], [place], [place], [place], [address]. [id number], [place], tel: [phone] tel: , [place]. tel: [phone] Family History Family Member Diagnosis Age At [...] Covered libertarian ID Authorization(s) [place] [id number] [place] [id number] [place] [id number] [place] [id number] [place] [id number] [place] [id number] Social History Type Description Quantity Date Captured Alcohol Use Details No Caffeine Use Details Unknown Tobacco Use Status Unknown Smoking Status Never smoker Vital Signs Date / Height Weight BMI Pulse Blood Temperature Respiratory Body Head BMI Time: Rate Pressure Rate Surface Circumference percentile Area 286.60 44.8 132/74 2018 lbs 8 mm[Hg] 10:24 kg/m AM eter (2) Chief Complaint And Reason For Visit Unknown Chief Complaint And Reason For Visit Reason For Referral Reason For Referral Unknown Plan Of Care Date Type Action Status Appointment Biju Pollard BOOKED Appointment Biju Pollard BOOKED Appointment Biju Pollard [facility] R C/S, PPTL BOOKED Future Order: Radiology Order Ultrasound OB Follow-up ([id number]) Ordered Future Order: Radiology Order Ultrasound OB Follow-up ([id number]) Ordered Future Order: Radiology Order Complete OB Ultrasound > 14 Ordered Weeks ([id number]) Future Order: Radiology Order Ultrasound OB Follow-up ([id number]) Ordered Future Order: Radiology Order Biophysical Profile without NST Ordered ([id number]) Future Order: Lab Order Pap Smear With [...]
--- OUTSIDE RECORDS SUMMARY | 2017-07-24 18:24 | External Medical Summary | Continuity of Care Document ---
:1985 Author Organization [facility] Address [address] [place], [place] [address] Phone Care Team Providers Name Role Phone Slava Cullen MD Unavailable Unavailable Allergies, Adverse Reactions, Alerts Substance Reaction Severity Status ciprofloxacin Hives & Nausea Unknown Active CIPROFLOXACIN HCL Hives & Nausea Unknown Active Medications Medication Instructions Dosage Effective Status Comments Dates (start - stop) folic acid 800 mcg take 3 tablet by 2.4 MG - Active tablet oral route every day Synthroid 75 mcg take 1 tablet by 75 MCG - Active tablet oral route every day MICRhoGAM - - Active Ultra-Filtered PLUS 250 unit (50 mcg) intramuscular syringe 27 mg-0.8 take 1 tablet by Not Available - Active mg tablet oral route every day Keflex 500 mg take 1 capsule by 500 MG - No Longer capsule ORAL route 3 times Active every day Problems Condition Effective Dates (start - stop) Clinical Status 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 (general) - (routine) w/o 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 Follow-Up, Routine - Oth related conditions, - second trimester Hemorrhage in early , - unspecified Twin , - dichorionic/diamniotic, first trimester 12 weeks gestation of - Twin , - [...] gestation of - Active Procedures Procedure Date Cult, bactr, maile colonycnt, urine Cult, bactr, ident isolate, urine Results Test Name Date and Time Measure Units Reference Range Abnormal Flag Comments Panel Description: Bacteria identified in Urine by Culture CULTURE, URINE, 15:25:00 SEE NOTE CULTURE, URINE, ROUTINE ROUTINE MICRO NUMBER: [id number] TEST STATUS: FINAL SPECIMEN SOURCE: URINE SPECIMEN QUALITY: ADEQUATE RESULT: Single organism less than 10,000 CFU/mL isolated. These organisms, commonly found on external and internal genitalia, are considered colonizers. No further testing performed.REPORT COMMENT:RFASTING:UNKNOWNTest performed at [facility] [id number] [place] [address]Igvurjck: SHY CRUZ DO,MPH Advance Directives Directive Yes / No Effective Date File Name Unknown Encounters Encounter Practice Location Reason(s) Diagnoses Date Provider Care Team Description For Visit Members Ben [place] Twin , Apr- Cord[place] Referring In Womens dichorionic/diamn 8- [place]. 700 Provider: katrin Finley, [address] trimesterPrevious Center Annie aCntu, Low Transverse Dr [facility] Rosendo Agustin-SectionEndo, 120, Medical [place], [facility] [id number], metab diseases [place], [facility] 120, [place] comp preg, second [id number] Aric, tel: tri22 weeks , [place]. [place], gestation of tel:[phone]. [id number] tel:[phone] Ben [place]ett Apr-0 Cordell In Womens 1-201 [place]. 700 Gustavo DIMAS, Javon [facility] [address] [place], [facility], NDAric [id number], [place], [place] [id number] tel: , [place]. tel: [phone] Ben [place] Oth Mar- Cord[place] Referring In Womens related 4-201 [place]. 700 Provider: donald Finley, [address] [place] [address] Box second trimester Center [address] [place], 120, Medical STACEY, [facility] [id number], [place], [facility] 120, [place] [id number] Aric, tel: , [place]. [place], tel: [phone]. [id number] tel:[phone] Associates Aric Twin , Jesus-1 [place] Referring In Womens dichorionic/diamn 8-201 [place]. 700 Provider: katrin Finley, second 8 Medical El PO Box [id number] weeks Center [place] R, 1522, gestation of Jori Lopez, 120, Medical Aric IBARRA, Hen[place] [id number], [place], Jori 120, [place] [id number] Aric, tel: , [place]. [place] tel: [phone]. [id number] tel:[phone] Associates Aric Twin , Jesus-1 [place] Referring In Womens Ultrasound dichorionic/diamn 8-201 [place]. 700 Provider: Health JUDIE iotblake, second 8 Medical El PO Box trimesterPrevious Center Cord[place] R, 1522, Low Transverse Jori Lopez, C-SectionEndo, 120, Medical STACEY, [facility] [id number], metab diseases [place], Jori 120, [place] comp preg, second [id number] Aric, tel: tri19 weeks , [place]. [place], gestation of tel: [phone]. [id number] tel:[phone] Associates Aric Twin , Jesus-0 [place] Referring In Womens dichorionic/diamn 3-201 [place]. 700 Provider: Gustavo DIMAS iotblake, second 8 Medical El PO Box [email or web address] weeks Center Cordell Cornell, 1522, gestation of Jori Lopez, 120, Medical [facility] [id number], [place], Jori 120, [place] [id number] Aric, tel: , [place]. [place], tel: [phone]. [id number] tel:[phone] Associates Aric Spotting Dec-2 [place] Referring In Womens complicating 0-201 [place]. 700 Provider: Health PA, , second 7 Medical El PO Box trimesterEndo, Center [place] Cornell, 1522, nutritional and Jori Lopez, metab diseases 120, Medical [place], comp preg, second Aric Henley [id number], tri15 weeks ND, Jori 120, [place] gestation of [id number] Aric, tel: , [place]. [place], tel: [phone]. [id number] tel:[phone] Associates Aric Spotting Dec-1 [place] Referring In Womens complicating 3-201 [place]. 700 Provider: Health JUDIE, , second 7 Medical El PO Box trimesterTwin Center [place] R, 1522, , Jori Lopez, dichorionic/diamn 120, Medical STACEY, iotic, second Emily [place] Dr [id number], [email or web address] weeks ND, [facility] 120, [place] gestation of [id number] Aric, tel: , [place]. [place], tel: [phone]. [id number] tel:[phone] Associates Aric Spotting Dec-0 [place] Referring In Womens complicating 5-201 [place]. 700 Provider: Gustavo DIMAS, , first 7 Medical El PO Box [email or web address] weeks Center Cordell R, 1522, gestation of Jori Lopez, 120, Medical [facility] [id number], [place], [facility] 120, [place] [id number] Aric, tel: , [place]. [place], tel: [phone]. [phone] tel:[phone] Associates Aric Spotting Nov-3 [place]ell Referring In Womens complicating 0-201 [place]. 700 Provider: Gustavo DIMAS, , first 7 Medical El PO Box [id number] weeks Henley Cordell R, 1522, gestation of Jori Lopez, 120, Medical Aric IBAR[address] Center [address] [id number], [place], [facility] 120, [place] [id number] Aric, tel: , [place]. [place], tel: [phone]. [id number] tel:[phone] Associates Aric Hemorrhage in Nov-2 [place] Referring In Womens early , 9-201 [place]. Provider: Gustavo DIMAS, unspecifiedTwin 7 700 El PO Box , Medical Cordell R, 1522, dichorionic/diamn Center Saskia Downing, iotblake, first Jori Lopez, weeks 120, Center [id number], gestation of [place], Jori 120, [place] Aric IBARRA, tel: [phone] [place], , [place]. [id number]. tel: tel: [phone] Ben Corbett Supervision of Cordell Referring In Womens other high risk - [place]. 700 Provider: Gustavo DIMAS, pregnancies, 7 Medical [place] PO Box first Center Cordell R, 1522, trimesterTwin , Jori 700 [place], , 120, Medical [place], dichorionic/diamn Aric, Henley [id number], iotic, first ND, [facility] 120, [place] trimesterEncntr [id number] Aric, tel: screen for , [place]. [place], infections w sexl tel: [phone]. 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 700 Provider: Gustavo DIMAS, (routine) w/o abn 6 [facility] findings Center L, [address], , Jori 609, [place], 120, [place], [place], [place], [address]. , [place], tel: [place] [phone] tel: , [place]. tel: [phone] Ben [place] Hypothyroidism, Cord[place] Referring In Womens unspecified [place]. 700 Provider: Gustavo DIMAS, 6 Medical Tommy [facility] PO Box Center L, [address], , Jori 609, [place], 120, [place], [place], [place], [address]. , [place], tel: [place] [phone] tel: , [place]. tel: [phone] Ben [place] Hypothyroidism, Feb- Cord[place] Referring In Womens unspecifiedPostpa [place]. 700 Provider: Gustavo DIMAS, rtum Follow-Up, 5 Medical Tommy Wedel PO Box Routine Center L, [address], , Jori 609, [place], 120, [place], [place], [place], [address]. [id number], [place], tel: [place] [phone] tel: , [place]. tel: [phone] Ben Corbett Oct-2 [place]ell Referring In Womens Follow-Up, 0-201 [place]. 700 Provider: Gustavo DIMAS, Routine 5 Medical Tommy Ruiz PO Box Center L, [address], , Jori 609, [place], 120, [place], [place], [place], [address]. [id number], [place], tel: [place] [phone] tel: , [place]. tel: [phone] Ben [place]ett Thyroid Oct-0 [place] Referring In Womens Dysfunction w/ 1-201 [place]. 700 Provider: Gustaov DIMAS, PregnancyRoutine 5 Medical Tommy [facility] PO Box Care, Center L, [address], [email or web address] , Jori [address], [place], weeks gestation 120, [place], [place], [place], [address]. , [place], tel: [place] [phone] tel: , [place]. tel: [phone] Ben [place] Sep-1 [place] Referring In Womens 7-201 [place]. Provider: Gustavo DIMAS, [address] [place] [address] Cord[place] R, 1522, Center [address] Dr Chang, [facility], 120, Hen[place] [id number], Aric, [facility] 120, Aric IBARRA, tel: [phone] [place], , [place]. [id number]. tel: tel: [phone] Ben Corbett Mayo-1 Cordell Referring In Womens 6-201 [place]. 700 Provider: Health JUDIE, 5 [facility] Box Center Cord[place] R, 1522, , Jori 700 [place], 120, Medical STACEY, Arci, Center [id number], STACEY, [facility] 120, [place] [id number] Aric, tel: , . [place] tel: [phone]. [phone] tel:[phone] Associates Aric Mar-3 [place] Referring In Womens 0-201 [place]. 700 Provider: Health JUDIE, 3 Medical Tommy [facility] PO Box Center L, [address], , Jori 609, [place], 120, [place], [place], [place], [address]. , [place], tel: [phone] tel: , . tel: [phone] Associates Aric Jesus-0 [place] Referring In Womens 3-201 [place]. 700 Provider: Health JUDIE, 2 Medical Tommy [facility] PO Box Center L, [address], , Jori 609, [place], 120, [place], [place], [place], [address]. , [place], tel: [phone] tel: , . tel: [phone] Family History Family Member Diagnosis Age At [...] Insurance type Covered alliance party ID Authorization(s) [facility] [id number] [facility] [id number] [facility] [id number] [facility] [id number] Social History Type Description Quantity Date Captured [...] Appointment Biju Pollard BOOKED Appointment Biju Pollard [facility]/S, PPTL BOOKED Future Order: Radiology Order Complete OB Ultrasound > 14 Ordered Weeks ([id number]) Future Order: Lab Order Pap Smear With [...]
--- OUTSIDE RECORDS SUMMARY | 2017-07-24 18:24 | External Medical Summary | Continuity of Care Document ---
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 700 Provider: Gustavo DIMAS, , second 7 Medical El BONNER [facility] [place] Cornell, 1522, nutritional and Dr Jori 700 [place], metab diseases comp 120, Medical [place], preg, second tri[address] [place] [id number], weeks gestation of [place], [place] 120, [place] [id number] Aric, tel: , [place]. STACEY, tel: [phone]. [id number] tel:[phone] Ben Jennings Cord[place] Referring In Womens complicating 3-201 [place]. 700 Provider: Gustavo DIMAS, , second 7 Medical El Box trimesterTwin [place] Cornell, 1522, , Dr Jori 700 [place], dichorionic/diamnio 120, Medical [place], tic, second Emily [place] Dr [id number], weeks STACEY Jori 120, [place] gestation of [id number] Aric, tel: , [place]. [place], tel: [phone]. [id number] tel:[phone] Ben Corbett Spotting Dec-0 Cordell Referring In Womens complicating 5-201 [place]. 700 Provider: Gustavo DIMAS, , first 7 Medical El PO Box [email or web address] weeks Center [place] R, 1522, gestation of Jori Lopez 700 [place], 120, Medical Aric IBARRA, [place] [id number], [place], [place] 120, [place] [id number] Aric, tel: , [place]. [place], tel: [phone]. [id number] tel:[phone] Ben Corbett Spotting Nov-3 [place] Referring In Womens complicating 0-201 El. 700 Provider: Gustavo DIMAS, , first 7 Medical El PO Box [id number] weeks Center [place] R, 1522, gestation of Jori Lopez, 120, Medical A[facility] [id number], [place], [place] 120, [place] [id number] Aric, tel: , [place]. [place], tel: [phone]. [phone] tel:[phone] Ben [place]rett Hemorrhage in early Jan- [place] Referring In Womens , 9-201 [place]. Provider: Gustavo DIMAS, unspecifiedTwin 7 700 El PO Box , Medical [place] R, 1522, dichorionic/diamnio Center 700 tay Downing, first Lopez [place] Monica IBARRA, [email or web address] weeks 120, [place] [id number], gestation of Aric [place] 120, [place] Aric IBARRA, tel: [phone] [place], , [place]. [id number]. tel: tel: [phone] Ben Corbett Supervision of Cordell Referring In Womens other high risk 5-201 El. 700 Provider: Gustavo DIAMS, pregnancies, first 7 Medical El PO Box trimesterTwin Center Cord[place] R, 1522, , Jori Lopez, dichorionic/diamnio 120, Medical tay IBARRA, Emily [address] Dr [id number], trimesterEncntr STACEY, Jori 120, [place] screen for [id number] Aric, tel: infections w sexl , [place]. [place], mode of tel: [phone]. 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 700 Provider: Gustavo DIMAS, w/o 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 6 Medical Tommy [facility] PO Box Center L, [address], , Jori 609, [place], 120, [place], [place], [place], [address]. , [place], tel: [phone] tel: , [place]. tel: [phone] Associates Aric Hypothyroidism, Apr- [place] Referring In Womens unspecified 6-201 [place]. 700 Provider: Gustavo DIMAS, 6 Medical Tommy [facility] PO Box Center L, [address], , Jori 609, [place], 120, [place], [place], [place], [address]. , [place], tel: [phone] tel: , [place]. tel: [phone] Associates Aric Hypothyroidism, Dec-0 [place] Referring In Womens unspecifiedPostpart 1-201 [place]. 700 Provider: Gustavo DIMAS, um Follow-Up, 5 Medical Tommy [facility] PO Box Routine Center L, [address], , Jori 609, [place], 120, [place], [place], [place], [address]. , [place], tel: [place] [phone] tel: , [place]. tel: [phone] Ben [place] Oct-2 [place]ell Referring In Womens Follow-Up, Routine 0-201 El. 700 Provider: Gustavo DIMAS, 5 [facility] PO Box Center L, [address], , Joir 609, [place], 120, [place], [place], [place], [address]. , [place], tel: [place] [phone] tel: , [place]. tel: [phone] Ben [place] Thyroid Dysfunction Oct-0 Cord[place] Referring In Womens w/ PregnancyRoutine 1-201 [place]. 700 Provider: Health JUDIE, Care, 5 [facility] Box [id number] Center L, [address], weeks gestation of , Jori 609, [place], 120, [place], [place], [place], [address]. [id number], [place], tel: [place] [phone] tel: , [place]. tel: [phone] Ben [place] Sep-1 [place] Referring In Womens 7-201 [place]. Provider: Gustavo DIMAS, [address] [place] [address] R, 1522, Center [address] Dr Chang, [facility], 120, [place] [id number], [place], [place] 120, [facility], tel: [phone] [place], , [place]. [id number]. tel: tel: [phone] Ben [place] Sep-1 Cordell Referring In Womens 6-201 [place]. 700 Provider: Health JUDIE, 5 [facility] [place] R, 1522, , Jori 700 [place], 120, Medical STACEY, Aric, [place] [id number], [place], [place] 120, [place] [id number] Aric, tel: , . [place], tel: [phone]. [id number] tel:[phone] Ben [place]ett Jesus-3 [place] Referring In Womens 0-201 [place]. 700 Provider: Health JUDIE, 3 [facility] Center L, [address], , Jori 60Eunice, [place], 120, [place], [place], [place], [address]. , [place], tel: [place] [phone] tel: , [place]. tel: [phone] Ben [place] Jesus-0 [place] Referring In Womens 3-201 [place]. 700 Provider: Gustavo DIMAS, Zackery Medical Tommy Ruiz PO Box Center L, [address], Dr, Jori 609, [place], 120, STACEY [place], [place], [address]. [id number], [place], tel: [phone] tel: , [place]. [address] tel: [phone] Family History Family Member Diagnosis Age At [...] name Insurance type Covered libertarian ID Authorization(s) [facility] [id number] [facility] [id number] [facility] [id number] [facility] [id number] Social History Type Description Quantity Date Captured Alcohol Use Details No Caffeine Use Details Unknown Tobacco Use Status Unknown Smoking Status Never smoker Vital Signs Date / Height Weight BMI Pulse Blood Temperature Respiratory Body Head BMI Time: Rate Pressure Rate Surface Circumference percentile Area 262.50 41.1 lbs 1 mm[Hg] 2:23 kg/m PM eter (2) Chief Complaint And [...]
[2017-07-24] MEDS ORDERED: MORPHINE SULFATE PF 5mg/10ml INJ (Duramorph) ONE (19:42)
[2017-07-24] MEDS ORDERED: FentaNYL 250 MCG/5 ML INJECTION ONE (19:43)
[2017-07-24] MEDS ORDERED: EPHEDRINE 50mg/ml INJECTION ONE ×2 (19:44→21:01)
[2017-07-24] MEDS ORDERED: SALINE FLUSH 10ml SYRINGE ONE (19:45)
[2017-07-24] MEDS ORDERED: NALOXONE 2 MG/2 ML INJECTION PFS IVP PRN (19:51)
--- NOTE | 2017-07-24 19:51 | Anesthesia Preoperative Report ---
Anesthesia Epidural/Spinal Rec - Date and Time Date: 07/24/17 Procedure: Plan: Spinal - Vital Signs /Para: P:1 - Medictaions & Allergies Inpatient Medications: Current Medications Lactated Ringer's (Lactated Ringers) 1,000 mls @ 150 mls/hr IV .Q6H40M RENE Allergies/Adverse Reactions: Allergies Allergy/AdvReac Type Severity Reaction Status Date / Time ciprofloxacin Allergy Verified 04/19/11 13:12 ciprofloxacin HCl Allergy Uncoded 04/19/11 13:12 - Home Medications Home Medications: Home Medications Medication Instructions Recorded Confirmed Type Docosahexanoic Acid [ Dha] 1 cap PO DAILY #0 cap 12/01/14 History Colace 07/09/17 History Folic Acid DAILY 07/09/17 History Iron DAILY 07/09/17 History Synthroid DAILY 07/09/17 History Vitamin C DAILY 07/09/17 History Zantac 07/09/17 History - Medical History Respiratory: DENIES: Asthma Gastrointestional: Reports: Gastroesophageal Reflux Disease (moderately controlled with meds) Renal/Endocrine: Reports: Thyroid Disease (takes synthroid) DENIES: Diabetes Mellitus Type 2 (no gestational diabetes) Other History: Reports: Now - Surgical History Reproductive Surgery/Treatment: Reports: Section, Dilation and Curettage, Laparoscopy Anesthesia Reactions: None Hx Family Anesthesia Reaction: No History of Motion Sickness: No - Social History Smoking Status: Never smoker Second Hand Exposure: No Substance Use Type: does not use - Pertinent Findings Lab Data: CBC and BMP 07/24/17 18:25 - Physical Exam Respiratory Exam: lungs clear, bilateral breath sounds equal Cardiovascular Exam: regular rate and rhythm - Airway Assessment Mallampati Score: II TMD: 3 Fingerbreadths Neck Extension: good Overall Assessment: may be difficult mask vent, may be difficult intubation - ASA ASA Score: 2 - Discussion Discussion: Discussed risks/options/alternatives of anesthesia and questions answered. Patient consents. Nursing pain assessment noted. Anesthesia Discussion: spouse Attestation Statement: Prior to the delivery of any anesthetic medication, I examined the patient, developed the plan, obtained the patient's consent and discussed the risk and benefits of the procedure with the patient/guardian. - Additional Information Comments: originally scheduled for next Friday, but moved to today due to polyhydramnios and multiple gestation.
[2017-07-24] MEDS: LR 1,000 ML IV SCH ×2 (20:04→21:01)
[2017-07-24] MEDS ORDERED: BUPIVACAINE 0.75%/DEXTROSE 8.5% SPINAL 2 ML AMPULE IJ ONE (20:37)
[2017-07-24] MEDS ORDERED: LIDOCAINE 2% (100mg/5mL) 5ml PF SDV ONE (20:39)
[2017-07-24 21:10] VITALS: BMI 46.4
[2017-07-24] MEDS ORDERED: OXYTOCIN BOLUS BAG 30 UNIT/500 ML ML IV SCH (21:15)
[2017-07-24] MEDS ORDERED: OXYTOCIN DRIP 30 UNIT/500 ML ML IV SCH (22:17)
[2017-07-24] MEDS ORDERED: HYDROCORTISONE 2.5% CREAM 30gm RECTALLY PRN (22:17)
[2017-07-24] MEDS ORDERED: SALINE FLUSH 10ml SYRINGE IV PRN (22:17)
[2017-07-24] MEDS ORDERED: CALCIUM CARBONATE Chewable 500mg TABLET PO PRN (22:17)
[2017-07-24] MEDS ORDERED: ONDANSETRON 4 MG/2 ML INJECTION IVP PRN (22:17)
[2017-07-24] MEDS ORDERED: METOCLOPRAMIDE 10mg/2ml INJECTION IVP PRN (22:17)
[2017-07-24] MEDS ORDERED: D5LR 1,000 ML IV SCH (22:17)
[2017-07-24] MEDS ORDERED: ACETAMINOPHEN 500 MG TABLET PO PRN (22:17)
[2017-07-24] MEDS ORDERED: DiphenhydrAMINE 25 MG CAPSULE PO PRN (22:17)
[2017-07-24] MEDS: IBUPROFEN 800 MG TABLET PO PRN (23:12)
[2017-07-24] MEDS: HYDROCODONE/APAP 5mg/325mg TABLET PO PRN (23:12)
[2017-07-25] MEDS: HYDROCODONE/APAP 5mg/325mg TABLET PO PRN ×5 (04:15→23:27)
[2017-07-25] MEDS: IBUPROFEN 800 MG TABLET PO PRN ×3 (08:11→23:27)
--- NOTE | 2017-07-25 08:20 | Operative Note ---
DATE OF SURGERY: 07/24/2017 PREOPERATIVE DIAGNOSES 1. 32-year-old white female G4, P1 at 36.6 weeks gestational age. 2. TWIN gestation (DI/DI) from IUI. 3. polyhydramnios x2 necessitating early delivery. 4. Maternal hypothyroid. 5. Desires sterilization. POSTOPERATIVE DIAGNOSES 1. Twin A - male, vertex, 2774 grams, 7/9 Apgars, moderate polyhydramnios ( Palmer). 2. Twin B, male , vertex, 2772 grams, 7/9 Apgars, mild polyhydramnios ( Lucy). PROCEDURES: Repeat low transverse section and modified merced tubal ligation. EBL: 1000 mL ANESTHESIA: Spinal by Nicolás Madera CRNA SURGEON: El Landa MD INTENSIVIST: Jun Connor DO COMPLICATIONS: polyhydramnios in both twins necessitating early delivery recommended by Maternal Medicine Specialist. DESCRIPTION OF PROCEDURE After adequate spinal anesthesia, the patient was prepped and draped in the left lateral decubitus position. A Pfannenstiel skin incision was made with a sharp knife through the old scar and carried down to the fascia, which was incised transversely with the Pearson scissors. The rectus fascia was bluntly and sharply dissected off the rectus muscle. The rectus muscle was divided, and the peritoneum was isolated, elevated, entered with the Metzenbaum scissors and extended cephalad and caudad. The bladder blade was then inserted. The lower vesicouterine fold of the peritoneum was isolated and incised transversely. The bladder was bluntly dissected off the lower uterine segment. The bladder blade was reinserted. Then using a sharp knife, a transverse incision was made in the lower uterine segment. This was extended with my fingers. Fluid was clear and we delivered twin A from the vertex position without difficulty. Infant was bulb suctioned after delivery of the head and then again after delivery of the body. Cord was clamped in a long fashion to allow the blood to drain into baby. Dr. Won Menezes of Pediatrics received the infant. Once twin A was delivered and into the isolette, twin B was delivered in the same fashion. was by one minute. Once both twins were delivered, then the placenta was manually extracted from the uterus and saved to draw blood because of maternal blood type being negative. We marked the cord for twin A with a plastic clamp and placenta will be sent to pathology because of the dual polyhydramnios. The uterus was then allowed to fall upon the external abdominal wall. The endometrial cavity was cleansed using moist lap sponges. The uterus was closed using 0-Monocryl in a running locking fashion. Hemostasis was confirmed. The posterior cul-de-sac was cleansed of old blood clots and the tubes and ovaries were examined and found to be normal in size, shape and appearance. Our attention was then turned to tubal ligation. The right fallopian tube was isolated and then a mid-isthmic portion of the tube was grasped with the Fontana clamp, elevated and then a knuckle of the tube was ligated using 2-0 chromic. A Rose clamp was passed through the meso of the tube and then the proximal and distal aspects of the knuckle of the tube were ligated using 2-0 silk. The knuckle of the tube was excised and sent to surgical pathology for lumen confirmation. This procedure was then repeated on the left side and hemostasis was confirmed. After hemostasis was again confirmed, the uterus was then carefully returned to the abdominal cavity. The abdomen was then closed in layers. The peritoneum was closed using 2-0 Vicryl in running nonlocking fashion. The fascia was closed using 0-Vicryl in a running nonlocking fashion bilaterally from the lateral aspects medially. Hemostasis was achieved with the subcutaneous tissue. 2-0 plain gut was used to close space. The skin was closed using wide anant in a serial fashion. Three horizontal mattress sutures of 3-0 Monocryl was were placed to keep the skin edges everted.The patient tolerated the procedure well and went to the recovery room in stable condition. Pad, sponge and needle counts were correct and urine postop was clear and free flowing. MTDD
[2017-07-25] MEDS: SIMETHICONE 80 MG CHEWABLE TABLET PO SCH ×3 (11:16→23:27)
[2017-07-25] MEDS: DOCUSATE CALCIUM 240 MG CAPSULE PO SCH (11:16)
--- NOTE | 2017-07-25 13:06 | Pharmacy Consult ---
Pharmacy Consult-Rhophylac - Laboratory Information 07/24/17 07/24/17 07/25/17 18:25 22:17 05:05 Hgb /Adult Ratio 0.0000 Blood Type A Negative RhIG Candidate? Is a candidate Rh FACTOR CONSULT: Mother Blood Type = A negative Child Blood Type = [place]: A positive [place]: A positive Hgb / Adult Ratio = 0.0000 Will give Rho D Immunglobulin 300mcg IV x 1 dose. Thank you.
[2017-07-25] MEDS ORDERED: RHO(D) IMMUNE GLOBULIN 300 MCG/2 ML INJECTION IVP ONE (13:15)
--- NOTE | 2017-07-25 13:15 | Progress Note ---
OB PP Progress Note Free Text - Date Date: 07/25/17 - Progress Note Progress Note: vss af hgb noted no c/o q&a-krb
[2017-07-25] MEDS ORDERED: RHOPHYLAC - PHARMACY CONSULT MC ONE (15:31)
--- NOTE | 2017-07-25 17:12 | Progress Note ---
OB PP Progress Note Free Text - Date Date: 07/25/17 - Progress Note Progress Note: doing ok vss af cont current care plan q&a-krb
[2017-07-26] MEDS: HYDROCODONE/APAP 5mg/325mg TABLET PO PRN ×4 (03:58→18:37)
[2017-07-26] MEDS: IBUPROFEN 800 MG TABLET PO PRN ×3 (07:50→23:08)
[2017-07-26] MEDS: DOCUSATE CALCIUM 240 MG CAPSULE PO SCH (09:18)
[2017-07-26] MEDS: SIMETHICONE 80 MG CHEWABLE TABLET PO SCH ×4 (09:18→20:18)
--- NOTE | 2017-07-26 10:00 | OB/GYN Progress Note ---
OB-PP Progress Note - General PPD2 Maternal blood type: A- Maternal Rubella Status: Immune General: Pt reports bladder pain, not with urination. Otherwise doing well. - Subjective Date: 07/26/17 Lochia: Minimal Pain: controlled Voiding: voiding Nausea or Vomiting Present: No - Objective Vital Signs: Last Vital Signs Temp 98.6 F 07/26/17 03:35 Pulse 88 07/26/17 08:35 Resp 16 07/26/17 08:35 BP 132/72 07/26/17 08:35 Pulse Ox 98 07/26/17 08:35 Urine Output: good Abdomen: fundus firm, non-tender Incision: clean, dry Extremities: non-tender - Assessment Assessment: SP, Repeat C/S, Tubal Ligation - Plan Plan: routine care Expected date of discharge: 07/27/17 Will add Azo, plan for dismissal tomorrow.
--- NOTE | 2017-07-26 12:42 | Anesthesia Postoperative Note ---
- Date and Time Date: 07/26/17 Time: 12:05 - Status Patient Participated in Evaluation: Patient Participated in Person Vital Signs: Temperature 98.6 F 07/26/17 03:35 Pulse Rate 88 07/26/17 08:35 Respiratory Rate 16 07/26/17 08:35 Blood Pressure 132/72 07/26/17 08:35 Pulse Oximetry 98 07/26/17 08:35 Respiratory Function: Airway Patent Mental Status: Alert and Oriented Pain Intensity: 0 Hydration: Taking PO Fluids Complications During Recover: None Apparent - Follow-Up Instructions Instructions: Per Surgeon
[2017-07-26] MEDS: PHENAZOPYRIDINE 95 MG TABLET PO SCH ×2 (13:00→18:37)
[2017-07-26 14:19] VITALS: RESP 18
[2017-07-26] MEDS: SIMETHICONE 80 MG CHEWABLE TABLET PO PRN ×2 (18:37→23:08)
[2017-07-26 18:41] VITALS: TEMP 98.3
[2017-07-27] MEDS: HYDROCODONE/APAP 5mg/325mg TABLET PO PRN (06:36)
[2017-07-27 07:23] VITALS: BP 119/64; PULSE 85; O2SAT 98
[2017-07-27] MEDS: SIMETHICONE 80 MG CHEWABLE TABLET PO SCH (09:00)
[2017-07-27] MEDS: DOCUSATE CALCIUM 240 MG CAPSULE PO SCH (09:00)
[2017-07-27] MEDS: PHENAZOPYRIDINE 95 MG TABLET PO SCH (09:00)
== END 2017-07-27 11:10 | disposition home or self-care (01) | DRG 765 ==
LOC: MC 15:45
PROVIDERS: ADMIT Obstetrics & Gynecology; ATTEND Obstetrics & Gynecology